=== PATIENT | male | born 1955 | race Caucasian/White ===

== ENCOUNTER → 2017-03-17 | Outpatient (CLI) | payer MEDICARE, OTHER ==
[~2017-03-17] MED LIST: AMLO5TAB4 PO; AMOX500T2 PO; ASP325T PO; ASP325TEC PO; ASP81TEC PO; ASPI-983 PO; ASPI81TA57 PO; ATEN-147 PO; ATEN-158 PO; ATEN50TA PO; CETI10TA17 PO; CETI10TA20 PO; CLOP75TA PO; CLOP75TA28 PO; DIPH25TA65 PO; DOCU-143 PO; DOXA2TAB2 PO; DOXY100T19 PO; EPIN0.3P3 IJ; FAMO20TA5 PO; FENO134C PO; HCT25T PO; HYDR12.56 PO; ISM30TCR PO; ISOS30TA3 PO; LISI2.5T85 PO; LISI5TAB PO; LISINOPRIL; LOVA40TA2 PO; LOVASTATIN; LSRT50T PO; METO-387 PO; MTP25TSR PO; OMG1KC PO; PRD10T PO; PRD20T PO; PRD50T PO; PRED20TA PO; RANI-10 PO; SENN-1 PO; TAMS0.4C2 PO; TICA90TA PO; TMSL.4C PO
== END ==
LOC: CARD 10:42
PROVIDERS: ATTEND Physician Assistant
DX: I34.0 Nonrheumatic mitral (valve) insufficiency; I10 Essential (primary) hypertension; I25.10 Atherosclerotic heart disease of native coronary artery without angina pectoris; I51.7 Cardiomegaly
CPT/HCPCS: 93306

== ENCOUNTER → 2017-06-04 | Outpatient (CLI) | payer MEDICARE, OTHER ==
[~2017-06-04] MED LIST changes: +REGADENOSON 0.4 MG/5 ML SYR (LEXISCAN) IV ONE
[2017-06-04] MEDS: CATHETER FLUSH 10 ML SYR IV PRN ×2 (08:07→09:23)
[2017-06-04 09:19] VITALS: BP 148/76
--- NOTE | 2017-06-05 06:52 | STRESS TEST ---
DATE OF SERVICE: 06/04/2017 PROCEDURE: LEXISCAN MYOVIEW STRESS TEST REFERRING PHYSICIAN: Baseline heart rate is 53, baseline blood pressure 148/76. Baseline EKG is sinus rhythm with left bundle branch block. In summary, the patient was injected with 10.97 mCi of technetium-99 Myoview and the resting images were obtained. Then, the patient received 0.4 mg of Lexiscan followed by 28.7 mCi of technetium-99 Myoview. Throughout the test, there were no EKG changes. The resting and stress images were reviewed and compared in the short axis, horizontal long axis, and vertical long axis views. Review of the images showed reversible ischemia involving the mid to apical anterior wall, anterior septum and anterolateral wall. SSS is 15. SDS 7. TID value 1.01. On the gated images, the left ventricle appeared to be dilated with end diastolic volume 139 mL and systolic volume 73 mL. Calculated ejection fraction 48%. Mild hypokinesia was noted diffusely. CONCLUSION: 1. The patient tolerated Lexiscan well. 2. Left bundle branch block was noted throughout test. 3. Reversible ischemia involving the mid to apical anterior wall, anteroseptum and anterolateral wall. 4. Dilated left ventricle with mild diffuse left ventricular hypokinesia calculated ejection fraction 48%. Job ID: [id number] DocumentID: [id number] Dictated Date: 06/04/2017 11:42:09 Tack Maker Date: 06/04/2017 12:54:33 Dictated By: DESMOND PERKINS MD
== END ==
LOC: CARD 07:42
PROVIDERS: ATTEND Physician Assistant
DX: I25.10 Atherosclerotic heart disease of native coronary artery without angina pectoris (principal); I11.9 Hypertensive heart disease without heart failure; I34.0 Nonrheumatic mitral (valve) insufficiency
CPT/HCPCS: 78452; 93017

== ENCOUNTER 2017-06-11 11:32 | Day surgery (SDC) | payer MEDICARE ==
[2017-06-11] VITALS (9 sets, daily range): BP systolic 146–175; BP diastolic 72–89
[~2017-06-11] VITALS: Ht 182.9 cm; Wt 126.3 kg
[~2017-06-11 11:32] MED LIST changes: -AMLO5TAB4 PO; -METO-387 PO; -REGADENOSON 0.4 MG/5 ML SYR (LEXISCAN) IV ONE; -SENN-1 PO; -TAMS0.4C2 PO
[2017-06-11] MEDS ORDERED: NS IV 1000 ML 1,000 ML ONE (11:34)
[2017-06-11] MEDS ORDERED: HEParin (CATH LAB) 2,000 ML IV ONE (11:34)
--- OUTSIDE RECORDS SUMMARY | 2017-06-11 11:37 | XMS REPORT ---
Author MIKA Pollard [facility] eClinicalWorks Address Unknown Phone Unavailable Care Team Providers Care Ticket Agent Name Role Phone MIKA DAVE Unavailable Allergies, Adverse Reactions, Alerts Substance Reaction Event Type Zocor Info Not Available Drug Allergy Amoxicillin anaphylaxis/swelling Drug Allergy Problems Problem Type Condition Code Onset Dates Condition Status Assessment Angioedema T78.3XXA Active Problem Angioedema T78.3XXA Active Medications Medication Code System Code Instructions Start Date End Date Status Dosage Isosorbide Mononitrate [facility] [address]-64 30 MG Orally Once a day 1 tablet Zyrtec Allergy [facility] [address]-19 10 MG Orally Once a day 1 tablet as needed Colace [facility] [address]-89 100 MG Orally Once a day 1 capsule as needed Nitroglycerin [facility] [address]-59 0.4 mg March 01, 2014 1 tablet by Sublingual route every 5 PRN chest pain; NTE 3 tabs in 15 min Fenofibrate [facility] [address]-10 134 MG Orally Once a day 1 capsule with a meal Flomax [facility] 80329070641 0.4 TAKE ONE CAPSULE BY MOUTH DAILY Aspirin [facility] [address]-36 81 MG Orally Once a day 1 tablet Tylenol Extra Strength [facility] [address]-27 500 MG Orally BID 2 tablets as needed EPINEPHrine [facility] [address]-50 0.3 MG/0.3ML Injection Jun 05, 2015 as directed Plavix [facility] [address]-29 75 MG Orally Once a day January 14, 2014 1 tablet Atenolol [facility] [address]-74 50 mg Oct 15, 2013 1 tablet by Oral route 1 time per day Procedures Procedure Coding System Code Date Office Visit, Est Pt., Level 2 CPT-4 52518 Jul 16, 2016 [facility] VISIT ESTABLISHED PATIENT CPT-4 G0467 Jul 16, 2016 Vital Signs Date/Time: Jul 16, 2016 Cardiac Monitoring Heart Rate 62 bpm Weight 286 lbs Height 72 in BMI 38.78 Index Blood Pressure Diastolic 80 mmHg Blood Pressure Systolic 120 mmHg Results No Known Results Summary Purpose eClinicalWorks Submission
--- OUTSIDE RECORDS SUMMARY | 2017-06-11 11:37 | XMS REPORT ---
Author MIKA Pollard [facility] eClinicalWorks Address Unknown Phone Unavailable Care Team Providers Care Retail Wireless Sales Representative Name Role Phone MIKA DAVE CP Unavailable Allergies No Known Allergies Problems Problem Type Condition Code Onset Dates Condition Status Problem Intermediate coronary syndrome 411.1 Active Problem Essential hypertension, benign 401.1 Active Problem Angioedema T78.3XXA Active Problem Esophageal reflux 530.81 Active Problem Unspecified venous (peripheral) insufficiency 459.81 Active Problem Hypertrophy (benign) of prostate with urinary obstruction and other lower urinary tract symptoms [LUTS] 600.01 Active Problem Lumbago 724.2 Active Medications No Known Medications Results No Known Results Summary Purpose eClinicalWorks Submission
--- OUTSIDE RECORDS SUMMARY | 2017-06-11 11:38 | XMS REPORT ---
Author Author CESAR CHRISTIAN Organization [facility] Address [address] [place] [address] Care Team Providers Care Buffing Wheel Operator Name Role Phone CESAR CHRISTIAN Unavailable PROBLEMS Type Condition ICD9-CM Code [id number] Code Onset Dates Condition Status SNOMED Code Problem Angioedema T78.3XXA Active 53862233 Assessment Acute pain of right knee M25.561 May, Active 73522821 ALLERGIES Substance Reaction Event Type Date Status Zocor Unknown Drug Allergy May, Active Amoxicillin anaphylaxis/swelling Drug Allergy May, Active SOCIAL HISTORY No smoking Hx information available PLAN OF CARE VITAL SIGNS Height 72 in 2016-05-31 Weight 287.8 lbs 2016-05-31 Heart Rate 58 bpm 2016-05-31 Respiratory Rate 22 2016-05-31 BMI 39.03 kg/m2 2016-05-31 Blood pressure systolic 110 mmHg 2016-05-31 Blood pressure diastolic 70 mmHg 2016-05-31 MEDICATIONS Medication Instructions Dosage Frequency Start Date End Date Duration Status Zyrtec Allergy 10 MG Orally Once a day 1 tablet as needed 24h Active Atenolol 50 mg 1 tablet by Oral route 1 time per day Oct, Active Plavix 75 MG Orally Once a day 1 tablet 24h January, Active Aspirin 81 MG Orally Once a day 1 tablet 24h Active Isosorbide Mononitrate 30 MG Orally Once a day 1 tablet 24h Active Flomax 0.4 TAKE ONE CAPSULE BY MOUTH DAILY 30 Active Colace 100 MG Orally Once a day 1 capsule as needed 24h Active Tylenol Extra Strength 500 MG Orally BID 2 tablets as needed 12h Active Fenofibrate 134 MG Orally Once a day 1 capsule with a meal 24h Active RESULTS Name Result Date Reference Range Xray : Knee, Right 3 views (IN HOUSE) 2016-05-31 PROCEDURES Procedure Date Ordered Related Diagnosis Body Site X-RAY EXAM OF KNEE, 3 May 31, 2016 [facility] VISIT ESTABLISHED PATIENT May 31, 2016 Office Visit, Est Pt., Level 3 May 31, 2016 IMMUNIZATIONS No Known Immunizations
--- OUTSIDE RECORDS SUMMARY | 2017-06-11 11:38 | XMS REPORT ---
Author MIKA Pollard [facility] eClinicalWorks Address Unknown Phone Unavailable Care Team Providers Care Manager Client Name Role Phone MIKA DAVE CP Unavailable [...]
--- OUTSIDE RECORDS SUMMARY | 2017-06-11 11:38 | XMS REPORT ---
Author Author MIKA DAVE [facility] eClinicalWorks Address Unknown Phone Unavailable Care Team Providers Care Truck Terminal Manager Name Role Phone MIKA DAVE CP Unavailable [...]
--- OUTSIDE RECORDS SUMMARY | 2017-06-11 11:38 | XMS REPORT ---
Author MIKA Pollard [facility] eClinicalWorks Address Unknown Phone Unavailable Care Team Providers Care Mixer And Blender Name Role Phone MIKA DAVE CP Unavailable Allergies, Adverse Reactions, Alerts Substance Reaction Event Type N.K.D.A. Info Not Available Non Drug Allergy Problems Problem Type Condition ICD-9 Code Onset Dates Condition Status Assessment Angioedema 995.1 Active Problem Intermediate coronary syndrome 411.1 Active Problem Essential hypertension, benign 401.1 Active Problem Angioedema 995.1 Active Problem Esophageal reflux 530.81 Active Problem Unspecified venous (peripheral) insufficiency 459.81 Active Problem Hypertrophy (benign) of prostate with urinary obstruction and other lower urinary tract symptoms [LUTS] 600.01 Active Problem Lumbago 724.2 Active Medications Medication Code System Code Instructions Start Date End Date Status Dosage Nitroglycerin [facility] [address]-34 0.4 mg March 01, 2014 1 tablet by Sublingual route every 5 PRN chest pain; NTE 3 tabs in 15 min Flomax [facility] [address]-62 0.4 mg Jun 23, 2014 1 capsule by Oral route 1 time per day Atenolol [facility] [address]-84 50 mg Oct 15, 2013 1 tablet by Oral route 1 time per day Plavix [facility] [address]-97 75 mg January 14, 2014 1 tablet by Oral route 1 time per day Procedures Procedure Coding System Code Date Office Visit, Est Pt., Level 2 CPT-4 09507 May 16, 2015 [facility] VISIT ESTABLISHED PATIENT CPT-4 G0467 May 16, 2015 Vital Signs Date/Time: May 16, 2015 Temperature 98.0 F Weight 248 lbs Height 72 in BMI 33.63 Index Blood Pressure Diastolic 78 mmHg Blood Pressure Systolic 130 mmHg Cardiac Monitoring Heart Rate 88 bpm Results No Known Results Summary Purpose eClinicalWorks Submission
--- OUTSIDE RECORDS SUMMARY | 2017-06-11 11:38 | XMS REPORT ---
Author Author MIKA DAVE [facility] eClinicalWorks Address Unknown Phone Unavailable Care Team Providers Care Charging Plug Placer Name Role Phone MIKA DAVE CP Unavailable Allergies No Known Allergies Problems Problem Type Condition Code Onset Dates Condition Status Problem Angioedema T78.3XXA Active Medications Medication Code System Code Instructions Start Date End Date Status Dosage Flomax [facility] [id number] 0.4 TAKE ONE CAPSULE BY MOUTH DAILY Results No Known Results Summary Purpose eClinicalWorks Submission
--- OUTSIDE RECORDS SUMMARY | 2017-06-11 11:38 | XMS REPORT ---
Author MIKA Pollard [facility] eClinicalWorks Address Unknown Phone Unavailable Care Team Providers Care English Composition Instructor Name Role Phone MIKA DAVE CP Unavailable Allergies, Adverse Reactions, Alerts Substance Reaction Event Type Zocor Info Not Available Drug Allergy Problems Problem Type Condition Code Onset Dates Condition Status Assessment Angioedema T78.3XXA Active Problem Intermediate coronary syndrome 411.1 Active Problem Essential hypertension, benign 401.1 Active Problem Angioedema T78.3XXA Active Problem Esophageal reflux 530.81 Active Problem Unspecified venous (peripheral) insufficiency 459.81 Active Problem Hypertrophy (benign) of prostate with urinary obstruction and other lower urinary tract symptoms [LUTS] 600.01 Active Problem Lumbago 724.2 Active Medications Medication Code System Code Instructions Start Date End Date Status Dosage Atenolol [facility] [address]-88 50 mg Oct 15, 2013 1 tablet by Oral route 1 time per day Fenofibrate [facility] [address]-58 134 MG Orally Once a day 1 capsule with a meal Plavix [facility] [address]-27 75 mg January 14, 2014 1 tablet by Oral route 1 time per day Flomax [facility] 01960758077 0.4 TAKE ONE CAPSULE BY MOUTH DAILY Zyrtec Allergy [facility] [address]-35 10 MG Orally Once a day 1 tablet as needed Isosorbide Mononitrate [facility] [address]-85 30 MG Orally Once a day 1 tablet Aspirin [facility] [address]-21 81 MG Orally Once a day 1 tablet EPINEPHrine [facility] [address]-32 0.3 MG/0.3ML Injection Jun 05, 2015 as directed Procedures Procedure Coding System Code Date Office Visit, Est Pt., Level 2 CPT-4 87304 Aug 10, 2015 [facility] VISIT ESTABLISHED PATIENT CPT-4 G0467 Aug 10, 2015 Vital Signs Date/Time: Aug 10, 2015 Temperature 98.1 F Weight 279.0 lbs Height 72 in BMI 37.84 Index Blood Pressure Diastolic 90 mmHg Blood Pressure Systolic 140 mmHg Cardiac Monitoring Heart Rate 84 bpm Results No Known Results Summary Purpose eClinicalWorks Submission
--- OUTSIDE RECORDS SUMMARY | 2017-06-11 11:39 | XMS REPORT ---
Author MIKA Pollard [facility] eClinicalWorks Address Unknown Phone Unavailable Care Team Providers Care Container Washer Name Role Phone MIKA DAVE CP Unavailable [...]
--- OUTSIDE RECORDS SUMMARY | 2017-06-11 11:39 | XMS REPORT ---
Author MIKA Pollard [facility] eClinicalWorks Address Unknown Phone Unavailable Care Team Providers Care Avionics Engineer Name Role Phone MIKA DAVE CP Unavailable [...]
--- OUTSIDE RECORDS SUMMARY | 2017-06-11 11:39 | XMS REPORT ---
Author Author MIKA DAVE [facility] eClinicalWorks Address Unknown Phone Unavailable Care Team Providers Care Software Design Manager Name Role Phone MIKA DAVE CP Unavailable Allergies No Known Allergies Problems Problem Type Condition ICD-9 Code Onset Dates Condition Status Problem Intermediate [...]
--- OUTSIDE RECORDS SUMMARY | 2017-06-11 11:39 | XMS REPORT ---
Author MIKA Pollard [facility] eClinicalWorks Address Unknown Phone Unavailable Care Team Providers Care Tab Cutting Machine Operator Name Role Phone MIKA DAVE CP Unavailable [...]
--- OUTSIDE RECORDS SUMMARY | 2017-06-11 11:40 | XMS REPORT ---
Author GILDARDO Ramirez [facility] eClinicalWorks Address Unknown Phone Unavailable Care Team Providers Care Postdoctoral Scholar Name Role Phone GILDARDO BAZZI CP Unavailable Allergies No Known Allergies Problems Problem Type Condition Code Onset Dates Condition Status Assessment Angioedema T78.3XXA Active Problem Angioedema T78.3XXA Active Medications No Known Medications Procedures Procedure Coding System Code Date THER/PROPH/DIAG INJ, SC/IM CPT-4 05331 Jul 24, 2016 DEPO MEDROL 80 MG/ML CPT-4 J1040 Jul 24, 2016 BENADRYL (DIPHENHY HCL) 50 MG/ML (UP TO 50 MG) CPT-4 J1200 Jul 24, 2016 Results No Known Results Summary Purpose eClinicalWorks Submission
--- OUTSIDE RECORDS SUMMARY | 2017-06-11 11:40 | XMS REPORT ---
Author Author MIKA DAVE [facility] eClinicalWorks Address Unknown Phone Unavailable Care Team Providers Care Specialty Plant Supervisor Name Role Phone MIKA DAVE CP Unavailable [...] Date End Date Status Dosage Isosorbide Mononitrate [facility] [address]-24 30 MG Orally Once a day 1 tablet Plavix [facility] [address]-58 75 MG Orally Once a day January 14, 2014 1 tablet Results No Known Results Summary Purpose eClinicalWorks Submission
--- OUTSIDE RECORDS SUMMARY | 2017-06-11 11:40 | XMS REPORT ---
Author Author CESAR CHRISTIAN Organization [facility] Address [address] [place] [address] Care Team Providers Care Student Recruiter Name Role Phone CESAR CHRISTIAN Unavailable PROBLEMS Type Condition ICD9-CM Code RHP66-WN Code Onset Dates Condition Status SNOMED Code Problem Angioedema T78.3XXA Active 13048392 Assessment Bug bite, initial encounter W57.XXXA May, Active 540668426 ALLERGIES Substance Reaction Event Type Date Status Zocor Unknown Drug Allergy May, Active Amoxicillin anaphylaxis/swelling Drug Allergy May, Active SOCIAL HISTORY No smoking Hx information available PLAN OF CARE VITAL SIGNS Height 72 in 2016-05-14 Weight 284.6 lbs 2016-05-14 Heart Rate 62 bpm 2016-05-14 Respiratory Rate 22 2016-05-14 BMI 38.59 kg/m2 2016-05-14 Blood pressure systolic 138 mmHg 2016-05-14 Blood pressure diastolic 82 mmHg 2016-05-14 MEDICATIONS Medication Instructions Dosage Frequency Start Date End Date Duration Status Colace 100 MG Orally Once a day 1 capsule as needed 24h Active Plavix 75 MG Orally Once a day 1 tablet 24h January, Active Aspirin 81 MG Orally Once a day 1 tablet 24h Active Atenolol 50 mg 1 tablet by Oral route 1 time per day Oct, Active Fenofibrate 134 MG Orally Once a day 1 capsule with a meal 24h Active Isosorbide Mononitrate 30 MG Orally Once a day 1 tablet 24h Active Bactrim DS 800-160 MG Orally Twice a day 1 tablet 12h May,May 10 day(s) Active Zyrtec Allergy 10 MG Orally Once a day 1 tablet as needed 24h Active Bactroban 2 % Externally Three times a day 1 application to affected area 8h May, May, 7 days Active Flomax 0.4 TAKE ONE CAPSULE BY MOUTH DAILY 30 Active RESULTS No Results PROCEDURES Procedure Date Ordered Related Diagnosis Body Site [facility] EST[facility] PATIENT May 14, 2016 Office Visit, Est Pt., Level 3 May 14, 2016 IMMUNIZATIONS No Known Immunizations
--- OUTSIDE RECORDS SUMMARY | 2017-06-11 11:40 | XMS REPORT ---
Author Author MIKA DAVE [facility] eClinicalWorks Address Unknown Phone Unavailable Care Team Providers Care Transportation Supervisor Name Role Phone MIKA DAVE CP [...]
[2017-06-11] MEDS ORDERED: NS IV 1000 ML 1,000 ML IV SCH ×2 (12:00→14:32)
--- NOTE | 2017-06-11 12:19 | Diagnostic Imaging Report ---
INDICATION: Cardiac catheterization/coronary artery disease. TECHNIQUE: A portable upright view of the chest was obtained at 1210 hours. COMPARISON: 02/24/2015. FINDINGS: The heart size and pulmonary vascularity are within normal limits. The prominence of the upper mediastinum is not significantly changed. There is no pneumothorax, consolidation, or significant pleural fluid. IMPRESSION: No CT evidence of acute abnormality or adverse change when compared to the previous study. Dictated by: Dictated on workstation # [id number]
[2017-06-11 12:21] LABS: BILIRUBIN,URINE NEGATIVE (NEGATIVE); KETONES,URINE NEGATIVE (NEGATIVE); LEUKOCYTE ESTERASE ,URINE NEGATIVE (NEGATIVE); MEAN PLATELET VOLUME 11.5 FL (7.4-10.4); NITRITE,URINE NEGATIVE (NEGATIVE); PH,URINE 8 (5-9); PROTEIN,URINE NEGATIVE (NEGATIVE); RED BLOOD COUNT 4.97 10^6/uL (4.35-5.85); RED CELL DISTRIBUTION WIDTH 13.8 % (10.0-14.5); UROBILINOGEN,URINE NORMAL (NORMAL); WHITE BLOOD COUNT 6.4 10^3/uL (4.3-11.0)
[2017-06-11 12:33] LABS: PROTHROMBIN TIME PATIENT 12.8 SEC (12.2-14.7)
[2017-06-11 12:43] LABS: ALANINE AMINOTRANSFERASE 21 U/L (0-55); ALBUMIN 4.1 GM/DL (3.2-4.5); ANION GAP 7 MMOL/L (5-14); ASPARTATE AMINO TRANSFERASE 19 U/L (5-34); BILIRUBIN,TOTAL 0.6 MG/DL (0.1-1.0); BLOOD UREA NITROGEN 14 MG/DL (7-18); BUN/CREATININE RATIO 17; CALCIUM 9.9 MG/DL (8.5-10.1); CARBON DIOXIDE 27 MMOL/L (21-32); CHLORIDE 105 MMOL/L (98-107); CHOLESTEROL 206 MG/DL (< 200); CREATININE SERUM 0.84 MG/DL (0.60-1.30); DIRECT LDL 134 MG/DL (1-129); GFR ESTIMATED > 60; GLUCOSE 96 MG/DL (70-105); POTASSIUM 3.8 MMOL/L (3.6-5.0); SODIUM 139 MMOL/L (135-145); TOTAL PROTEIN 7.7 GM/DL (6.4-8.2); TRIGLYCERIDES 128 MG/DL (<150); VLDL CHOLESTEROL 26 MG/DL (5-40)
[2017-06-11] MEDS ORDERED: CETI10TA20 PO (12:44)
[2017-06-11] MEDS ORDERED: TAMS0.4C2 PO (12:44)
[2017-06-11] MEDS ORDERED: AMLO5TAB4 PO (12:44)
[2017-06-11] MEDS ORDERED: METO-270 PO (12:44)
[2017-06-11] MEDS ORDERED: INFLUENZA TRIvalent 2017-2018 0.5 ML/45 MCG SYR IM ONE (12:45)
[2017-06-11] MEDS ORDERED: SENN-1 PO (12:45)
--- NOTE | 2017-06-11 13:06 | Cardiac Procedure Note-CS/ASA ---
Pre-Procedure Note Pre-Op Procedure Note H&P Reviewed The H&P was reviewed, patient examined and no changes noted. Date H&P Reviewed: Jun 11, 2017 Time H&P Reviewed: 11:55 Conscious Sedation Pre-Proced Time Reviewed: 11:55 ASA Class: 3 Airway Mallampati Classification: (ewiiaapaayp appropriate class) I. II. III, IV Lungs Heart ASA score ASA 1: a normal healthy patient ASA 2: a patient with a mild systemic disease (mid diabetes, controlled hypertension, obesity x ASA 3: a patient with a severe systemic disease that limits activity (angina , COPD, prior Myocardial infarction) ASA 4: a patient with an incapacitating disease that is a constant threat to life (CHF, renal failure) ASA 5: a moribund patient not expected to survive 24 hrs. (ruptured aneurysm) ASA 6: a declared brain patient whose organs are being harvested. For emergent operations, add the letter E after the classification Grade 3 Sedation Plan: Analgesia, Amnesia, Plan communicated to team members, Discussed options with patient/fam, Discussed risks with patient/fam Note The patient is an appropriate candidate to undergo the planned procedure, sedation, and anesthesia. The patient immediately re-assessed prior to indication. DESMOND PERKINS MD Jun 11, 2017 13:05
[2017-06-11] MEDS ORDERED: MIDAZOLAM 5 MG/5 ML (VERSED) VIAL ONE (13:26)
[2017-06-11] MEDS ORDERED: fentaNYL INJECTION 100 MCG/2 ML AMP ONE (13:26)
--- NOTE | 2017-06-11 14:34 | Discharge Inst-Post CATH ---
Discharge Inst-CATH Post Cardiac Cath D/C Inst Follow Up/Plan Appointment with Dr. Peguero's office in 2-4 weeks CARDIAC CATH DISCHARGE INSTRUCTIONS *Hold Metformin for 48 hours post heart cath. ACTIVITY * Go Home directly and rest. * Limit activity of the leg (or wrist if it was used) for 7 days including aerobics, swimming, jogging, bicycling, etc. * Restrict stair-climbing for 7 days if possible, if not, climb up with your non -cath leg, then bring together on the same step. * Avoid lifting, pushing, pulling or excessive movement of the affected extremity for 7 days. * Customary sexual activity may be resumed after 2 days-use caution not to use a position that strains or causes pain to the affected extremity. * No driving for 24 hours. * NO SMOKING. * Avoid straining for bowel movements for 7 days. * Gentle walking on level ground is allowed. * Returning to work will depend on the type of procedure and the results. Your doctor will discuss this with you. CALL YOUR DOCTOR FOR ANY OF THE FOLLOWING: *If bleeding from the puncture site occurs- Apply gentle pressure to site with clean cloth and call your doctor or EMS. * If a knot or lump forms under the skin, increases in size, or causes pain. * If bruising appears to be worsening or moving further down your leg instead of disappearing. * Temperature above 101 F. CARE OF YOUR GROIN INCISION; * Bruising or purple discoloration of the skin near the puncture site is common. * You may shower only, no bathtub bathing for 5 days. Be careful to avoid slipping as your leg may feel stiff. * If a closure device was used on your femoral artery, please see the attached guide regarding care of the device and your leg. * REMOVE the dressing from your groin the next day after your procedure in the shower. CARE OF YOUR WRIST INCISION; * Bruising or purple discoloration of the skin near the puncture site is common. * You may shower. * DO NOT submerge wrist. * Remove dressing in 24 hours. DESMOND PEGUERO MD Jun 11, 2017 14:34
--- NOTE | 2017-06-11 14:39 | Cardiac Cath Report ---
Cardiac Cath Report Physician (s)/Line Service Technician (s) Physician DESMOND PERKINS MD Pre-Procedure Diagnosis Pre-Procedure Diagnosis: coronary artery disease Post-Procedure Note Procedure Start Date: Jun 11, 2017 Procedure Start Time: 14:00 Name of Procedure: left heart catheterization Findings/Procedure Note PROCEDURE NOTE: After explaining the procedure to the patient, all pros and cons were explained, all questions were answered. The patient signed the consent and then she was placed on the cardiac catheterization laboratory. The patient was placed on the cardiac catheterization laboratory. Groin was prepped SL fashion local anesthesia was used. Sheath placed in the artery. Hanh right and left catheter were used to access the coronary system. Pigtail was used to access the left ventricular cavity. Left ventriculogram was not done, pressure was measured Aortic arch angiogram was not done At the end of the procedure the sheath was removed. Closure device was used FINDINGS: Hemodynamics LV 164/14 end-diastolic pressure 14 Aorta 149/73 mean of 85 ANATOMY: Left Main has 40-50 percent distal stenosis the artery is fairly large, nonobstructive disease Left Anterior Descending has patent stent with 40 percent instent restenosis of the proximal LAD, mild disease distally, diagonal artery has 70 percent ostial stenosis that is fairly small artery not amendable to intervention Left Circumflex is moderate in size with mild disease nonobstructive disease Right Coronory Artery is moderate in size with mild disease obstructive disease LV Gram was not done, pressure was measured CONCLUSION: 1. 40-50 percent stenosis in the distal left main, the artery is fairly large over 4 mm in diameter, nonobstructive disease 2. 40-50 percent stenosis within the stent in the proximal LAD, nonobstructive disease, mild disease distally 3. 70 percent stenosis of the ostium of the second diagonal branch that is fairly small artery not amendable to intervention 4. Mild disease in the circumflex and right coronary artery nonobstructive disease DISCUSSION AND RECOMMENDATION: Medical therapy is recommended, patient is intolerant to statin. Anesthesia Type: Conscious Sedation Estimated blood loss (mL): 10 ml Contrast Amount: 45 ml Total Radiation Dose: 690 mGy Post-Procedure Diagnosis Post-operative diagnosis: coronary artery disease Hypertension Hyperlipidemia (1) CAD (coronary artery disease) Qualifiers: (2) HTN (hypertension) Qualifiers: Qualified Codes: I15.0 - Renovascular hypertension (3) Hyperlipidemia LDL goal <100 DESMOND PERKINS MD Jun 11, 2017 14:39
[2017-06-11] MEDS ORDERED: PATIENT MAY USE OWN MEDS, ALL PO SCH (14:45)
== END 2017-06-11 18:52 ==
LOC: CATH 11:32 → 4TH 14:45 → CATH 18:52
PROVIDERS: ATTEND Internal Medicine Cardiovascular Disease
DX: R94.39 Abnormal result of other cardiovascular function study (principal); I25.10 Atherosclerotic heart disease of native coronary artery without angina pectoris; I10 Essential (primary) hypertension; E78.5 Hyperlipidemia, unspecified; I25.5 Ischemic cardiomyopathy; I44.7 Left bundle-branch block, unspecified; I65.23 Occlusion and stenosis of bilateral carotid arteries; Z79.899 Other long term (current) drug therapy; Z95.5 Presence of coronary angioplasty implant and graft; Z87.891 Personal history of nicotine dependence
CPT/HCPCS: 36415; 71010; 80053; 80061; 81000; 85027; 85610; 85730; 87081; 93005; 93458

== ENCOUNTER → 2017-10-01 | Outpatient (CLI) | payer MEDICARE ==
[~2017-10-01] MED LIST changes: +AMLO5TAB4 PO; +METO-387 PO; +SENN-1 PO; +TAMS0.4C2 PO
[2017-10-01 09:56] LABS: ALANINE AMINOTRANSFERASE 16 U/L (0-55); ALKALINE PHOSPHATASE 57 U/L (40-136); BILIRUBIN,TOTAL 0.5 MG/DL (0.1-1.0); BUN/CREATININE RATIO 14; CALCIUM 9.6 MG/DL (8.5-10.1); CARBON DIOXIDE 22 MMOL/L (21-32); CHLORIDE 109 MMOL/L (98-107); CHOLESTEROL 152 MG/DL (< 200); CREATININE SERUM 0.85 MG/DL (0.60-1.30); GFR ESTIMATED > 60; GLUCOSE 98 MG/DL (70-105); HDL CHOLESTEROL 43 MG/DL (40-60); POTASSIUM 4.1 MMOL/L (3.6-5.0); SODIUM 142 MMOL/L (135-145); TOTAL PROTEIN 7.4 GM/DL (6.4-8.2); TRIGLYCERIDES 71 MG/DL (<150); VLDL CHOLESTEROL 14 MG/DL (5-40)
== END ==
LOC: LAB 08:49
PROVIDERS: ATTEND Physician Assistant
DX: E78.2 Mixed hyperlipidemia (principal)
CPT/HCPCS: 36415; 80053; 80061

== ENCOUNTER → 2018-01-08 | Outpatient (CLI) | payer MEDICARE, OTHER ==
[~2018-01-08] MED LIST changes: -SENN-1 PO; +SENN-145 PO
[2018-01-08 09:07] LABS: ALBUMIN 4.3 GM/DL (3.2-4.5); BILIRUBIN,DIRECT 0.3 MG/DL (0.0-0.3); BILIRUBIN,INDIRECT 0.2 MG/DL; BILIRUBIN,TOTAL 0.5 MG/DL (0.1-1.0); TOTAL PROTEIN 7.7 GM/DL (6.4-8.2)
== END ==
LOC: LAB 08:29
PROVIDERS: ATTEND Physician Assistant
DX: I25.10 Atherosclerotic heart disease of native coronary artery without angina pectoris (principal); E78.5 Hyperlipidemia, unspecified; I10 Essential (primary) hypertension
CPT/HCPCS: 36415; 80061; 80076

== ENCOUNTER 2018-04-22 15:03 | Emergency (ER) | payer MEDICARE, OTHER ==
[~2018-04-22] VITALS: Ht 182.9 cm; Wt 125.0 kg
--- OUTSIDE RECORDS SUMMARY | 2018-04-22 15:09 | XMS REPORT ---
Author Author MIKA DAVE Organization [facility] Address [address] [place] [address] Care Team Providers Care Manager Of Tax Name Role Phone MIKA DAVE Unavailable PROBLEMS Type Condition ICD9-CM Code TBM15-VV Code Onset Dates Condition Status SNOMED Code Problem Benign prostatic hyperplasia with lower urinary tract symptoms, symptom details unspecified N40.1 Active 302444296 Problem Obstructive sleep apnea G47.33 Active 49603367 Problem Angioedema T78.3XXA Active 47508899 Problem Low back pain M54.5 Active 821087528 Problem Essential hypertension I10 Active [id number] ALLERGIES No Information ENCOUNTERS Encounter Location Date Diagnosis [place] [address] [address] Feb, Angioedema, subsequent encounter T78.3XXD [place] [address] 212[address]- [address]69 January, [place] [address] 01792- 9246 January, [facility] [address] [place] [id number] [place] [address] 44645- 4988 Nov, [facility] [address] 96993- 6983 Nov, [facility] [address] 16879- 4794 Oct, Essential hypertension I10 ; Angioedema T78.3XXA and Benign prostatic hyperplasia with lower urinary tract symptoms, symptom details unspecified N40.1 [place] [address] [place] [id number] [place] [address]004- 2010 Oct, [facility] [address] [place] [id number] Sep, Dental caries K02.9 [facility] [address] [place] [id number] [place] [address] 68791- 1965 Jul, [facility] [address] [place] [address] [id number] [place] [address] [id number] 14 Jul, 2017 Dental examination Z01.20 [facility] [address] 02900- 8793 03 Jul, 2017 [facility] [address] [place] [id number] [place] [address] 22856- 7527 Jun, [facility] [address] 36345- 4472 May, Bronchitis J40 [facility] [address] 33152- 6497 Apr, Obstructive sleep apnea G47.33 and Angioedema T78.3XXA [facility] [address] [place] [id number] [place] [address] 56839- 2438 January, Low back pain M54.5 [facility] [address] 37550- 1106 18 Dec, 2016 Low back pain M54.5 [facility] [address] [place] [id number] [place] [address] 64447- 8338 10 Dec, 2016 Essential hypertension I10 [facility] [address] [place] [id number] [place] [address] 30164- 2939 07 Dec, 2016 [facility] [address] [place] [address] [id number] [place] [address] 76980 -1207 16 Jul, 2016 Angioedema T78.3XXA [facility] [address] [place] [id number] [place] [address] 65807- 9163 14 Jul, 2016 [facility] [address] [place] [id number] [place] [address] 49862- 7217 08 Jul, 2016 Angioedema T78.3XXA [facility] [address] [place] [address] [id number] [place] [address] 39266- 8369 Jul, [facility] [address] 45661 -8145 May, Acute pain of right knee M25.561 [facility] [address] [place] [id number] [place] [address] 74935 -9969 May, Bug bite, initial encounter W57.XXXA [facility] [address] 73933- 6343 January, Sleep apnea, unspecified type G47.30 [place] [address] 10161- 7652 January, Sleep apnea, unspecified type G47.30 [place] [address] [place] [id number] [place] [address] 27080- 7366 January, [place] [address] 16975- 5326 January, [facility] [address] [place] [id number] [place] [address] 07594- 0512 Dec, [place] [address] [place] [id number] [place] [address] 03446- 3357 Nov, Angioedema T78.3XXA [place] [address] [place] [id number] [place] [address] 54244- 8894 Oct, [facility] [address] [place] [id number] [place] [address] 47347- 9714 Oct, [facility] [address] [place] [id number] [place] [address] 40122- 0431 Sep, [place] [address] [place] [id number] [place] [address] 52058- 0692 Sep, Angioedema T78.3XXA [facility] [address] [place] [id number] [place] [address] 25625- 9091 Sep, [place] [address] [address] 2546 Aug, Angioedema T78.3XXA [facility] [address] [place] [id number] [place] [address] 2546 Aug, [facility] [id number] [place] [address] 2546 May, 2014 [facility] [address] [place] [id number] [place] [address], [place] [address] 2546 28 May, 2014 [facility] [id number] [place] [address], [place] [address] 2546 22 May, 2014 Angioedema 995.1 [facility] [id number] [place] [address] 2546 18 May, 2014 [facility] [address] [place] [id number] [place] [address] 28403 2546 May, 2014 [facility] [address] [address] 2548 08 May, 2014 Angioedema 995.1 [facility] [id number] [place] [address] 2546 Mar, 2014 [facility] [address] [address] 2546 Mar, 2014 [facility] [address] [address] 2546 Mar, 2014 [facility] [address] [address] 2546 Mar, 2014 [facility] [address] [address] 2546 Feb, [facility] [id number] [place] [address] 2546 Feb, [facility] [address] [address] 2546 30 Dec, 2014 [facility] [place] [facility] [address] [id number] [place] [address]- 5116 14 Dec, 2014 [facility] [place] [facility] [address] [id number] [place] [address]- 7337 13 Dec, 2014 [facility] [place] [facility] [address] [id number] [place] [address]- 8733 Oct, [facility] [place] [facility] [address] [id number] [place] [address]- 7324 Oct, [facility] [place] [facility] [address] [id number] [place] [address]- 1269 Sep, [facility] [place] [facility] [address] [id number] [place] [address]- 6340 Sep, [facility] [place] [facility] [address] [id number] [place] [address]- 1471 Aug, [facility] [place] [facility] [address] [id number] [place] [address]- 1233 Aug, [facility] [place] [facility] [address] [id number] [place] [address]- 9785 Aug, [facility] [place] [facility] [address] [id number] [place] [address]- 9492 Aug, [facility] [place] [facility] [address] [id number] [place] [address]- 4782 Aug, [facility] [place] [facility] [address] [id number] [place] [address]- 6237 Jul, [facility] [place] [facility] [address] [id number] [place] [address]- 6903 Jul, [facility] [place] [facility] [address] [id number] [place] [address]- 8191 Jul, [facility] [place] [facility] [address] [id number] [place] [address]- 2951 Jul, [facility] [place] [facility] [address] [id number] [place] [address]- 8886 Jun, [facility] [place] [facility] [address] [id number] [place] [address]- 7244 Jun, [facility] [place] [facility] [address] [id number] [place] [address]- 3360 Jun, [facility] [place] [facility] [address] [id number] [place] [address]- 8968 Jun, [facility] [place] [facility] [address] [id number] [place] [address]- 3563 May, [facility] [place] [facility] [address] [id number] [place] [address]- 6843 12 May, 2014 [facility] [place] [facility] [address] [id number] [place] [address]- 7014 08 May, 2014 [facility] [place] [facility] [address] [id number] [place] [address]- 5753 May, [facility] [place] [facility] [address] [id number] [place] [address]- 0114 05 May, 2014 [facility] [place] [facility] [address] [id number] [place] [address]- 8106 05 May, 2014 [facility] [place] [facility] [address] [id number] [place] [address]- 8204 Mar, [facility] [place] [facility] [address] [id number] [place] [address]- 6628 Mar, [facility] [place] [facility] [address] [id number] [place] [address]- 1057 Feb, [facility] [place] [facility] [address] [id number] [place] [address]- 4125 Feb, [facility] [place] [facility] [address] [id number] [place] [address]- 8911 Feb, [facility] [place] [facility] [address] [id number] [place] [address]- 9321 Feb, [facility] [place] [facility] [address] [id number] [place] [address]- 1219 January, [facility] [address] [id number] [place] 0192 January, [facility] [address] [id number] [place] [address]- 3623 January, [facility] [address] [id number] [place] [address]- 2830 January, [facility] [address] [id number] [place] [address]- 6726 January, [facility] [address] [id number] [place] 7996 January, [facility] [address] [id number] [place] [address]- 4360 January, [facility] [address] [id number] [place] [address]- 4798 January, [facility] [address] [id number] [place] [address]- 0942 Dec, [facility] [address] [id number] [place] [address]- 3420 Dec, [facility] [address] [id number] [place] [address]- 8369 Dec, [facility] [place] [facility] [address] [id number] [place] [address]- 5942 Dec, [facility] [address] [id number] [place] [address]- 1821 Dec, [facility] [place] [facility] [address] [id number] [place] [address]- 1802 Dec, [facility] [place] [facility] [address] [id number] [place] [address]- 1801 Dec, [facility] [place] [facility] [address] [id number] [place] [address]- 7222 Dec, [facility] [place] [facility] [address] [id number] [place] [address]- 4502 Dec, [facility] [place] [facility] [address] [id number] [place] [address]- 5919 Dec, [facility] [place] [facility] [address] [id number] [place] [address]- 3710 Dec, [facility] [place] [facility] [address] [id number] [place] [address]- 1793 Dec, [facility] [place] [facility] [address] [id number] [place] [address]- 3644 Dec, [facility] [place] [facility] [address] [id number] [place] [address]- 0935 Dec, [facility] [place] [facility] [address] [id number] [place] [address]- 3350 Dec, [facility] [place] [facility] [address] [id number] [place] [address]- 0845 Dec, [facility] [place] [facility] [address] [id number] [place] [address]- 3536 Nov, [facility] [place] [facility] [address] [id number] [place] [address]- 5196 Nov, [facility] [place] [facility] [address] [id number] [place] [address]- 5408 Nov, [facility] [place] [facility] [address] [id number] [place] [address]- 2499 Nov, [facility] [place] [facility] [address] [id number] [place] [address]- 2974 Nov, [facility] [place] [facility] [address] [id number] [place] [address]- 0554 Nov, [facility] [place] [facility] [address] [id number] [place] [address]- 8066 05 Nov, 2013 [facility] [place] [facility] [address] [id number] [place] [address]- 7096 Nov, [facility] [place] [facility] [address] [id number] [place] [address]- 8366 Oct, [facility] [place] [facility] [address] [id number] [place] [address]- 4886 Oct, [facility] [place] [facility] [address] [facility] [id number] [place] [address]- 0386 Oct, [facility] [place] [facility] [address] [id number] [place] [address]- 9130 Oct, [facility] [place] [facility] [address] [id number] [place] [address]- 9021 Oct, [facility] [place] [facility] [address] [facility] [id number] [place] [address]- 9897 Oct, [facility] [place] [facility] [address] [place] [id number] [place] [address]- 1664 Oct, [facility] [place] [facility] [address] [facility] [id number] [place] [address]- 1096 Oct, [facility] [place] [facility] [address] [facility] [id number] [place] [address]- 6022 Oct, [facility] [place] [facility] [address] [facility] [id number] [place] [address]- 0039 Oct, [facility] [place] [facility] [address] [facility] [id number] [place] [address]- 8485 Oct, [facility] [place] [facility] [address] [facility] [id number] [place] [address]- 2547 Oct, [facility] [place] [facility] [address] [facility] [id number] [place] [address]- 2716 Sep, [facility] [place] [facility] [address] [facility] [id number] [place] [address]- 0000 Sep, [facility] [place] [facility] [address] [facility] [id number] [place] [address]- 4911 Sep, [facility] [place] [facility] [address] [id number] [place] [address]- 2526 Sep, [facility] [place] [facility] [address] [id number] [place] [address]- 0400 Sep, [facility] [place] [facility] [address] [id number] [place] [address]- 1367 Sep, [facility] [place] [facility] [address] [id number] [place] [address]- 1173 Sep, [facility] [place] [facility] [address] [id number] [place] [address]- 4402 Sep, [facility] [place] [facility] [address] [id number] [place] [address]- 8689 Sep, [facility] [place] [facility] [address] [id number] [place] [address]- 3334 Sep, [facility] [place] [facility] [address] [id number] [place] [address]- 4564 Aug, [facility] [place] [facility] [address] [id number] [place] [address]- 2326 30 Aug, 2013 [facility] [place] [facility] [address] [id number] [place] [address]- 7950 Aug, [facility] [place] [facility] [address] [id number] [place] [address]- 2131 Aug, [facility] [place] [facility] [address] [id number] [address]- 8184 Aug, [facility] [place] [facility] [address] [id number] [place] [address]- 8396 Aug, [facility] [place] [facility] [address] [id number] [place] [address]- 0283 14 Aug, 2013 [facility] [place] [facility] [address] [id number] [place] [address]- 5397 14 Aug, 2013 [facility] [place] [facility] [address] [id number] [place] [address]- 8697 Jul, [facility] [place] [facility] [address] [id number] [place] [address]- 3187 Jul, [facility] [place] [facility] [address] [id number] [place] [address]- 2545 Jul, [facility] [place] [facility] [address] [id number] [place] [address]- 7679 Jul, [facility] [place] [facility] [address] [id number] [place] [address]- 7276 Jul, [facility] [place] [facility] [address] [id number] [place] [address]- 2673 Jul, [facility] [place] [facility] [address] [id number] [place] [address]- 2192 Jul, [facility] [place] [facility] [address] [id number] [place] [address]- 6415 Jul, [facility] [place] [facility] [address] [id number] [place] [address]- 8709 Jun, [facility] [place] [facility] [address] [id number] [place] [address]- 0324 Jun, [facility] [place] [facility] [address] [id number] [place] [address]- 7634 Jun, [facility] [place] [facility] [address] [id number] [place] [address]- 7595 Jun, [facility] [place] [facility] [address] [id number], [place] [address]- 0959 Jun, [facility] [place] [facility] [address] [id number] [place] [address]- 6854 24 Jun, 2013 [facility] [place] [facility] [address] [id number] [place] [address]- 8161 Jun, [facility] [place] [facility] [address] [id number], [place] [address]- 9036 19 Jun, 2013 [facility] [place] [facility] [address] [id number] [place] [address]- 8122 Jun, [facility] [place] [facility] [address] [id number] [place] [address]- 7600 Jun, [facility] [place] [facility] [address] [id number] [place] [address]- 1568 15 Jun, 2013 [facility] [place] [facility] [address] [id number] [place] [address]- 3073 Jun, [facility] [place] [facility] [address] [id number] [place] [address]- 6282 Jun, [facility] [place] [facility] [address] [id number] [place] [address]- 8480 Jun, [facility] [place] [facility] [address] [id number] [place] [address]- 1601 Jun, [facility] [place] [facility] [address] [id number] [place] [address]- 6581 Jun, [facility] [place] [facility] [address] [id number] [place] [address]- 0807 Jun, [facility] [place] [facility] [address] [id number] [place] [address]- 7378 Jun, [facility] [place] [facility] [address] [id number] [place] [address]- 5278 06 May, 2013 [facility] [place] [facility] [address] [id number] [place] [address]- 3150 04 May, 2013 [facility] [place] [facility] [address] [id number] [place] [address]- 1242 May, [facility] [place] [facility] [address] [id number] [place] [address]- 5452 Apr, [facility] [place] [facility] [address] [id number] [place] [address]- 9702 Apr, [facility] [place] [facility] [address] [id number] [place] [address]- 6756 Apr, [facility] [place] [facility] [address] [id number] [place] [address]- 7409 Apr, [facility] [place] [facility] [address] [id number] [place] [address]- 1466 Apr, [facility] [place] [facility] [address] [id number] [place] [address]- 1953 Apr, [facility] [place] [facility] [address] [id number] [place] [address]- 7727 Mar, [facility] [place] [facility] [address] [id number] [place] [address]- 9220 Mar, [facility] [place] [facility] [address] [id number] [place] [address]- 7703 Mar, [facility] [place] [facility] [address] [id number] [place] [address]- 3391 Feb, [facility] [place] [facility] [address] [id number] [place] [address]- 7752 Feb, [facility] [place] [facility] [address] [id number] [place] [address] Feb, [facility] [place] [facility] [address] [id number] [place] [address] Feb, [facility] [place] [facility] [address] [id number] [place] [address] January, [facility] [place] [facility] [address] [id number] [place] [address] January, [facility] [place] [facility] [address] [id number] [place] [address] Dec, [facility] [place] [facility] [address] [id number] [place] [address] Dec, [facility] [place] [facility] [address] [id number] [place] [address] Dec, [facility] [place] [facility] [address] [id number] [place] [address] 08 Dec, 2012 [facility] [address] [id number] [place] [address] Dec, [facility] [address] [id number] [place] [address] Nov, [facility] [address] [id number] [place] [address] 25[address] Nov, [facility] [address] [id number] [place] [address] Nov, [facility] [address] [id number] [place] [address] Nov, [facility] [address] [id number] [place] [address] Nov, [facility] [address] [id number] [place] [address] 2546 Nov, [facility] [address] [id number] [place] [address] Nov, [facility] [address] [id number] [place] [address] Oct, [facility] [address] [id number] [place] [address] Oct, [facility] [address] [id number] [place] [address] Oct, [facility] [address] [id number] [place] [address] Oct, [facility] [address] [id number] [place] [address] Sep, [facility] [address] [id number] [place] [address] Sep, [facility] [address] [id number] [place] [address] Sep, [facility] [place] [facility] [address] [id number] [place] [address] Aug, [facility] [place] [facility] [address] [id number] [place] [address] Aug, [facility] [place] [facility] [address] [id number] [place] [address] Aug, [facility] [place] [facility] [address] [id number] [place] [address] Aug, [facility] [place] [facility] [address] [id number] [place] [address]279 Aug, [facility] [place] [facility] [address] [id number] [place] [address] Aug, [facility] [place] [facility] [address] [id number] [place] [address] 9[address] Jul, [facility] [place] [facility] [address] [id number] [place] [address] Jul, [facility] [place] [facility] [address] [id number] [place] [address] Jul, [facility] [place] [facility] [address] [id number] [place] [address] Jul, [facility] [place] [facility] [address] [id number], [place] [address] Jun, [facility] [place] [facility] [address] [id number], [place] [address] Jun, [facility] [place] [facility] [address] [id number] [place] [address] Apr, [facility] [place] [facility] [address] [id number], [place] [address] Apr, [facility] [place] [facility] [address] [id number] [place] [address] Apr, [facility] [place] [facility] [address] [id number] [place] [address] Apr, [facility] [place] [facility] [address] [id number] [place] [address] Mar, [facility] [place] [facility] [address] [id number] [place] [address]- [address] Mar, [facility] [place] [facility] [address] [id number] [place] [address] Mar, [facility] [place] [facility] [address] [id number] [place] [address] Mar, [facility] [place] [facility] [address] [id number] [place] [address] Mar, [facility] [place] [facility] [address] [id number] [place] [address] Mar, [facility] [place] [facility] [address] [id number] [place] [address] Mar, [facility] [place] [facility] [address] [id number] [place] [address] Mar, [facility] [place] [facility] [address] [id number] [place] [address] Feb, [facility] [place] [facility] [address] [id number] [place] [address] 40[address] Dec, [facility] [place] [facility] [address] [id number] [place] [address]46 Nov, [facility] [place] [facility] [address] [id number] [place] [address]- [address]46 Oct, [facility] [place] [facility] [address] [id number] [place] [address]- [address] Sep, [facility] [place] [facility] [address] [id number] [place] [address]46 Aug, [facility] [place] [facility] [address] [id number] [place] [address] Aug, [facility] [address] [facility] [id number], [place] [address] Aug, [facility] [address] [id number], [place] [address] Jul, [facility] [address] [id number], [place] [address] Jul, [facility] [address] [id number], [place] [address] Feb, [facility] [address] [facility] [id number], [place] [address] Sep, IMMUNIZATIONS No Known Immunizations SOCIAL HISTORY Never Assessed REASON FOR VISIT Phone Call PLAN OF CARE VITAL SIGNS MEDICATIONS Unknown Medications RESULTS No Results PROCEDURES No Known procedures INSTRUCTIONS MEDICATIONS ADMINISTERED No Known Medications MEDICAL (GENERAL) HISTORY Type Description Date Medical History hypertension Medical History angioedema Surgical History cartoid Surgical History Heart cath 01/2016 Surgical History Heart Cath 06/24 Hospitalization History Allergic reaction to Amoxil. 10/2015
--- OUTSIDE RECORDS SUMMARY | 2018-04-22 15:10 | XMS REPORT ---
Author Author MIKA DAVE Organization [facility] Address [address] [place] [address] Care Team Providers Care Systems Security Analyst Name Role Phone MIKA DAVE Unavailable PROBLEMS Type Condition ICD9-CM Code SPS97-SH Code Onset Dates Condition Status SNOMED Code Problem Benign prostatic hyperplasia with lower urinary tract symptoms, symptom details unspecified N40.1 Active 581060430 Problem Obstructive sleep apnea G47.33 Active 68217264 Problem Angioedema T78.3XXA Active 70250756 Problem Low back pain M54.5 Active 590318583 Problem Essential hypertension I10 Active 85648720 ALLERGIES No Information ENCOUNTERS Encounter Location Date Diagnosis [place] [address] [address]- [address] Feb, Angioedema, subsequent encounter T78.3XXD [place] [address] 19386- 5530 January, [place] [address] 14180- 7119 January, [facility] [address] [place] [id number] [place] [address] 26666- 7620 Nov, [facility] [address] 47603- 8007 Nov, [facility] [address] 82776- 8849 Oct, Essential hypertension I10 ; Angioedema T78.3XXA and Benign prostatic hyperplasia with lower urinary tract symptoms, symptom details unspecified N40.1 [place] [address] [place] [id number] [place] [address] 81797- 7418 Oct, [facility] [address] [place] [id number] Sep, Dental caries K02.9 [facility] [address] [id number] [place] [address] 65222- 1469 Jul, [facility] [id number] [place] [address] [id number] 14 Jul, 2017 Dental examination Z01.20 [facility] [address] 35577- 9663 03 Jul, 2017 [facility] [address] [address] [id number] [place] [address] 71082- 3485 Jun, [facility] [address] 82821- 6697 May, Bronchitis J40 [facility] [address] 65226- 7417 Apr, Obstructive sleep apnea G47.33 and Angioedema T78.3XXA [facility] [address] [place] [address] [id number] [place] [address] 27826- 4949 January, Low back pain M54.5 [facility] [address] 15542- 5393 18 Dec, 2016 Low back pain M54.5 [facility] [address] [place] [id number] [place] [address] 84249- 3790 10 Dec, 2016 Essential hypertension I10 [facility] [address] [place] [id number] [place] [address] 17910- 5243 07 Dec, 2016 [facility] [address] [place] [id number] [place] [address] 09439 -5888 16 Jul, 2016 Angioedema T78.3XXA [facility] [address] [place] [id number] [place] [address] 01340- 5503 14 Jul, 2016 [facility] [address] [place] [id number] [place] [address] 27844- 3142 08 Jul, 2016 Angioedema T78.3XXA [facility] [address] [place] [address] [id number] [place] [address] 82367- 2522 Jul, [facility] [address] 85402 -9929 May, Acute pain of right knee M25.561 [facility] [address] [place] [id number] [place] [address] 41083 -0644 May, Bug bite, initial encounter W57.XXXA [facility] [address] 25462- 4341 January, Sleep apnea, unspecified type G47.30 [place] [address] 96669- 3116 January, Sleep apnea, unspecified type G47.30 [place] [address] [place] [id number] [place] [address] 70308- 7765 January, [place] [address] 75013- 6276 January, [facility] [address] [place] [id number] [place] [address] 36191- 7079 Dec, [place] [address] [place] [id number] [place] [address] 88946- 0858 Nov, Angioedema T78.3XXA [place] [address] [place] [id number] [place] [address] 35070- 7459 Oct, [facility] [address] [place] [id number] [place] [address] 86559- 7471 Oct, [facility] [address] [place] [id number] [place] [address] 64954- 7195 Sep, [place] [address] [place] [id number] [place] [address] 26839- 9230 Sep, Angioedema T78.3XXA [facility] [address] [place] [id number] [place] [address] 14680- 7035 Sep, [place] [address] [address] 2546 Aug, Angioedema T78.3XXA [facility] [address] [id number] [place] [address] 2546 Aug, [facility] [address] [place] [address] 2546 May, 2014 [facility] [address] [place] [id number] [place] [address], [place] [address] 2546 28 May, 2014 [facility] [id number] [place] [address], [place] [address] 2546 22 May, 2014 Angioedema 995.1 [facility] [address] [place] [address] 2546 18 May, 2014 [facility] [address] [place] [id number] [place] [address] 89274 2546 May, 2014 [facility] [address] [address] 2541 08 May, 2014 Angioedema 995.1 [facility] [address] [place] [address] 2546 Mar, 2014 [facility] [address] [address] 2546 Mar, 2014 [facility] [address] [address] 2546 Mar, 2014 [facility] [address] [address] 2546 Mar, 2014 [facility] [address] [address] 2546 Feb, [facility] [address] [place] [address] 2546 Feb, [facility] [address] [address] 2546 30 Dec, 2014 [facility] [place] [facility] [address] [id number] [place] [address]- 0212 14 Dec, 2014 [facility] [place] [facility] [address] [id number] [place] [address]- 1342 13 Dec, 2014 [facility] [place] [facility] [address] [id number] [place] [address]- 0071 Oct, [facility] [place] [facility] [address] [id number] [place] [address]- 0297 Oct, [facility] [place] [facility] [address] [id number] [place] [address]- 8090 Sep, [facility] [place] [facility] [address] [id number] [place] [address]- 1295 Sep, [facility] [place] [facility] [address] [id number] [place] [address]- 4947 Aug, [facility] [place] [facility] [address] [id number] [place] [address]- 3269 Aug, [facility] [place] [facility] [address] [id number] [place] [address]- 5910 Aug, [facility] [place] [facility] [address] [id number] [place] [address]- 8883 Aug, [facility] [place] [facility] [address] [id number] [place] [address]- 1404 Aug, [facility] [place] [facility] [address] [id number] [place] [address]- 9300 Jul, [facility] [place] [facility] [address] [id number] [place] [address]- 9683 Jul, [facility] [place] [facility] [address] [id number] [place] [address]- 9591 Jul, [facility] [place] [facility] [address] [id number] [place] [address]- 1028 Jul, [facility] [place] [facility] [address] [id number] [place] [address]- 6726 Jun, [facility] [place] [facility] [address] [id number] [place] [address]- 4726 Jun, [facility] [place] [facility] [address] [id number] [place] [address]- 2175 Jun, [facility] [place] [facility] [address] [id number] [place] [address]- 0955 Jun, [facility] [place] [facility] [address] [id number] [place] [address]- 2908 May, [facility] [place] [facility] [address] [id number] [place] [address]- 5892 12 May, 2014 [facility] [place] [facility] [address] [id number] [place] [address]- 0128 08 May, 2014 [facility] [place] [facility] [address] [id number] [place] [address]- 7612 May, [facility] [place] [facility] [address] [id number] [place] [address]- 6761 05 May, 2014 [facility] [place] [facility] [address] [id number] [place] [address]- 2121 05 May, 2014 [facility] [place] [facility] [address] [id number] [place] [address]- 8889 Mar, [facility] [place] [facility] [address] [id number] [place] [address]- 3350 Mar, [facility] [place] [facility] [address] [id number] [place] [address]- 8136 Feb, [facility] [place] [facility] [address] [id number] [place] [address]- 2692 Feb, [facility] [place] [facility] [address] [id number] [place] [address]- 8620 Feb, [facility] [place] [facility] [address] [id number] [place] [address]- 3709 Feb, [facility] [place] [facility] [address] [id number] [place] [address]- 2527 January, [facility] [address] [id number] [place] 8341 January, [facility] [address] [id number] [place] [address]- 1190 January, [facility] [address] [id number] [place] [address]- 3322 January, [facility] [address] [id number] [place] [address]- 3809 January, [facility] [address] [id number] [place] 6063 January, [facility] [address] [id number] [place] [address]- 7245 January, [facility] [address] [id number] [place] [address]- 2344 January, [facility] [address] [id number] [place] [address]- 5187 Dec, [facility] [address] [id number] [place] [address]- 5129 Dec, [facility] [address] [id number] [place] [address]- 4084 Dec, [facility] [place] [facility] [address] [id number] [place] [address]- 9554 Dec, [facility] [address] [id number] [place] [address]- 9034 Dec, [facility] [place] [facility] [address] [id number] [place] [address]- 0831 Dec, [facility] [place] [facility] [address] [id number] [place] [address]- 4665 Dec, [facility] [place] [facility] [address] [id number] [place] [address]- 5069 Dec, [facility] [place] [facility] [address] [id number] [place] [address]- 1472 Dec, [facility] [place] [facility] [address] [id number] [place] [address]- 2191 Dec, [facility] [place] [facility] [address] [id number] [place] [address]- 1120 Dec, [facility] [place] [facility] [address] [id number] [place] [address]- 3880 Dec, [facility] [place] [facility] [address] [id number] [place] [address]- 8193 Dec, [facility] [place] [facility] [address] [id number] [place] [address]- 3201 Dec, [facility] [place] [facility] [address] [id number] [place] [address]- 2271 Dec, [facility] [place] [facility] [address] [id number] [place] [address]- 6373 Dec, [facility] [place] [facility] [address] [id number] [place] [address]- 9671 Nov, [facility] [place] [facility] [address] [id number] [place] [address]- 0995 Nov, [facility] [place] [facility] [address] [id number] [place] [address]- 0183 Nov, [facility] [place] [facility] [address] [id number] [place] [address]- 7227 Nov, [facility] [place] [facility] [address] [id number] [place] [address]- 7596 Nov, [facility] [place] [facility] [address] [id number] [place] [address]- 7199 Nov, [facility] [place] [facility] [address] [id number] [place] [address]- 0318 05 Nov, 2013 [facility] [place] [facility] [address] [id number] [place] [address]- 3869 Nov, [facility] [place] [facility] [address] [id number] [place] [address]- 1966 Oct, [facility] [place] [facility] [address] [id number] [place] [address]- 7436 Oct, [facility] [place] [facility] [address] [facility] [id number] [place] [address]- 2976 Oct, [facility] [place] [facility] [address] [id number] [place] [address]- 0451 Oct, [facility] [place] [facility] [address] [id number] [place] [address]- 2986 Oct, [facility] [place] [facility] [address] [facility] [id number] [place] [address]- 3410 Oct, [facility] [place] [facility] [address] [place] [id number] [place] [address]- 7757 Oct, [facility] [place] [facility] [address] [facility] [id number] [place] [address]- 9960 Oct, [facility] [place] [facility] [address] [facility] [id number] [place] [address]- 2786 Oct, [facility] [place] [facility] [address] [facility] [id number] [place] [address]- 8956 Oct, [facility] [place] [facility] [address] [facility] [id number] [place] [address]- 6230 Oct, [facility] [place] [facility] [address] [facility] [id number] [place] [address]- 2541 Oct, [facility] [place] [facility] [address] [facility] [id number] [place] [address]- 8336 Sep, [facility] [place] [facility] [address] [facility] [id number] [place] [address]- 4553 Sep, [facility] [place] [facility] [address] [facility] [id number] [place] [address]- 1027 Sep, [facility] [place] [facility] [address] [id number] [place] [address]- 1313 Sep, [facility] [place] [facility] [address] [id number] [place] [address]- 4477 Sep, [facility] [place] [facility] [address] [id number] [place] [address]- 8967 Sep, [facility] [place] [facility] [address] [id number] [place] [address]- 8793 Sep, [facility] [place] [facility] [address] [id number] [place] [address]- 7478 Sep, [facility] [place] [facility] [address] [id number] [place] [address]- 7516 Sep, [facility] [place] [facility] [address] [id number] [place] [address]- 0656 Sep, [facility] [place] [facility] [address] [id number] [place] [address]- 9219 Aug, [facility] [place] [facility] [address] [id number] [place] [address]- 3141 30 Aug, 2013 [facility] [place] [facility] [address] [id number] [place] [address]- 4736 Aug, [facility] [place] [facility] [address] [id number] [place] [address]- 7563 Aug, [facility] [place] [facility] [address] [id number], [place] [address]- 2090 Aug, [facility] [place] [facility] [address] [id number] [place] [address]- 6347 Aug, [facility] [place] [facility] [address] [id number] [place] [address]- 5502 14 Aug, 2013 [facility] [place] [facility] [address] [id number] [place] [address]- 3080 14 Aug, 2013 [facility] [place] [facility] [address] [id number] [place] [address]- 0488 Jul, [facility] [place] [facility] [address] [id number] [place] [address]- 6692 Jul, [facility] [place] [facility] [address] [id number] [place] [address]- 1776 Jul, [facility] [place] [facility] [address] [id number] [place] [address]- 6237 Jul, [facility] [place] [facility] [address] [id number] [place] [address]- 1908 Jul, [facility] [place] [facility] [address] [id number] [place] [address]- 1761 Jul, [facility] [place] [facility] [address] [id number] [place] [address]- 2200 Jul, [facility] [place] [facility] [address] [id number] [place] [address]- 8014 Jul, [facility] [place] [facility] [address] [id number] [place] [address]- 2672 Jun, [facility] [place] [facility] [address] [id number] [place] [address]- 0661 Jun, [facility] [place] [facility] [address] [id number] [place] [address]- 7394 Jun, [facility] [place] [facility] [address] [id number] [place] [address]- 0476 Jun, [facility] [place] [facility] [address] [id number], [place] [address]- 0432 Jun, [facility] [place] [facility] [address] [id number] [place] [address]- 3100 24 Jun, 2013 [facility] [place] [facility] [address] [id number] [place] [address]- 8524 Jun, [facility] [place] [facility] [address] [id number], [place] [address]- 0869 19 Jun, 2013 [facility] [place] [facility] [address] [id number] [place] [address]- 4845 Jun, [facility] [place] [facility] [address] [id number] [place] [address]- 7253 Jun, [facility] [place] [facility] [address] [id number] [place] [address]- 2629 15 Jun, 2013 [facility] [place] [facility] [address] [id number] [place] [address]- 1503 Jun, [facility] [place] [facility] [address] [id number] [place] [address]- 0212 Jun, [facility] [place] [facility] [address] [id number] [place] [address]- 4365 Jun, [facility] [place] [facility] [address] [id number] [place] [address]- 8692 Jun, [facility] [place] [facility] [address] [id number] [place] [address]- 4421 Jun, [facility] [place] [facility] [address] [id number] [place] [address]- 0463 Jun, [facility] [place] [facility] [address] [id number] [place] [address]- 5789 Jun, [facility] [place] [facility] [address] [id number] [place] [address]- 6609 06 May, 2013 [facility] [place] [facility] [address] [id number] [place] [address]- 4056 04 May, 2013 [facility] [place] [facility] [address] [id number] [place] [address]- 1321 May, [facility] [place] [facility] [address] [id number] [place] [address]- 8638 Apr, [facility] [place] [facility] [address] [id number] [place] [address]- 7327 Apr, [facility] [place] [facility] [address] [id number] [place] [address]- 1666 Apr, [facility] [place] [facility] [address] [id number] [place] [address]- 1383 Apr, [facility] [place] [facility] [address] [id number] [place] [address]- 2376 Apr, [facility] [place] [facility] [address] [id number] [place] [address]- 0911 Apr, [facility] [place] [facility] [address] [id number] [place] [address]- 5986 Mar, [facility] [place] [facility] [address] [id number] [place] [address]- 5995 Mar, [facility] [place] [facility] [address] [id number] [place] [address]- 9169 Mar, [facility] [place] [facility] [address] [id number] [place] [address]- 0106 Feb, [facility] [place] [facility] [address] [id number] [place] [address]- 9409 Feb, [facility] [place] [facility] [address] [id number] [place] [address]- 5940 Feb, [facility] [place] [facility] [address] [id number] [place] [address]- 0346 Feb, [facility] [place] [facility] [address] [id number] [place] [address]- 5370 January, [facility] [place] [facility] [address] [id number] [place] [address]- 0490 January, [facility] [place] [facility] [address] [id number] [place] [address]- 8908 Dec, [facility] [place] [facility] [address] [id number] [place] [address]- 6442 Dec, [facility] [place] [facility] [address] [id number] [place] [address]- 9410 Dec, [facility] [place] [facility] [address] [id number] [place] [address]- 2546 08 Dec, 2012 [facility] [address] [id number] [place] [address]- 1986 Dec, [facility] [address] [id number] [place] [address] Nov, [facility] [address] [id number] [place] [address] Nov, [facility] [address] [id number] [place] [address] Nov, [facility] [address] [id number] [place] [address] Nov, [facility] [address] [id number] [place] [address] Nov, [facility] [address] [id number] [place] [address] Nov, [facility] [address] [id number] [place] [address] Nov, [facility] [address] [id number] [place] [address] Oct, [facility] [address] [id number] [place] [address] Oct, [facility] [address] [id number] [place] [address] Oct, [facility] [address] [id number] [place] [address] Oct, [facility] [address] [id number] [place] [address] Sep, [facility] [address] [id number] [place] [address] Sep, [facility] [address] [id number] [place] [address] Sep, [facility] [place] [facility] [address] [id number] [place] [address] Aug, [facility] [place] [facility] [address] [id number] [place] [address] Aug, [facility] [place] [facility] [address] [id number] [place] [address] Aug, [facility] [place] [facility] [address] [id number] [place] [address] Aug, [facility] [place] [facility] [address] [id number] [place] [address] Aug, [facility] [place] [facility] [address] [id number] [place] [address] Aug, [facility] [place] [facility] [address] [id number] [place] [address] Jul, [facility] [place] [facility] [address] [id number] [place] [address] Jul, [facility] [place] [facility] [address] [id number] [place] [address] Jul, [facility] [place] [facility] [address] [id number] [place] [address] Jul, [facility] [place] [facility] [address] [id number], [place] [address] Jun, [facility] [place] [facility] [address] [id number], [place] [address] Jun, [facility] [place] [facility] [address] [id number] [place] [address] Apr, [facility] [place] [facility] [address] [id number], [place] [address] Apr, [facility] [place] [facility] [address] [id number] [place] [address] Apr, [facility] [place] [facility] [address] [id number] [place] [address] Apr, [facility] [place] [facility] [address] [id number] [place] [address] Mar, [facility] [place] [facility] [address] [id number] [place] [address] Mar, [facility] [place] [facility] [address] [id number] [place] [address] Mar, [facility] [place] [facility] [address] [id number] [place] [address] Mar, [facility] [place] [facility] [address] [id number] [place] [address] Mar, [facility] [place] [facility] [address] [id number] [place] [address] Mar, [facility] [place] [facility] [address] [id number] [place] [address] Mar, [facility] [place] [facility] [address] [id number] [place] [address] Mar, [facility] [place] [facility] [address] [id number] [place] [address] Feb, [facility] [place] [facility] [address] [id number] [place] [address] Dec, [facility] [place] [facility] [address] [id number] [place] [address] Nov, [facility] [place] [facility] [address] [id number] [place] [address] Oct, [facility] [place] [facility] [address] [id number] [place] [address] Sep, [facility] [place] [facility] [address] [id number] [place] [address] Aug, [facility] [place] [facility] [address] [id number] [place] [address] Aug, [facility] [address] [facility] [id number], [place] [address] Aug, [facility] [address] [facility] [id number], [place] [address] Jul, [facility] [address] [facility] [id number], [place] [address] Jul, [facility] [address] [id number], [place] [address] Feb, [facility] [address] [facility] [id number], [place] [address] Sep, IMMUNIZATIONS No Known Immunizations SOCIAL HISTORY Never Assessed REASON FOR VISIT controlled medication refill PLAN OF CARE VITAL SIGNS MEDICATIONS Medication Instructions Dosage Frequency Start Date End Date Duration Status Hydrocodone-Acetaminophen 5-325 MG Orally 2 times a day 1 tablet as needed 12h January, Active RESULTS No Results PROCEDURES No Known procedures INSTRUCTIONS MEDICATIONS ADMINISTERED No Known Medications MEDICAL (GENERAL) HISTORY Type Description Date Medical History hypertension Medical History angioedema Surgical History cartoid Surgical History Heart cath 01/2016 Surgical History Heart Cath 06/24 Hospitalization History Allergic reaction to Amoxil. 10/2015
--- OUTSIDE RECORDS SUMMARY | 2018-04-22 15:10 | XMS REPORT ---
Author Author MIKA DAVE Organization [facility] Address [address] [place] [address] Care Team Providers Care Best Second Jobs Name Role Phone MIKA DAVE Unavailable PROBLEMS Type Condition ICD9-CM Code POY21-CX Code Onset Dates Condition Status SNOMED Code Problem Benign prostatic hyperplasia with lower urinary tract symptoms, symptom details unspecified N40.1 Active 738261476 Problem Obstructive sleep apnea G47.33 Active 03594535 Problem Angioedema T78.3XXA Active 33410540 Problem Low back pain M54.5 Active 189421213 Problem Essential hypertension I10 Active [id number] ALLERGIES No Information ENCOUNTERS Encounter Location Date Diagnosis [place] [address] [address] Feb, Angioedema, subsequent encounter T78.3XXD [place] [address] [address]- [address] January, [place] [address] [address]- 6844 January, [facility] [address] [place] [id number] [place] [address] 82189- 1900 Nov, [facility] [address] [address]28- 6347 Nov, [facility] [address] [place] [id number] [place] [address] 34353- 6730 Oct, Essential hypertension I10 ; Angioedema T78.3XXA and Benign prostatic hyperplasia with lower urinary tract symptoms, symptom details unspecified N40.1 [place] [address] [place] [id number] [place] [address] 27459- 5483 Oct, [facility] [address] [place] [id number] Sep, Dental caries K02.9 [facility] [address] [place] [id number] [place] [address] 76494- 9620 Jul, [facility] [address] [place] [id number] [place] [address] [id number] 14 Jul, 2017 Dental examination Z01.20 [facility] [address] [address]- 2635 03 Jul, 2017 [facility] [address] [place] [id number] [place] [address] 38351- 0791 Jun, [facility] [address] 72696- 6263 May, Bronchitis J40 [facility] [address] 92549- 4694 Apr, Obstructive sleep apnea G47.33 and Angioedema T78.3XXA [facility] [address] [place] [id number] [place] [address] 42542- 8807 January, Low back pain M54.5 [facility] [address] 24849- 5166 18 Dec, 2016 Low back pain M54.5 [facility] [address] [place] [id number] [place] [address] 14457- 6921 10 Dec, 2016 Essential hypertension I10 [facility] [address] [place] [id number] [place] [address] 70741- 6489 07 Dec, 2016 [facility] [address] [place] [id number] [place] [address] 97507 -1695 16 Jul, 2016 Angioedema T78.3XXA [facility] [address] [place] [id number] [place] [address] 69453- 1897 14 Jul, 2016 [facility] [address] [place] [id number] [place] [address] 00882- 5750 08 Jul, 2016 Angioedema T78.3XXA [facility] [address] [place] [id number] [place] [address] 01481- 1937 Jul, [facility] [address] 6[address] -2909 May, Acute pain of right knee M25.561 [facility] [address] [place] [id number] [place] [address] 55692 -0878 May, Bug bite, initial encounter W57.XXXA [facility] [address] 48335- 3329 January, Sleep apnea, unspecified type G47.30 [place] [address] 79913- 2292 January, Sleep apnea, unspecified type G47.30 [place] [address] [place] [id number] [place] [address] 20112- 5824 January, [place] [address] 15030- 5571 January, [facility] [address] [place] [id number] [place] [address] 14781- 2847 Dec, [place] [address] [place] [id number] [place] [address] 49507- 4630 Nov, Angioedema T78.3XXA [place] [address] [place] [id number] [place] [address] 77703- 5312 Oct, [facility] [address] [place] [id number] [place] [address] 06183- 1076 Oct, [facility] [address] [place] [id number] [place] [address] 73830- 5699 Sep, [place] [address] [place] [id number] [place] [address] 42522- 1057 Sep, Angioedema T78.3XXA [facility] [address] [place] [id number] [place] [address] 31962- 5493 Sep, [place] [address] [address] 2546 Aug, Angioedema T78.3XXA [facility] [address] [place] [id number] [place] [address] 2546 Aug, [facility] [id number] [place] [address] 2546 May, 2014 [facility] [address] [place] [id number] [place] [address], [place] [address] 2546 28 May, 2014 [facility] [id number] [place] [address], [place] [address] 2546 22 May, 2014 Angioedema 995.1 [facility] [id number] [place] [address] 2546 18 May, 2014 [facility] [address] [place] [id number] [place] [address] 25475 2546 May, 2014 [facility] [id number] [address] 2547 08 May, 2014 Angioedema 995.1 [facility] [id number] [place] [address] 2546 Mar, 2014 [facility] [id number] [address] 2546 Mar, 2014 [facility] [id number] [address] 2546 Mar, 2014 [facility] [address] [address] 2546 Mar, 2014 [facility] [address] [address] 2546 Feb, [facility] [address] [place] [address] 2546 Feb, [facility] [address] [address] 2546 30 Dec, 2014 [facility] [place] [facility] [address] [id number] [place] [address]- 2158 14 Dec, 2014 [facility] [place] [facility] [address] [id number] [place] [address]- 0919 13 Dec, 2014 [facility] [place] [facility] [address] [id number] [place] [address]- 9254 Oct, [facility] [place] [facility] [address] [id number] [place] [address]- 5220 Oct, [facility] [place] [facility] [address] [id number] [place] [address]- 0780 Sep, [facility] [place] [facility] [address] [id number] [place] [address]- 9640 Sep, [facility] [place] [facility] [address] [id number] [place] [address]- 9967 Aug, [facility] [place] [facility] [address] [id number] [place] [address]- 5805 Aug, [facility] [place] [facility] [address] [id number] [place] [address]- 3953 Aug, [facility] [place] [facility] [address] [id number] [place] [address]- 4726 Aug, [facility] [place] [facility] [address] [id number] [place] [address]- 8518 Aug, [facility] [place] [facility] [address] [id number] [place] [address]- 2144 Jul, [facility] [place] [facility] [address] [id number] [place] [address]- 3932 Jul, [facility] [place] [facility] [address] [id number] [place] [address]- 5475 Jul, [facility] [place] [facility] [address] [id number] [place] [address]- 6390 Jul, [facility] [place] [facility] [address] [id number] [place] [address]- 8106 Jun, [facility] [place] [facility] [address] [id number] [place] [address]- 1827 Jun, [facility] [place] [facility] [address] [id number] [place] [address]- 1625 Jun, [facility] [place] [facility] [address] [id number] [place] [address]- 6802 Jun, [facility] [place] [facility] [address] [id number] [place] [address]- 8256 May, [facility] [place] [facility] [address] [id number] [place] [address]- 5708 12 May, 2014 [facility] [place] [facility] [address] [id number] [place] [address]- 8883 08 May, 2014 [facility] [place] [facility] [address] [id number] [place] [address]- 6757 May, [facility] [place] [facility] [address] [id number] [place] [address]- 0702 05 May, 2014 [facility] [place] [facility] [address] [id number] [place] [address]- 4209 05 May, 2014 [facility] [place] [facility] [address] [id number] [place] [address]- 7729 Mar, [facility] [place] [facility] [address] [id number] [place] [address]- 6813 Mar, [facility] [place] [facility] [address] [id number] [place] [address]- 5967 Feb, [facility] [place] [facility] [address] [id number] [place] [address]- 2069 Feb, [facility] [place] [facility] [address] [id number] [place] [address]- 6377 Feb, [facility] [place] [facility] [address] [id number] [place] [address]- 2667 Feb, [facility] [place] [facility] [address] [id number] [place] [address]- 9653 January, [facility] [address] [id number] [place]- 1818 January, [facility] [address] [id number] [place] [address]- 3385 January, [facility] [address] [id number] [place] [address]- 0672 January, [facility] [address] [id number] [place] [address]- 0457 January, [facility] [address] [id number] [place] 4694 January, [facility] [address] [id number] [place] [address]- 8465 January, [facility] [address] [id number] [place] [address]- 7226 January, [facility] [address] [id number] [place] [address]- 1022 Dec, [facility] [address] [id number] [place] [address]- 6600 Dec, [facility] [address] [id number] [place] [address]- 0724 Dec, [facility] [place] [facility] [address] [id number] [place] [address]- 8299 Dec, [facility] [address] [id number] [place] [address]- 8278 Dec, [facility] [place] [facility] [address] [id number] [place] [address]- 3468 Dec, [facility] [place] [facility] [address] [id number] [place] [address]- 7280 Dec, [facility] [place] [facility] [address] [id number] [place] [address]- 6202 Dec, [facility] [place] [facility] [address] [id number] [place] [address]- 0437 Dec, [facility] [place] [facility] [address] [id number] [place] [address]- 5702 Dec, [facility] [place] [facility] [address] [id number] [place] [address]- 1760 Dec, [facility] [place] [facility] [address] [id number] [place] [address]- 3322 Dec, [facility] [place] [facility] [address] [id number] [place] [address]- 6627 Dec, [facility] [place] [facility] [address] [id number] [place] [address]- 5547 Dec, [facility] [place] [facility] [address] [id number] [place] [address]- 5007 Dec, [facility] [place] [facility] [address] [id number] [place] [address]- 0169 Dec, [facility] [place] [facility] [address] [id number] [place] [address]- 0930 Nov, [facility] [place] [facility] [address] [id number] [place] [address]- 3198 Nov, [facility] [place] [facility] [address] [id number] [place] [address]- 6729 Nov, [facility] [place] [facility] [address] [id number] [place] [address]- 6928 Nov, [facility] [place] [facility] [address] [id number] [place] [address]- 1840 Nov, [facility] [place] [facility] [address] [id number] [place] [address]- 1637 Nov, [facility] [place] [facility] [address] [id number] [place] [address]- 7990 05 Nov, 2013 [facility] [place] [facility] [address] [id number] [place] [address]- 0294 Nov, [facility] [place] [facility] [address] [id number] [place] [address]- 2416 Oct, [facility] [place] [facility] [address] [id number] [place] [address]- 6986 Oct, [facility] [place] [facility] [address] [facility] [id number] [place] [address]- 5566 Oct, [facility] [place] [facility] [address] [id number] [place] [address]- 2301 Oct, [facility] [place] [facility] [address] [id number] [place] [address]- 3742 Oct, [facility] [place] [facility] [address] [facility] [id number] [place] [address]- 1302 Oct, [facility] [place] [facility] [address] [place] [id number] [place] [address]- 8816 Oct, [facility] [place] [facility] [address] [facility] [id number] [place] [address]- 0696 Oct, [facility] [place] [facility] [address] [facility] [id number] [place] [address]- 2959 Oct, [facility] [place] [facility] [address] [facility] [id number] [place] [address]- 8603 Oct, [facility] [place] [facility] [address] [facility] [id number] [place] [address]- 3894 Oct, [facility] [place] [facility] [address] [facility] [id number] [place] [address]- 2541 Oct, [facility] [place] [facility] [address] [facility] [id number] [place] [address]- 4166 Sep, [facility] [place] [facility] [address] [facility] [id number] [place] [address]- 5463 Sep, [facility] [place] [facility] [address] [facility] [id number] [place] [address]- 2075 Sep, [facility] [place] [facility] [address] [id number] [place] [address]- 4439 Sep, [facility] [place] [facility] [address] [id number] [place] [address]- 2436 Sep, [facility] [place] [facility] [address] [id number] [place] [address]- 6984 Sep, [facility] [place] [facility] [address] [id number] [place] [address]- 9473 Sep, [facility] [place] [facility] [address] [id number] [place] [address]- 3486 Sep, [facility] [place] [facility] [address] [id number] [place] [address]- 7898 Sep, [facility] [place] [facility] [address] [id number] [place] [address]- 5516 Sep, [facility] [place] [facility] [address] [id number] [place] [address]- 3990 Aug, [facility] [place] [facility] [address] [id number] [place] [address]- 4308 30 Aug, 2013 [facility] [place] [facility] [address] [id number] [place] [address]- 5884 Aug, [facility] [place] [facility] [address] [id number] [place] [address]- 3942 Aug, [facility] [place] [facility] [address] [id number] [address]- 0913 Aug, [facility] [place] [facility] [address] [id number] [place] [address]- 2914 Aug, [facility] [place] [facility] [address] [id number] [place] [address]- 1408 14 Aug, 2013 [facility] [place] [facility] [address] [id number] [place] [address]- 2265 14 Aug, 2013 [facility] [place] [facility] [address] [id number] [place] [address]- 7536 Jul, [facility] [place] [facility] [address] [id number] [place] [address]- 6195 Jul, [facility] [place] [facility] [address] [id number] [place] [address]- 9897 Jul, [facility] [place] [facility] [address] [id number] [place] [address]- 3442 Jul, [facility] [place] [facility] [address] [id number] [place] [address]- 4766 Jul, [facility] [place] [facility] [address] [id number] [place] [address]- 3008 Jul, [facility] [place] [facility] [address] [id number] [place] [address]- 4331 Jul, [facility] [place] [facility] [address] [id number] [place] [address]- 4394 Jul, [facility] [place] [facility] [address] [id number] [place] [address]- 1117 Jun, [facility] [place] [facility] [address] [id number] [place] [address]- 0517 Jun, [facility] [place] [facility] [address] [id number] [place] [address]- 7811 Jun, [facility] [place] [facility] [address] [id number] [place] [address]- 5785 Jun, [facility] [place] [facility] [address] [id number] [address]- 9967 Jun, [facility] [place] [facility] [address] [id number] [place] [address]- 0847 24 Jun, 2013 [facility] [place] [facility] [address] [id number] [place] [address]- 3909 Jun, [facility] [place] [facility] [address] [id number] [address]- 0127 19 Jun, 2013 [facility] [place] [facility] [address] [id number] [place] [address]- 3130 Jun, [facility] [place] [facility] [address] [id number] [place] [address]- 3466 Jun, [facility] [place] [facility] [address] [id number] [place] [address]- 1562 15 Jun, 2013 [facility] [place] [facility] [address] [id number] [place] [address]- 1360 Jun, [facility] [place] [facility] [address] [id number] [place] [address]- 2544 Jun, [facility] [place] [facility] [address] [id number] [place] [address]- 7469 Jun, [facility] [place] [facility] [address] [id number] [place] [address]- 6716 Jun, [facility] [place] [facility] [address] [id number] [place] [address]- 7267 Jun, [facility] [place] [facility] [address] [id number] [place] [address]- 9293 Jun, [facility] [place] [facility] [address] [id number] [place] [address]- 8541 Jun, [facility] [place] [facility] [address] [id number] [place] [address]- 3108 06 May, 2013 [facility] [place] [facility] [address] [id number] [place] [address]- 2713 04 May, 2013 [facility] [place] [facility] [address] [id number] [place] [address]- 2737 May, [facility] [place] [facility] [address] [id number] [place] [address]- 0690 Apr, [facility] [place] [facility] [address] [id number] [place] [address]- 8650 Apr, [facility] [place] [facility] [address] [id number] [place] [address]- 1376 Apr, [facility] [place] [facility] [address] [id number] [place] [address]- 3935 Apr, [facility] [place] [facility] [address] [id number] [place] [address]- 5420 Apr, [facility] [place] [facility] [address] [id number] [place] [address]- 9202 Apr, [facility] [place] [facility] [address] [id number] [place] [address]- 9825 Mar, [facility] [place] [facility] [address] [id number] [place] [address]- 1393 Mar, [facility] [place] [facility] [address] [id number] [place] [address] Mar, [facility] [place] [facility] [address] [id number] [place] [address] Feb, [facility] [place] [facility] [address] [id number] [place] [address] Feb, [facility] [place] [facility] [address] [id number] [place] [address] Feb, [facility] [place] [facility] [address] [id number] [place] [address] Feb, [facility] [place] [facility] [address] [id number] [place] [address] January, [facility] [place] [facility] [address] [id number] [place] [address] January, [facility] [place] [facility] [address] [id number] [place] [address] Dec, [facility] [place] [facility] [address] [id number] [place] [address] Dec, [facility] [place] [facility] [address] [id number] [place] [address] Dec, [facility] [place] [facility] [address] [id number] [place] [address] 08 Dec, 2012 [facility] [address] [id number] [place] [address] Dec, [facility] [address] [id number] [place] [address] Nov, [facility] [address] [id number] [place] [address] 25[address] Nov, [facility] [address] [id number] [place] [address] Nov, [facility] [address] [id number] [place] [address] Nov, [facility] [address] [id number] [place] [address]46 Nov, [facility] [address] [id number] [place] [address] 2546 Nov, [facility] [address] [id number] [place] [address] Nov, [facility] [address] [id number] [place] [address] Oct, [facility] [address] [id number] [place] [address] Oct, [facility] [address] [id number] [place] [address] 2546 Oct, [facility] [address] [id number] [place] [address]46 Oct, [facility] [address] [id number] [place] [address] Sep, [facility] [address] [id number] [place] [address] Sep, [facility] [address] [id number] [place] [address] Sep, [facility] [place] [facility] [address] [id number] [place] [address]47 Aug, [facility] [place] [facility] [address] [id number] [place] [address] Aug, [facility] [place] [facility] [address] [id number] [place] [address]29 Aug, [facility] [place] [facility] [address] [id number] [place] [address] Aug, [facility] [place] [facility] [address] [id number] [place] [address] Aug, [facility] [place] [facility] [address] [id number] [place] [address] Aug, [facility] [place] [facility] [address] [id number] [place] [address] 9066 Jul, [facility] [place] [facility] [address] [id number] [place] [address] Jul, [facility] [place] [facility] [address] [id number] [place] [address] 1229 Jul, [facility] [place] [facility] [address] [id number] [place] [address] Jul, [facility] [place] [facility] [address] [id number] [address] Jun, [facility] [place] [facility] [address] [id number] [address] Jun, [facility] [place] [facility] [address] [id number] [place] [address] Apr, [facility] [place] [facility] [address] [id number] [address] Apr, [facility] [place] [facility] [address] [id number] [place] [address]- [address] Apr, [facility] [place] [facility] [address] [id number] [place] [address] Apr, [facility] [place] [facility] [address] [id number] [place] [address] 1396 Mar, [facility] [place] [facility] [address] [id number] [place] [address] Mar, [facility] [place] [facility] [address] [id number] [place] [address]- [address] Mar, [facility] [place] [facility] [address] [id number] [place] [address]- [address] Mar, [facility] [place] [facility] [address] [id number] [place] [address] Mar, [facility] [place] [facility] [address] [id number] [place] [address] 1716 Mar, [facility] [place] [facility] [address] [id number] [place] [address] Mar, [facility] [place] [facility] [address] [id number] [place] [address] Mar, [facility] [place] [facility] [address] [id number] [place] [address]- [address] Feb, [facility] [place] [facility] [address] [id number] [place] [address]- 3076 Dec, [facility] [place] [facility] [address] [id number] [place] [address]- [address]46 Nov, [facility] [place] [facility] [address] [id number] [place] [address]- 2546 Oct, [facility] [place] [facility] [address] [id number] [place] [address] Sep, [facility] [place] [facility] [address] [id number] [place] [address] 2546 Aug, [facility] [place] [facility] [address] [id number] [place] [address]- [address]16 Aug, [facility] [address] [facility] [id number] [address] Aug, [facility] [address] [id number] [address] Jul, [facility] [address] [id number] [id number] Jul, [facility] [address] [id number] [address] Feb, [facility] [address] [facility] [id number] [address] Sep, IMMUNIZATIONS No Known Immunizations SOCIAL HISTORY Never Assessed REASON FOR VISIT Facial swelling PLAN OF CARE VITAL SIGNS MEDICATIONS Unknown Medications RESULTS No Results PROCEDURES No Known procedures INSTRUCTIONS MEDICATIONS ADMINISTERED No Known Medications MEDICAL (GENERAL) HISTORY Type Description Date Medical History hypertension Medical History angioedema Surgical History cartoid Surgical History Heart cath 01/2016 Surgical History Heart Cath 06/24 Hospitalization History Allergic reaction to Amoxil. 10/2015
--- OUTSIDE RECORDS SUMMARY | 2018-04-22 15:11 | XMS REPORT ---
Author Author MIKA DAVE Organization [facility] Address [address] [place] [address] Care Team Providers Care Ultrasound Technol Name Role Phone MIKA DAVE Unavailable PROBLEMS Type Condition ICD9-CM Code TIL20-TY Code Onset Dates Condition Status SNOMED Code Problem Benign prostatic hyperplasia with lower urinary tract symptoms, symptom details unspecified N40.1 Active 511292146 Problem Obstructive sleep apnea G47.33 Active 71730757 Problem Angioedema T78.3XXA Active 59176773 Problem Low back pain M54.5 Active 798461408 Problem Essential hypertension I10 Active 62159432 ALLERGIES No Information ENCOUNTERS Encounter Location Date Diagnosis [place] [address] [address] Feb, Angioedema, subsequent encounter T78.3XXD [place] [address] [address]- 8533 January, [place] [address] [address]- 40[address] January, [facility] [address] [place] [id number] [place] [address] 85198- 8570 Nov, [facility] [address] [address]- 9212 Nov, [facility] [address] 96[address]- 0805 Oct, Essential hypertension I10 ; Angioedema T78.3XXA and Benign prostatic hyperplasia with lower urinary tract symptoms, symptom details unspecified N40.1 [place] [address] [place] [id number] [place] [address] 89438- 8265 Oct, [facility] [address] [place] [id number] Sep, Dental caries K02.9 [facility] [address] [place] [id number] [place] [address] 75662- 4531 Jul, [facility] [address] [id number] [place] [address] [id number] 14 Jul, 2017 Dental examination Z01.20 [facility] [address] 0[address]- 3519 03 Jul, 2017 [facility] [address] [place] [address] [id number] [place] [address] 41802- 3863 Jun, [facility] [address] 09077- 0780 May, Bronchitis J40 [facility] [address] 19698- 2999 Apr, Obstructive sleep apnea G47.33 and Angioedema T78.3XXA [facility] [address] [place] [id number] [place] [address] 64814- 6422 January, Low back pain M54.5 [facility] [address] 59830- 0915 18 Dec, 2016 Low back pain M54.5 [facility] [address] [place] [id number] [place] [address] 82128- 3393 10 Dec, 2016 Essential hypertension I10 [facility] [address] [place] [address] [id number] [place] [address] 69617- 6348 07 Dec, [address] [facility] [address] [address] [id number] [place] [address] 68490 -2855 16 Jul, 2016 Angioedema T78.3XXA [facility] [address] [place] [id number] [place] [address] 74590- 6381 14 Jul, 2016 [facility] [address] [place] [address] [id number] [place] [address] 74559- 1351 08 Jul, 2016 Angioedema T78.3XXA [facility] [address] [place] [address] [id number] [place] [address] 49099- 6937 Jul, [facility] [address] 43333 -2758 May, Acute pain of right knee M25.561 [facility] [address] [place] [id number] [place] [address] 31428 -1903 May, Bug bite, initial encounter W57.XXXA [facility] [address] 97888- 4169 January, Sleep apnea, unspecified type G47.30 [place] [address] 16389- 2319 January, Sleep apnea, unspecified type G47.30 [place] [address] [place] [id number] [place] [address] 60332- 2274 January, [place] [address] 93648- 7649 January, [facility] [address] [place] [id number] [place] [address] 99803- 1998 Dec, [place] [address] [place] [id number] [place] [address] 00439- 1603 Nov, Angioedema T78.3XXA [place] [address] [place] [id number] [place] [address] 76406- 3103 Oct, [facility] [address] [place] [id number] [place] [address] 07331- 6688 Oct, [facility] [address] [place] [id number] [place] [address] 20791- 2654 Sep, [place] [address] [place] [id number] [place] [address] 66666- 7183 Sep, Angioedema T78.3XXA [facility] [address] [place] [id number] [place] [address] 67765- 6430 Sep, [place] [address] [address] 2546 Aug, Angioedema T78.3XXA [facility] [address] [place] [address] [id number] [place] [address] 2546 Aug, [facility] [address] [place] [address] 2546 May, 2014 [facility] [address] [place] [id number] [place] [address], [place] [address] 2546 28 May, 2014 [facility] [address] [place] [address], [place] [address] 2546 22 May, 2014 Angioedema 995.1 [facility] [address] [place] [address] 2546 18 May, 2014 [facility] [address] [place] [address] [id number] [place] [address] 50431 2546 May, 2014 [facility] [address] [address] 254 08 May, 2014 Angioedema 995.1 [facility] [address] [place] [address] 2546 Mar, 2014 [facility] [address] [address] 2546 Mar, 2014 [facility] [address] [address] 2546 Mar, 2014 [facility] [address] [address] 2546 Mar, 2014 [facility] [address] [address] 2546 Feb, [facility] [address] [place] [address] 2546 Feb, [facility] [address] [address] 2546 30 Dec, 2014 [facility] [place] [facility] [address] [id number] [place] [address]- 2827 14 Dec, 2014 [facility] [place] [facility] [address] [id number] [place] [address]- 7424 13 Dec, 2014 [facility] [place] [facility] [address] [id number] [place] [address]- 3252 Oct, [facility] [place] [facility] [address] [id number] [place] [address]- 7814 Oct, [facility] [place] [facility] [address] [id number] [place] [address]- 6134 Sep, [facility] [place] [facility] [address] [id number] [place] [address]- 3857 Sep, [facility] [place] [facility] [address] [id number] [place] [address]- 4869 Aug, [facility] [place] [facility] [address] [id number] [place] [address]- 4352 Aug, [facility] [place] [facility] [address] [id number] [place] [address]- 7248 Aug, [facility] [place] [facility] [address] [id number] [place] [address]- 7749 Aug, [facility] [place] [facility] [address] [id number] [place] [address]- 0501 Aug, [facility] [place] [facility] [address] [id number] [place] [address]- 5315 Jul, [facility] [place] [facility] [address] [id number] [place] [address]- 0171 Jul, [facility] [place] [facility] [address] [id number] [place] [address]- 3845 Jul, [facility] [place] [facility] [address] [id number] [place] [address]- 7154 Jul, [facility] [place] [facility] [address] [id number] [place] [address]- 7716 Jun, [facility] [place] [facility] [address] [id number] [place] [address]- 6305 Jun, [facility] [place] [facility] [address] [id number] [place] [address]- 6974 Jun, [facility] [place] [facility] [address] [id number] [place] [address]- 0243 Jun, [facility] [place] [facility] [address] [id number] [place] [address]- 5606 May, [facility] [place] [facility] [address] [id number] [place] [address]- 6292 12 May, 2014 [facility] [place] [facility] [address] [id number] [place] [address]- 3540 08 May, 2014 [facility] [place] [facility] [address] [id number] [place] [address]- 0435 May, [facility] [place] [facility] [address] [id number] [place] [address]- 9926 05 May, 2014 [facility] [place] [facility] [address] [id number] [place] [address]- 6827 05 May, 2014 [facility] [place] [facility] [address] [id number] [place] [address]- 2427 Mar, [facility] [place] [facility] [address] [id number] [place] [address]- 3485 Mar, [facility] [place] [facility] [address] [id number] [place] [address]- 3007 Feb, [facility] [place] [facility] [address] [id number] [place] [address]- 8082 Feb, [facility] [place] [facility] [address] [id number] [place] [address]- 3642 Feb, [facility] [place] [facility] [address] [id number] [place] [address]- 8594 Feb, [facility] [place] [facility] [address] [id number] [place] [address]- 9369 January, [facility] [address] [id number] [place] [address]276 January, [facility] [address] [id number] [place] [address]- 4884 January, [facility] [address] [id number] [place] [address]- 2821 January, [facility] [address] [id number] [place] [address]- 8807 January, [facility] [address] [id number] [place] 3517 January, [facility] [address] [id number] [place] [address]- 1112 January, [facility] [address] [id number] [place] [address]- 9415 January, [facility] [address] [id number] [place] [address]- 4905 Dec, [facility] [address] [id number] [place] [address]- 5569 Dec, [facility] [address] [id number] [place] [address]- 8421 Dec, [facility] [place] [facility] [address] [id number] [place] [address]- 8177 Dec, [facility] [address] [id number] [place] [address]- 1762 Dec, [facility] [place] [facility] [address] [id number] [place] [address]- 3683 Dec, [facility] [place] [facility] [address] [id number] [place] [address]- 2029 Dec, [facility] [place] [facility] [address] [id number] [place] [address]- 7041 Dec, [facility] [place] [facility] [address] [id number] [place] [address]- 8401 Dec, [facility] [place] [facility] [address] [id number] [place] [address]- 7162 Dec, [facility] [place] [facility] [address] [id number] [place] [address]- 6218 Dec, [facility] [place] [facility] [address] [id number] [place] [address]- 5178 Dec, [facility] [place] [facility] [address] [id number] [place] [address]- 4619 Dec, [facility] [place] [facility] [address] [id number] [place] [address]- 0888 Dec, [facility] [place] [facility] [address] [id number] [place] [address]- 3974 Dec, [facility] [place] [facility] [address] [id number] [place] [address]- 4741 Dec, [facility] [place] [facility] [address] [id number] [place] [address]- 5313 Nov, [facility] [place] [facility] [address] [id number] [place] [address]- 7659 Nov, [facility] [place] [facility] [address] [id number] [place] [address]- 8410 Nov, [facility] [place] [facility] [address] [id number] [place] [address]- 4903 Nov, [facility] [place] [facility] [address] [id number] [place] [address]- 1003 Nov, [facility] [place] [facility] [address] [id number] [place] [address]- 4695 Nov, [facility] [place] [facility] [address] [id number] [place] [address]- 9696 05 Nov, 2013 [facility] [place] [facility] [address] [id number] [place] [address]- 2805 Nov, [facility] [place] [facility] [address] [id number] [place] [address]- 6726 Oct, [facility] [place] [facility] [address] [id number] [place] [address]- 7916 Oct, [facility] [place] [facility] [address] [facility] [id number] [place] [address]- 0366 Oct, [facility] [place] [facility] [address] [id number] [place] [address]- 2119 Oct, [facility] [place] [facility] [address] [id number] [place] [address]- 3341 Oct, [facility] [place] [facility] [address] [facility] [id number] [place] [address]- 5422 Oct, [facility] [place] [facility] [address] [id number] [place] [address]- 0791 Oct, [facility] [place] [facility] [address] [facility] [id number] [place] [address]- 0457 Oct, [facility] [place] [facility] [address] [facility] [id number] [place] [address]- 3081 Oct, [facility] [place] [facility] [address] [facility] [id number] [place] [address]- 5113 Oct, [facility] [place] [facility] [address] [facility] [id number] [place] [address]- 2326 Oct, [facility] [place] [facility] [address] [facility] [id number] [place] [address]- 2542 Oct, [facility] [place] [facility] [address] [facility] [id number] [place] [address]- 8136 Sep, [facility] [place] [facility] [address] [facility] [id number] [place] [address]- 3526 Sep, [facility] [place] [facility] [address] [facility] [id number] [place] [address]- 0554 Sep, [facility] [place] [facility] [address] [id number] [place] [address]- 2011 Sep, [facility] [place] [facility] [address] [id number] [place] [address]- 1276 Sep, [facility] [place] [facility] [address] [id number] [place] [address]- 8702 Sep, [facility] [place] [facility] [address] [id number] [place] [address]- 3189 Sep, [facility] [place] [facility] [address] [id number] [place] [address]- 4548 Sep, [facility] [place] [facility] [address] [id number] [place] [address]- 8925 Sep, [facility] [place] [facility] [address] [id number] [place] [address]- 2519 Sep, [facility] [place] [facility] [address] [id number] [place] [address]- 6532 Aug, [facility] [place] [facility] [address] [id number] [place] [address]- 6481 30 Aug, 2013 [facility] [place] [facility] [address] [id number] [place] [address]- 8269 Aug, [facility] [place] [facility] [address] [id number] [place] [address]- 7627 Aug, [facility] [place] [facility] [address] [id number] [place] [address]- 1336 Aug, [facility] [place] [facility] [address] [id number] [place] [address]- 3591 Aug, [facility] [place] [facility] [address] [id number] [place] [address]- 0394 14 Aug, 2013 [facility] [place] [facility] [address] [id number] [place] [address]- 6728 14 Aug, 2013 [facility] [place] [facility] [address] [id number] [place] [address]- 8989 Jul, [facility] [place] [facility] [address] [id number] [place] [address]- 6756 Jul, [facility] [place] [facility] [address] [id number] [place] [address]- 4021 Jul, [facility] [place] [facility] [address] [id number] [place] [address]- 8004 Jul, [facility] [place] [facility] [address] [id number] [place] [address]- 3511 Jul, [facility] [place] [facility] [address] [id number] [place] [address]- 5521 Jul, [facility] [place] [facility] [address] [id number] [place] [address]- 8968 Jul, [facility] [place] [facility] [address] [id number] [place] [address]- 9222 Jul, [facility] [place] [facility] [address] [id number] [place] [address]- 7182 Jun, [facility] [place] [facility] [address] [id number] [place] [address]- 7293 Jun, [facility] [place] [facility] [address] [id number] [place] [address]- 2047 Jun, [facility] [place] [facility] [address] [id number] [place] [address]- 8298 Jun, [facility] [place] [facility] [address] [id number] [address]- 7235 Jun, [facility] [place] [facility] [address] [id number] [place] [address]- 0298 24 Jun, 2013 [facility] [place] [facility] [address] [id number] [place] [address]- 8621 Jun, [facility] [place] [facility] [address] [id number] [place] [address]- 9476 19 Jun, 2013 [facility] [place] [facility] [address] [id number] [place] [address]- 7248 Jun, [facility] [place] [facility] [address] [id number] [place] [address]- 1832 Jun, [facility] [place] [facility] [address] [id number] [place] [address]- 3485 15 Jun, 2013 [facility] [place] [facility] [address] [id number] [place] [address]- 6111 Jun, [facility] [place] [facility] [address] [id number] [place] [address]- 7659 Jun, [facility] [place] [facility] [address] [id number] [place] [address]- 7930 Jun, [facility] [place] [facility] [address] [id number] [place] [address]- 0525 Jun, [facility] [place] [facility] [address] [id number] [place] [address]- 2853 Jun, [facility] [place] [facility] [address] [id number] [place] [address]- 3796 Jun, [facility] [place] [facility] [address] [id number] [place] [address]- 7640 Jun, [facility] [place] [facility] [address] [id number] [place] [address]- 5737 06 May, 2013 [facility] [place] [facility] [address] [id number] [place] [address] 04 May, 2013 [facility] [place] [facility] [address] [id number] [place] [address] May, [facility] [place] [facility] [address] [id number] [place] [address] Apr, [facility] [place] [facility] [address] [id number] [place] [address] Apr, [facility] [place] [facility] [address] [id number] [place] [address] Apr, [facility] [place] [facility] [address] [id number] [place] [address] Apr, [facility] [place] [facility] [address] [id number] [place] [address] Apr, [facility] [place] [facility] [address] [id number] [place] [address] Apr, [facility] [place] [facility] [address] [id number] [place] [address] Mar, [facility] [place] [facility] [address] [id number] [place] [address] Mar, [facility] [place] [facility] [address] [id number] [place] [address] Mar, [facility] [place] [facility] [address] [id number] [place] [address] Feb, [facility] [place] [facility] [address] [id number] [place] [address] Feb, [facility] [place] [facility] [address] [id number] [place] [address] Feb, [facility] [place] [facility] [address] [id number] [place] [address] Feb, [facility] [place] [facility] [address] [id number] [place] [address] January, [facility] [place] [facility] [address] [id number] [place] [address] January, [facility] [place] [facility] [address] [id number] [place] [address] Dec, [facility] [place] [facility] [address] [id number] [place] [address] Dec, [facility] [place] [facility] [address] [id number] [place] [address] Dec, [facility] [place] [facility] [address] [id number] [place] [address] 08 Dec, 2012 [facility] [address] [id number] [place] [address] Dec, [facility] [address] [id number] [place] [address] Nov, [facility] [address] [id number] [place] [address] Nov, [facility] [address] [id number] [place] [address] Nov, [facility] [address] [id number] [place] [address] Nov, [facility] [address] [id number] [place] [address] Nov, [facility] [address] [id number] [place] [address] Nov, [facility] [address] [id number] [place] [address] Nov, [facility] [address] [id number] [place] [address] Oct, [facility] [address] [id number] [place] [address] Oct, [facility] [address] [id number] [place] [address] Oct, [facility] [address] [id number] [place] [address] Oct, [facility] [address] [id number] [place] [address] Sep, [facility] [address] [id number] [place] [address]- [address] Sep, [facility] [address] [id number] [place] [address] Sep, [facility] [place] [facility] [address] [id number] [place] [address]- [address] Aug, [facility] [place] [facility] [address] [id number] [place] [address] Aug, [facility] [place] [facility] [address] [id number] [place] [address] Aug, [facility] [place] [facility] [address] [id number] [place] [address] Aug, [facility] [place] [facility] [address] [id number] [place] [address]- [address] Aug, [facility] [place] [facility] [address] [id number] [place] [address] Aug, [facility] [place] [facility] [address] [id number] [place] [address]- [address] Jul, [facility] [place] [facility] [address] [id number] [place] [address]- [address] Jul, [facility] [place] [facility] [address] [id number] [place] [address]- [address] Jul, [facility] [place] [facility] [address] [id number] [place] [address]- [address] Jul, [facility] [place] [facility] [address] [id number] [place] [address] Jun, [facility] [place] [facility] [address] [id number] [place] [address] Jun, [facility] [place] [facility] [address] [id number] [place] [address]- [address] Apr, [facility] [place] [facility] [address] [id number] [place] [address] Apr, [facility] [place] [facility] [address] [id number] [place] [address]- [address] Apr, [facility] [place] [facility] [address] [id number] [place] [address]- [address] Apr, [facility] [place] [facility] [address] [id number] [place] [address] Mar, [facility] [place] [facility] [address] [id number] [place] [address] Mar, [facility] [place] [facility] [address] [id number] [place] [address]- [address] Mar, [facility] [place] [facility] [address] [id number] [place] [address]- [address] Mar, [facility] [place] [facility] [address] [id number] [place] [address]- [address] Mar, [facility] [place] [facility] [address] [id number] [place] [address]- [address] Mar, [facility] [place] [facility] [address] [id number] [place] [address]- [address] Mar, [facility] [place] [facility] [address] [id number] [place] [address]- [address] Mar, [facility] [place] [facility] [address] [id number] [place] [address] Feb, [facility] [place] [facility] [address] [id number] [place] [address]- [address] Dec, [facility] [place] [facility] [address] [id number] [place] [address]- [address] Nov, [facility] [place] [facility] [address] [id number] [place] [address] Oct, [facility] [place] [facility] [address] [id number] [place] [address] Sep, [facility] [place] [facility] [address] [id number] [place] [address] Aug, [facility] [place] [facility] [address] [id number] [place] [address] Aug, [facility] [address] [facility] [id number] [address] Aug, [facility] [address] [id number] [address] Jul, [facility] [address] [id number] [address] Jul, [facility] [address] [id number] [address] Feb, [facility] [address] [facility] [id number] [address] Sep, IMMUNIZATIONS No Known Immunizations SOCIAL HISTORY Never Assessed REASON FOR VISIT Requests return call PLAN OF CARE VITAL SIGNS MEDICATIONS Unknown Medications RESULTS No Results PROCEDURES No Known procedures INSTRUCTIONS MEDICATIONS ADMINISTERED No Known Medications MEDICAL (GENERAL) HISTORY Type Description Date Medical History hypertension Medical History angioedema Surgical History cartoid Surgical History Heart cath 01/2016 Surgical History Heart Cath 06/24 Hospitalization History Allergic reaction to Amoxil. 10/2015
--- OUTSIDE RECORDS SUMMARY | 2018-04-22 15:11 | XMS REPORT ---
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 Name Role Phone MIKA DAVE Unavailable PROBLEMS Type Condition ICD9-CM Code YOR11-SR Code Onset Dates Condition Status SNOMED Code Problem Benign prostatic hyperplasia with lower urinary tract symptoms, symptom details unspecified N40.1 Active 640025301 Problem Obstructive sleep apnea G47.33 Active 11201344 Problem Angioedema T78.3XXA Active 42655060 Problem Low back pain M54.5 Active 463069756 Problem Essential hypertension I10 Active 70720549 ALLERGIES No Information ENCOUNTERS Encounter Location Date Diagnosis [place] [address] [address] Feb, Angioedema, subsequent encounter T78.3XXD [place] [address] 12984- 4265 January, [place] [address] 83010- [address]36 January, [facility] [address] [place] [id number] [place] [address] 46877- 0782 Nov, [facility] [address] [address]- 4733 Nov, [facility] [address] [address]- 7867 Oct, Essential hypertension I10 ; Angioedema T78.3XXA and Benign prostatic hyperplasia with lower urinary tract symptoms, symptom details unspecified N40.1 [place] [address] [place] [id number] [place] [address] 37823- 8697 Oct, [facility] [address] [place] [id number] Sep, Dental caries K02.9 [facility] [address] [place] [id number] [place] [address] 85886- 3700 Jul, [facility] [place] [facility] [address] [place] [id number] [place] [address] [id number] 14 Jul, 2017 Dental examination Z01.20 [facility] [address] 12668- 9911 03 Jul, 2017 [facility] [address] [place] [id number] [place] [address] 93804- 5190 Jun, [facility] [address] 37192- 1166 May, Bronchitis J40 [facility] [address] 84765- 8807 Apr, Obstructive sleep apnea G47.33 and Angioedema T78.3XXA [facility] [address] [place] [id number] [place] [address] 97948- 0348 January, Low back pain M54.5 [facility] [address] 86610- 3267 18 Dec, 2016 Low back pain M54.5 [facility] [address] [place] [id number] [place] [address] 43026- 4980 10 Dec, 2016 Essential hypertension I10 [facility] [address] [place] [id number] [place] [address] 42272- 9508 07 Dec, 2016 [facility] [address] [place] [id number] [place] [address] 38435 -9630 16 Jul, 2016 Angioedema T78.3XXA [facility] [address] [place] [id number] [place] [address] 83203- 4050 14 Jul, 2016 [facility] [address] [place] [id number] [place] [address] 10225- 5147 08 Jul, 2016 Angioedema T78.3XXA [facility] [address] [place] [id number] [place] [address] 72085- 8231 Jul, [facility] [address] 0[address] -0660 May, Acute pain of right knee M25.561 [facility] [address] [place] [id number] [place] [address] 68477 -3255 May, Bug bite, initial encounter W57.XXXA [facility] [address] 03749- 2862 January, Sleep apnea, unspecified type G47.30 [place] [address] 56975- 2819 January, Sleep apnea, unspecified type G47.30 [place] [address] [place] [id number] [place] [address] 50263- 5388 January, [place] [address] 78659- 8030 January, [facility] [address] [place] [id number] [place] [address] 28985- 0567 Dec, [place] [address] [place] [id number] [place] [address] 39696- 3502 Nov, Angioedema T78.3XXA [place] [address] [place] [id number] [place] [address] 09709- 0179 Oct, [facility] [address] [place] [id number] [place] [address] 17147- 4703 Oct, [facility] [address] [place] [id number] [place] [address] 07871- 4039 Sep, [place] [address] [place] [id number] [place] [address] 36116- 1828 Sep, Angioedema T78.3XXA [facility] [address] [place] [id number] [place] [address] 43213- 1231 Sep, [place] [address] [address] 2546 Aug, Angioedema T78.3[address]A [facility] [address] [place] [id number] [place] [address] 2546 Aug, [facility] [address] [place] [address] 2546 May, 2014 [facility] [address] [place] [id number] [place] [address], [place] [address] 2546 28 May, 2014 [facility] [id number] [place] [address], [place] [address] 2546 22 May, 2014 Angioedema 995.1 [facility] [address] [place] [address] 2546 18 May, 2014 [facility] [address] [place] [id number] [place] [address] 90934 2546 May, 2014 [facility] [address] [address] 2545 08 May, 2014 Angioedema 995.1 [facility] [address] [place] [address] 2546 Mar, 2014 [facility] [address], [place] [address] 2546 Mar, 2014 [facility] [address], [place] [address] 2546 Mar, 2014 [facility] [address], [place] [address] 2546 Mar, 2014 [facility] [address], [place] [address] 2546 Feb, [facility] [address] [place] [address] 2546 Feb, [facility] [address], [place] [address] 2546 30 Dec, 2014 [facility] [place] [facility] [address] [id number] [place] [address]- 1500 14 Dec, 2014 [facility] [place] [facility] [address] [id number] [place] [address]- 5497 13 Dec, 2014 [facility] [place] [facility] [address] [id number] [place] [address]- 3476 Oct, [facility] [place] [facility] [address] [id number] [place] [address]- 4161 Oct, [facility] [place] [facility] [address] [id number] [place] [address]- 1937 Sep, [facility] [place] [facility] [address] [id number] [place] [address]- 2032 Sep, [facility] [place] [facility] [address] [id number] [place] [address]- 5311 Aug, [facility] [place] [facility] [address] [id number] [place] [address]- 8934 Aug, [facility] [place] [facility] [address] [id number] [place] [address]- 4262 Aug, [facility] [place] [facility] [address] [id number] [place] [address]- 8464 Aug, [facility] [place] [facility] [address] [id number] [place] [address]- 3469 Aug, [facility] [place] [facility] [address] [id number] [place] [address]- 8426 Jul, [facility] [place] [facility] [address] [id number] [place] [address]- 7516 Jul, [facility] [place] [facility] [address] [id number] [place] [address]- 2156 Jul, [facility] [place] [facility] [address] [id number] [place] [address]- 8446 Jul, [facility] [place] [facility] [address] [id number] [place] [address]- 0586 Jun, [facility] [place] [facility] [address] [id number] [place] [address]- 1449 Jun, [facility] [place] [facility] [address] [id number] [place] [address]- 1370 Jun, [facility] [place] [facility] [address] [id number] [place] [address]- 2015 Jun, [facility] [place] [facility] [address] [id number] [place] [address]- 7185 May, [facility] [place] [facility] [address] [id number] [place] [address]- 4659 12 May, 2014 [facility] [place] [facility] [address] [id number] [place] [address]- 7960 08 May, 2014 [facility] [place] [facility] [address] [id number] [place] [address]- 3413 May, [facility] [place] [facility] [address] [id number] [place] [address]- 9621 05 May, 2014 [facility] [place] [facility] [address] [id number] [place] [address]- 2593 05 May, 2014 [facility] [place] [facility] [address] [id number] [place] [address]- 2262 Mar, [facility] [place] [facility] [address] [id number] [place] [address]- 1208 Mar, [facility] [place] [facility] [address] [id number] [place] [address]- 6904 Feb, [facility] [place] [facility] [address] [id number] [place] [address]- 9944 Feb, [facility] [place] [facility] [address] [id number] [place] [address]- 1085 Feb, [facility] [place] [facility] [address] [id number] [place] [address]- 1711 Feb, [facility] [place] [facility] [address] [id number] [place] [address]- 8259 January, [facility] [address] [id number] [place] 1558 January, [facility] [address] [id number] [place] [address]- 9347 January, [facility] [address] [id number] [place] [address]- 6866 January, [facility] [address] [id number] [place] [address]- 9239 January, [facility] [address] [id number] [place] 8717 January, [facility] [address] [id number] [place] [address]- 3207 January, [facility] [address] [id number] [place] [address]- 7863 January, [facility] [address] [id number] [place] [address]- 1677 Dec, [facility] [address] [id number] [place] [address]- 9196 Dec, [facility] [address] [id number] [place] [address]- 1551 Dec, [facility] [place] [facility] [address] [id number] [place] [address]- 3672 Dec, [facility] [address] [id number] [place] [address]- 2527 Dec, [facility] [place] [facility] [address] [id number] [place] [address]- 9308 Dec, [facility] [place] [facility] [address] [id number] [place] [address]- 1642 Dec, [facility] [place] [facility] [address] [id number] [place] [address]- 5101 Dec, [facility] [place] [facility] [address] [id number] [place] [address]- 2829 Dec, [facility] [place] [facility] [address] [id number] [place] [address]- 2633 Dec, [facility] [place] [facility] [address] [id number] [place] [address]- 9607 Dec, [facility] [place] [facility] [address] [id number] [place] [address]- 9376 Dec, [facility] [place] [facility] [address] [id number] [place] [address]- 7571 Dec, [facility] [place] [facility] [address] [id number] [place] [address]- 0835 Dec, [facility] [place] [facility] [address] [id number] [place] [address]- 8214 Dec, [facility] [place] [facility] [address] [id number] [place] [address]- 6975 Dec, [facility] [place] [facility] [address] [id number] [place] [address]- 6916 Nov, [facility] [place] [facility] [address] [id number] [place] [address]- 2784 Nov, [facility] [place] [facility] [address] [id number] [place] [address]- 1249 Nov, [facility] [place] [facility] [address] [id number] [place] [address]- 1008 Nov, [facility] [place] [facility] [address] [id number] [place] [address]- 7496 Nov, [facility] [place] [facility] [address] [id number] [place] [address]- 8283 Nov, [facility] [place] [facility] [address] [id number] [place] [address]- 4226 05 Nov, 2013 [facility] [place] [facility] [address] [id number] [place] [address]- 0664 Nov, [facility] [place] [facility] [address] [id number] [place] [address]- 4006 Oct, [facility] [place] [facility] [address] [id number] [place] [address]- 6556 Oct, [facility] [place] [facility] [address] [facility] [id number] [place] [address]- 8846 Oct, [facility] [place] [facility] [address] [id number] [place] [address]- 0477 Oct, [facility] [place] [facility] [address] [id number] [place] [address]- 1723 Oct, [facility] [place] [facility] [address] [facility] [id number] [place] [address]- 4241 Oct, [facility] [place] [facility] [address] [place] [id number] [place] [address]- 3755 Oct, [facility] [place] [facility] [address] [facility] [id number] [place] [address]- 0861 Oct, [facility] [place] [facility] [address] [facility] [id number] [place] [address]- 3780 Oct, [facility] [place] [facility] [address] [facility] [id number] [place] [address]- 0624 Oct, [facility] [place] [facility] [address] [facility] [id number] [place] [address]- 8115 Oct, [facility] [place] [facility] [address] [facility] [id number] [place] [address]- 2540 Oct, [facility] [place] [facility] [address] [facility] [id number] [place] [address]- 6786 Sep, [facility] [place] [facility] [address] [facility] [id number] [place] [address]- 9522 Sep, [facility] [place] [facility] [address] [facility] [id number] [place] [address]- 6015 Sep, [facility] [place] [facility] [address] [id number] [place] [address]- 0383 Sep, [facility] [place] [facility] [address] [id number] [place] [address]- 4606 Sep, [facility] [place] [facility] [address] [id number] [place] [address]- 1280 Sep, [facility] [place] [facility] [address] [id number] [place] [address]- 3757 Sep, [facility] [place] [facility] [address] [id number] [place] [address]- 1961 Sep, [facility] [place] [facility] [address] [id number] [place] [address]- 3888 Sep, [facility] [place] [facility] [address] [id number] [place] [address]- 5839 Sep, [facility] [place] [facility] [address] [id number] [place] [address]- 5249 Aug, [facility] [place] [facility] [address] [id number] [place] [address]- 4011 30 Aug, 2013 [facility] [place] [facility] [address] [id number] [place] [address]- 1008 Aug, [facility] [place] [facility] [address] [id number] [place] [address]- 3427 Aug, [facility] [place] [facility] [address] [id number] [address]- 7177 Aug, [facility] [place] [facility] [address] [id number] [place] [address]- 8928 Aug, [facility] [place] [facility] [address] [id number] [place] [address]- 9902 14 Aug, 2013 [facility] [place] [facility] [address] [id number] [place] [address]- 1511 14 Aug, 2013 [facility] [place] [facility] [address] [id number] [place] [address]- 8283 Jul, [facility] [place] [facility] [address] [id number] [place] [address]- 1872 Jul, [facility] [place] [facility] [address] [id number] [place] [address]- 5794 Jul, [facility] [place] [facility] [address] [id number] [place] [address]- 3913 Jul, [facility] [place] [facility] [address] [id number] [place] [address]- 9350 Jul, [facility] [place] [facility] [address] [id number] [place] [address]- 1918 Jul, [facility] [place] [facility] [address] [id number] [place] [address]- 1275 Jul, [facility] [place] [facility] [address] [id number] [place] [address]- 9486 Jul, [facility] [place] [facility] [address] [id number] [place] [address]- 5637 Jun, [facility] [place] [facility] [address] [id number] [place] [address]- 7099 Jun, [facility] [place] [facility] [address] [id number] [place] [address]- 9031 Jun, [facility] [place] [facility] [address] [id number] [place] [address]- 6332 Jun, [facility] [place] [facility] [address] [id number], [place] [address]- 7139 Jun, [facility] [place] [facility] [address] [id number] [place] [address]- 5282 24 Jun, 2013 [facility] [place] [facility] [address] [id number] [place] [address]- 1581 Jun, [facility] [place] [facility] [address] [id number], [place] [address]- 0226 19 Jun, 2013 [facility] [place] [facility] [address] [id number] [place] [address]- 6322 Jun, [facility] [place] [facility] [address] [id number] [place] [address]- 5545 Jun, [facility] [place] [facility] [address] [id number] [place] [address]- 8073 15 Jun, 2013 [facility] [place] [facility] [address] [id number] [place] [address]- 2490 Jun, [facility] [place] [facility] [address] [id number] [place] [address]- 3010 Jun, [facility] [place] [facility] [address] [id number] [place] [address]- 2725 Jun, [facility] [place] [facility] [address] [id number] [place] [address]- 0911 Jun, [facility] [place] [facility] [address] [id number] [place] [address]- 3434 Jun, [facility] [place] [facility] [address] [id number] [place] [address]- 4732 Jun, [facility] [place] [facility] [address] [id number] [place] [address]- 2282 Jun, [facility] [place] [facility] [address] [id number] [place] [address]- 1899 06 May, 2013 [facility] [place] [facility] [address] [id number] [place] [address]- 2699 04 May, 2013 [facility] [place] [facility] [address] [id number] [place] [address]- 0127 May, [facility] [place] [facility] [address] [id number] [place] [address]- 6759 Apr, [facility] [place] [facility] [address] [id number] [place] [address]- 5205 Apr, [facility] [place] [facility] [address] [id number] [place] [address]- 8826 Apr, [facility] [place] [facility] [address] [id number] [place] [address]- 8363 Apr, [facility] [place] [facility] [address] [id number] [place] [address]- 9780 Apr, [facility] [place] [facility] [address] [id number] [place] [address]- 0562 Apr, [facility] [place] [facility] [address] [id number] [place] [address]- 2410 Mar, [facility] [place] [facility] [address] [id number] [place] [address]- 7307 Mar, [facility] [place] [facility] [address] [id number] [place] [address]- 1020 Mar, [facility] [place] [facility] [address] [id number] [place] [address]- 3452 Feb, [facility] [place] [facility] [address] [id number] [place] [address]- 8184 Feb, [facility] [place] [facility] [address] [id number] [place] [address]- 2900 Feb, [facility] [place] [facility] [address] [id number] [place] [address]- 9418 Feb, [facility] [place] [facility] [address] [id number] [place] [address]- 8751 January, [facility] [place] [facility] [address] [id number] [place] [address] January, [facility] [place] [facility] [address] [id number] [place] [address] Dec, [facility] [place] [facility] [address] [id number] [place] [address] Dec, [facility] [place] [facility] [address] [id number] [place] [address] Dec, [facility] [place] [facility] [address] [id number] [place] [address] 08 Dec, 2012 [facility] [address] [id number] [place] [address] Dec, [facility] [address] [id number] [place] [address] Nov, [facility] [address] [id number] [place] [address] Nov, [facility] [address] [id number] [place] [address] Nov, [facility] [address] [id number] [place] [address] Nov, [facility] [address] [id number] [place] [address] Nov, [facility] [address] [id number] [place] [address] Nov, [facility] [address] [id number] [place] [address] Nov, [facility] [address] [id number] [place] [address] Oct, [facility] [address] [id number] [place] [address] Oct, [facility] [address] [id number] [place] [address] Oct, [facility] [address] [id number] [place] [address] Oct, [facility] [address] [id number] [place] [address] Sep, [facility] [address] [id number] [place] [address] Sep, [facility] [address] [id number] [place] [address] Sep, [facility] [place] [facility] [address] [id number] [place] [address] Aug, [facility] [place] [facility] [address] [id number] [place] [address] Aug, [facility] [place] [facility] [address] [id number] [place] [address] Aug, [facility] [place] [facility] [address] [id number] [place] [address] Aug, [facility] [place] [facility] [address] [id number] [place] [address] Aug, [facility] [place] [facility] [address] [id number] [place] [address] Aug, [facility] [place] [facility] [address] [id number] [place] [address] Jul, [facility] [place] [facility] [address] [id number] [place] [address] Jul, [facility] [place] [facility] [address] [id number] [place] [address] Jul, [facility] [place] [facility] [address] [id number] [place] [address] Jul, [facility] [place] [facility] [address] [id number], [place] [address] Jun, [facility] [place] [facility] [address] [id number], [place] [address] Jun, [facility] [place] [facility] [address] [id number] [place] [address] Apr, [facility] [place] [facility] [address] [id number], [place] [address] Apr, [facility] [place] [facility] [address] [id number] [place] [address] Apr, [facility] [place] [facility] [address] [id number] [place] [address] Apr, [facility] [place] [facility] [address] [id number] [place] [address] Mar, [facility] [place] [facility] [address] [id number] [place] [address] Mar, [facility] [place] [facility] [address] [id number] [place] [address] Mar, [facility] [place] [facility] [address] [id number] [place] [address] Mar, [facility] [place] [facility] [address] [id number] [place] [address] Mar, [facility] [place] [facility] [address] [id number] [place] [address] Mar, [facility] [place] [facility] [address] [id number] [place] [address] Mar, [facility] [place] [facility] [address] [id number] [place] [address] Mar, [facility] [place] [facility] [address] [id number] [place] [address] Feb, [facility] [place] [facility] [address] [id number] [place] [address] Dec, [facility] [place] [facility] [address] [id number] [place] [address]- [address] Nov, [facility] [place] [facility] [address] [id number] [place] [address]- [address] Oct, [facility] [place] [facility] [address] [id number] [place] [address] Sep, [facility] [place] [facility] [address] [id number] [place] [address]- [address] Aug, [facility] [place] [facility] [address] [id number] [place] [address] Aug, [facility] [address] [facility] [id number], [place] [address] Aug, [facility] [address] [id number], [place] [address] Jul, [facility] [address] [id number], [place] [address] Jul, [facility] [address] [id number], [place] [address] Feb, [facility] [address] [facility] [id number], [place] [address] Sep, IMMUNIZATIONS No Known Immunizations SOCIAL HISTORY Never Assessed REASON FOR VISIT Angioedema PLAN OF CARE VITAL SIGNS MEDICATIONS Unknown Medications RESULTS No Results PROCEDURES No Known procedures INSTRUCTIONS MEDICATIONS ADMINISTERED No Known Medications MEDICAL (GENERAL) HISTORY Type Description Date Medical History hypertension Medical History angioedema Surgical History cartoid Surgical History Heart cath 01/2016 Surgical History Heart Cath 06/24 Hospitalization History Allergic reaction to Amoxil. 10/2015
--- OUTSIDE RECORDS SUMMARY | 2018-04-22 15:12 | XMS REPORT ---
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 Name Role Phone MIKA DAVE Unavailable PROBLEMS Type Condition ICD9-CM Code ZVN00-XO Code Onset Dates Condition Status SNOMED Code Problem Benign prostatic hyperplasia with lower urinary tract symptoms, symptom details unspecified N40.1 Active 666675076 Problem Obstructive sleep apnea G47.33 Active 71953717 Problem Angioedema T78.3XXA Active 78379422 Problem Low back pain M54.5 Active 866423602 Problem Essential hypertension I10 Active 45301579 ALLERGIES No Information ENCOUNTERS Encounter Location Date Diagnosis [facility] [address] [address] January, [facility] [address] [address]- 9747 January, [facility] [address] [address]- 4823 Nov, [facility] [id number] [place] [address]77- 2153 Nov, [facility] [address] [address]- [address] Oct, Essential hypertension I10 ; Angioedema T78.3XXA and Benign prostatic hyperplasia with lower urinary tract symptoms, symptom details unspecified N40.1 [facility] [address] [address]- [address] Oct, [facility] [address] [id number] Sep, Dental caries K02.9 [facility] [address] [address]- 7864 Jul, [facility] [id number] [place] [id number] Jul, Dental examination Z01.20 [facility] [address] [address]- 4836 03 Jul, 2017 [facility] [address] 39[address]- 3254 Jun, [facility] [address] [address]34- 4752 May, Bronchitis J40 [facility] [address] [address]77- 2672 Apr, Obstructive sleep apnea G47.33 and Angioedema T78.3XXA [facility] [address] [address]- 9229 January, Low back pain M54.5 [facility] [address] 13840- 3464 18 Dec, 2016 Low back pain M54.5 [facility] [address] [address]- 2306 10 Dec, 2016 Essential hypertension I10 [facility] [id number] [place] [address] 60214- 3983 07 Dec, 2016 [facility] [id number] [place] [address] 59[address] -5175 16 Jul, 2016 Angioedema T78.3XXA [facility] [id number] [place] [address] 86676- 4375 14 Jul, 2016 [facility] [address] 6[address]77- 8864 08 Jul, 2016 Angioedema T78.3XXA [facility] [id number] [place] [address] 21841- 3256 04 Jul, 2016 [facility] [address] [address] -[address]67 May, Acute pain of right knee M25.561 [facility] [id number] [place] [address] 34712 -1781 May, Bug bite, initial encounter W57.XXXA [facility] [id number] [place] [address] 62551- 8826 January, Sleep apnea, unspecified type G47.30 [facility] [address] 28919- 6780 January, Sleep apnea, unspecified type G47.30 [place] [address] 27[address]- 3058 January, [facility] [id number] [place] [address] 84521- 0548 January, [facility] [address] 85908- 7926 Dec, [facility] [id number] [place] [address] 63005- 8809 Nov, Angioedema T78.3XXA [facility] [id number] [place] [address] 91014- 9589 Oct, [facility] [id number] [place] [address] 22653- 4055 Oct, [facility] [id number] [place] [address] 40930- 3485 Sep, [facility] [id number] [place] [address] 50562- 3640 Sep, Angioedema T78.3XXA [facility] [id number] [place] [address] 60560- 0543 Sep, [facility] [id number] [place] [address] 44806- 0012 Aug, Angioedema T78.3XXA [facility] [address] [facility] [id number] [place] [address]- 6474 Aug, [facility] [address] [id number] [place] [address]- 3662 28 May, 2014 [facility] [address] [id number] [place] [address] 2546 28 May, 2014 [facility] [address] [facility] [id number] [place] [address]- 254 22 May, 2014 Angioedema 995.1 [facility] [address] [id number] [place] [address]- 2588 18 May, 2014 [facility] [address] [id number] [place] [address]- 1237 May, 2014 [facility] [address] [facility] [id number] [place] [address]- 9802 08 May, 2015 Angioedema 995.1 [facility] [address] [id number], [place] [address]- 1869 Mar, 2014 [facility] [address] [facility] [id number] [place] [address]- 3013 Mar, 2014 [facility] [address] [facility] [id number], [place] [address]- 4653 Mar, [facility] [address] [facility] [id number], [place] [address]- 8658 Mar, [facility] [place] [facility] [address] [facility] [id number], [place] [address]- 9082 Feb, [facility] [place] [facility] [address] [facility] [id number] [place] [address]- 5241 Feb, [facility] [place] [facility] [address] [facility] [id number], [place] [address]- 5971 30 Dec, 2014 [facility] [place] [facility] [address] [facility] [id number] [place] [address]- 2340 14 Dec, 2014 [facility] [place] [facility] [address] [id number] [place] [address]- 8073 Dec, [facility] [place] [facility] [address] [id number] [place] [address]- 1321 Oct, [facility] [place] [facility] [address] [id number] [place] [address]- 5979 Oct, [facility] [place] [facility] [address] [id number] [place] [address]- 2319 Sep, [facility] [place] [facility] [address] [id number] [place] [address]- 4664 Sep, [facility] [place] [facility] [address] [id number] [place] [address] Aug, [facility] [place] [facility] [address] [id number] [place] [address]- 3450 Aug, [facility] [place] [facility] [address] [facility] [id number] [place] [address]- 0650 Aug, [facility] [place] [facility] [address] [facility] [id number] [place] [address]- 9648 Aug, [facility] [place] [facility] [address] [facility] [id number] [place] [address]- 5105 Aug, [facility] [place] [facility] [address] [facility] [id number] [place] [address]- 4482 Jul, [facility] [place] [facility] [address] [id number] [place] [address]- 6411 Jul, [facility] [place] [facility] [address] [id number] [place] [address]- 9539 Jul, [facility] [place] [facility] [address] [id number] [place] [address]- 2531 Jul, [facility] [place] [facility] [address] [facility] [id number] [place] [address]1 Jun, [facility] [place] [facility] [address] [id number] [place] [address]- 3234 Jun, [facility] [place] [facility] [address] [id number] [place] [address]- 9611 Jun, [facility] [place] [facility] [address] [id number] [place] [address]- 9243 Jun, [facility] [place] [facility] [address] [id number] [place] [address]- 0219 May, [facility] [place] [facility] [address] [id number] [place] [address]- 9314 May, [facility] [place] [facility] [address] [id number] [place] [address]- 5599 May, [facility] [place] [facility] [address] [id number] [place] [address]- 7370 May, [facility] [place] [facility] [address] [id number] [place] [address]- 1551 May, [facility] [place] [facility] [address] [id number] [place] [address]- 5777 May, [facility] [place] [facility] [address] [id number] [place] [address]- 5350 Mar, [facility] [place] [facility] [address] [id number] [place] [address]- 5728 Mar, [facility] [place] [facility] [address] [id number] [place] [address]- 4798 Feb, [facility] [place] [facility] [address] [id number] [place] [address]- 3945 Feb, [facility] [place] [facility] [address] [id number] [place] [address]- 0090 Feb, [facility] [place] [facility] [address] [id number] [place] [address]- 4766 Feb, [facility] [place] [facility] [address] [id number] [place] [address]- 8860 January, [facility] [place] [facility] [address] [id number] [place] [address]- 1125 January, [facility] [place] [facility] [address] [id number] [place] [address]- 0686 January, [facility] [place] [facility] [address] [id number] [place] 1850 January, [facility] [place] [facility] [address] [id number] [place] [address]- 0936 January, [facility] [place] [facility] [address] [id number] [place] [address]- 0347 January, [facility] [place] [facility] [address] [id number] [place] [address]- 2426 January, [facility] [place] [facility] [address] [id number] [place] [address]- 1312 January, [facility] [place] [facility] [address] [id number] [place] [address]- 3726 Dec, [facility] [place] [facility] [address] [id number] [place] [address]- 7110 Dec, [facility] [place] [facility] [address] [id number] [place] [address]- 2599 Dec, [facility] [place] [facility] [address] [id number] [place] [address]- 3115 Dec, [facility] [place] [facility] [address] [id number] [place] [address]- 3276 Dec, [facility] [place] [facility] [address] [id number] [place] [address]- 1689 Dec, [facility] [place] [facility] [address] [id number] [place] [address]- 7327 Dec, [facility] [place] [facility] [address] [id number] [place] [address]- 8372 Dec, [facility] [place] [facility] [address] [id number] [place] [address]- 1808 Dec, [facility] [place] [facility] [address] [id number] [place] [address]- 1994 Dec, [facility] [place] [facility] [address] [id number] [place] [address]- 3538 Dec, [facility] [place] [facility] [address] [id number] [place] [address]- 7486 Dec, [facility] [place] [facility] [address] [id number] [place] [address]- 1087 Dec, [facility] [place] [facility] [address] [id number] [place] [address]- 0678 Dec, [facility] [place] [facility] [address] [id number] [place] [address]- 3296 Dec, [facility] [place] [facility] [address] [id number] [place] [address]- 7506 Dec, [facility] [place] [facility] [address] [id number] [place] [address]- 3491 Nov, [facility] [place] [facility] [address] [id number] [place] [address]- 0497 Nov, [facility] [place] [facility] [address] [id number] [place] [address]- 2560 Nov, [facility] [place] [facility] [address] [id number] [place] [address]- 8863 Nov, [facility] [place] [facility] [address] [id number] [place] [address]- 5334 Nov, [facility] [place] [facility] [address] [id number] [place] [address]- 0547 Nov, [facility] [place] [facility] [address] [id number] [place] [address]- 6366 05 Nov, 2013 [facility] [place] [facility] [address] [id number] [place] [address]- 5396 Nov, [facility] [place] [facility] [address] [id number] [place] 3237 Oct, [facility] [place] [facility] [address] [id number] [place] [address]- 8842 Oct, [facility] [place] [facility] [address] [id number] [place] [address]- 7147 Oct, [facility] [place] [facility] [address] [facility] [id number] [place] [address]- 2741 Oct, [facility] [place] [facility] [address] [id number] [place] [address]- 3296 Oct, [facility] [place] [facility] [address] [id number] [place] [address]- 3485 Oct, [facility] [place] [facility] [address] [id number] [place] [address]- 8083 Oct, [facility] [place] [facility] [address] [facility] [id number] [place] [address]- 3264 Oct, [facility] [place] [facility] [address] [id number] [place] [address]- 8384 Oct, [facility] [place] [facility] [address] [id number] [place] [address]- 5519 Oct, [facility] [place] [facility] [address] [facility] [id number] [place] [address]- 3623 Oct, [facility] [place] [facility] [address] [facility] [id number] [place] [address]- 4774 Oct, [facility] [place] [facility] [address] [facility] [id number] [place] [address]- 1754 Sep, [facility] [place] [facility] [address] [id number] [place] [address]- 8790 Sep, [facility] [place] [facility] [address] [facility] [id number] [place] [address]- 1594 Sep, [facility] [place] [facility] [address] [facility] [id number] [place] [address]- 9372 Sep, [facility] [place] [facility] [address] [id number] [place] [address]- 5988 Sep, [facility] [place] [facility] [address] [id number] [place] [address]- 6925 Sep, [facility] [place] [facility] [address] [id number] [place] [address]- 0226 Sep, [facility] [place] [facility] [address] [id number] [place] [address]- 1829 Sep, [facility] [place] [facility] [address] [id number] [place] [address]- 6013 Sep, [facility] [place] [facility] [address] [id number] [place] [address]- 9952 Sep, [facility] [place] [facility] [address] [id number] [place] [address]- 3390 Aug, [facility] [place] [facility] [address] [id number] [place] [address]- 9556 30 Aug, 2013 [facility] [place] [facility] [address] [id number] [place] [address]- 3349 Aug, [facility] [place] [facility] [address] [id number] [place] [address]- 4747 Aug, [facility] [place] [facility] [address] [id number] [place] [address]- 5953 Aug, [facility] [place] [facility] [address] [id number] [place] [address]- 9647 Aug, [facility] [place] [facility] [address] [id number] [place] [address]- 1490 Aug, [facility] [place] [facility] [address] [id number] [place] [address]- 8890 Aug, [facility] [place] [facility] [address] [id number] [place] [address]- 7108 Jul, [facility] [place] [facility] [address] [id number] [place] [address]- 2061 Jul, [facility] [place] [facility] [address] [id number] [place] [address]- 1379 Jul, [facility] [place] [facility] [address] [id number] [place] [address]- 5512 Jul, [facility] [place] [facility] [address] [id number] [place] [address]- 0675 Jul, [facility] [place] [facility] [address] [id number] [place] [address]- 2133 Jul, [facility] [place] [facility] [address] [id number] [place] [address]- 5608 Jul, [facility] [place] [facility] [address] [id number] [place] [address]- 5443 Jul, [facility] [place] [facility] [address] [id number] [place] [address]- 4189 Jun, [facility] [place] [facility] [address] [id number], [place] [address]- 4892 Jun, [facility] [place] [facility] [address] [id number], [place] [address]- 1972 Jun, [facility] [place] [facility] [address] [id number], [place] [address]- 3309 Jun, [facility] [place] [facility] [address] [id number], [place] [address]- 6115 Jun, [facility] [place] [facility] [address] [id number], [place] [address]- 9192 Jun, [facility] [place] [facility] [address] [id number], [place] [address]- 4293 Jun, [facility] [place] [facility] [address] [id number], [place] [address]- 6136 Jun, [facility] [place] [facility] [address] [id number], [place] [address]- 1450 Jun, [facility] [place] [facility] [address] [id number] [place] [address]- 1418 15 Jun, 2013 [facility] [place] [facility] [address] [id number] [place] [address]- 1556 15 Jun, 2013 [facility] [place] [facility] [address] [id number] [place] [address]- 7557 Jun, [facility] [place] [facility] [address] [id number] [place] [address]- 7215 10 Jun, 2013 [facility] [place] [facility] [address] [id number] [place] [address]- 5988 Jun, [facility] [place] [facility] [address] [id number] [place] [address]- 0746 08 Jun, 2013 [facility] [place] [facility] [address] [id number] [place] [address]- 9936 05 Jun, 2013 [facility] [place] [facility] [address] [id number] [place] [address]- 4104 Jun, [facility] [place] [facility] [address] [id number] [place] [address]- 7385 Jun, [facility] [place] [facility] [address] [id number] [place] [address]- 3333 06 May, 2013 [facility] [place] [facility] [address] [id number] [place] [address]- 1761 04 May, 2013 [facility] [place] [facility] [address] [id number] [place] [address]- 2382 May, [facility] [place] [facility] [address] [id number] [place] [address]- 6617 Apr, [facility] [place] [facility] [address] [id number] [place] [address]- 5151 Apr, [facility] [place] [facility] [address] [id number] [place] [address]- 8515 Apr, [facility] [place] [facility] [address] [id number] [place] [address] Apr, [facility] [place] [facility] [address] [id number] [place] [address] Apr, [facility] [address] [id number] [place] [address] Apr, [facility] [address] [id number] [place] [address] Mar, [facility] [address] [id number] [place] [address] Mar, [facility] [address] [id number] [place] [address] Mar, [facility] [address] [id number] [place] [address] Feb, [facility] [address] [id number] [place] [address] Feb, [facility] [address] [id number] [place] [address]100 Feb, [facility] [address] [id number] [place] [address] 18[address] Feb, [facility] [address] [id number] [place] [address] January, [facility] [address] [id number] [place] [address] January, [facility] [address] [id number] [place] [address] Dec, [facility] [place] [facility] [address] [id number] [place] [address]- [address]887 Dec, [facility] [place] [facility] [address] [id number] [place] [address]- [address]12 Dec, [facility] [place] [facility] [address] [id number] [place] [address] Dec, [facility] [address] [id number] [place] [address]- [address]266 Dec, [facility] [address] [id number] [place] [address]- 49[address] Nov, [facility] [address] [id number] [place] [address]- [address] Nov, [facility] [address] [id number] [place] [address]- [address]65 Nov, [facility] [address] [id number] [place] [address]- 4945 Nov, [facility] [address] [id number] [place] [address]- 4088 Nov, [facility] [address] [id number] [place] [address]- [address]21 Nov, [facility] [address] [id number] [place] [address] 3471 Nov, [facility] [address] [id number] [place] [address]- [address] Oct, [facility] [address] [id number] [place] [address]- 8636 Oct, [facility] [address] [id number] [place] [address]- 245[address] Oct, [facility] [address] [id number], [place] [address]83 Oct, [facility] [place] [facility] [address] [id number], [place] [address] Sep, [facility] [place] [facility] [address] [id number] [place] [address]- 8301 Sep, [facility] [place] [facility] [address] [id number] [place] [address]- [address]703 Sep, [facility] [place] [facility] [address] [id number] [place] [address]185 Aug, [facility] [place] [facility] [address] [id number] [place] [address]- [address]7 Aug, [facility] [place] [facility] [address] [id number] [place] [address]- 9726 Aug, [facility] [place] [facility] [address] [id number] [place] [address]- 8976 Aug, [facility] [place] [facility] [address] [id number] [place] [address]- [address] Aug, [facility] [place] [facility] [address] [id number] [place] [address]- [address]473 Aug, [facility] [place] [facility] [address] [id number] [place] [address]- [address]73 Jul, [facility] [place] [facility] [address] [id number] [place] [address]- 1384 Jul, [facility] [place] [facility] [address] [id number] [place] [address]- 1221 Jul, [facility] [place] [facility] [address] [id number] [place] [address]- 9533 Jul, [facility] [place] [facility] [address] [id number] [place] [address]- 7435 Jun, [facility] [place] [facility] [address] [id number] [place] [address] Jun, [facility] [place] [facility] [address] [id number] [place] [address]- 8522 Apr, [facility] [place] [facility] [address] [id number] [place] [address]- 9555 Apr, [facility] [place] [facility] [address] [id number] [place] [address]- 7294 Apr, [facility] [place] [facility] [address] [id number] [place] [address]- [address]376 Apr, [facility] [place] [facility] [address] [id number] [place] [address]- 6369 Mar, [facility] [address] [id number] [place] [address]- 9668 Mar, [facility] [place] [facility] [address] [id number] [place] [address]- 9611 Mar, [facility] [place] [facility] [address] [id number] [place] [address]- 2570 Mar, [facility] [place] [facility] [address] [id number] [place] [address]- 1239 Mar, [facility] [address] [id number] [place] [address]- 9157 Mar, [facility] [address] [id number] [place] [address]- 4471 Mar, [facility] [address] [id number] [place] [address]- 4435 Mar, [facility] [place] [facility] [address] [id number] [place] [address]- 8922 Feb, [facility] [place] [facility] [address] [id number] [place] [address]- 8482 Dec, [facility] [place] [facility] [address] [id number] [place] [address]- [address] Nov, [facility] [place] [facility] [address] [id number] [place] [address] Oct, [facility] [place] [facility] [address] [id number], [place] [address] Sep, [facility] [place] [facility] [address] [id number] [place] [address] Aug, [facility] [place] [facility] [address] [id number] [place] [address] Aug, [facility] [place] [facility] [address] [id number] [place] [address] Aug, [facility] [place] [facility] [address] [facility] [id number] [place] [address] Jul, [facility] [address] [facility] [id number], [place] [address] Jul, [facility] [address] [facility] [id number], [place] [address] Feb, [facility] [address] [facility] [id number], [place] [address] Sep, IMMUNIZATIONS No Known Immunizations SOCIAL HISTORY Never Assessed REASON FOR VISIT med refill PLAN OF CARE VITAL SIGNS MEDICATIONS Medication Instructions Dosage Frequency Start Date End Date Duration Status Flomax 0.4 mg TAKE ONE CAPSULE BY MOUTH DAILY 30 Active RESULTS No Results PROCEDURES No Known procedures INSTRUCTIONS MEDICATIONS ADMINISTERED No Known Medications MEDICAL (GENERAL) HISTORY Type Description Date Medical History hypertension Medical History angioedema Surgical History cartoid Surgical History Heart cath 01/2016 Surgical History Heart Cath 06/24 Hospitalization History Allergic reaction to Amoxil. 10/2015
--- OUTSIDE RECORDS SUMMARY | 2018-04-22 15:12 | XMS REPORT ---
Author Author ANGELINEMARSHAL GONZALO [facility] Address Unknown Care Team Providers Care Inspector General Name Role Phone GONZALO SINGH Unavailable PROBLEMS Type Condition ICD9-CM Code GDS92-HD Code Onset Dates Condition Status SNOMED Code Problem Benign prostatic hyperplasia with lower urinary tract symptoms, symptom details unspecified N40.1 Active 065047463 Problem Obstructive sleep apnea G47.33 Active 47133345 Problem Angioedema T78.3XXA Active 12098553 Problem Low back pain M54.5 Active 032149962 Problem Essential hypertension I10 Active [id number] ALLERGIES No Information ENCOUNTERS Encounter Location Date Diagnosis [facility], [place] [address] [address] January, [facility], [place] [address] [address]- 1148 January, [facility], [place] [address] 16289- 7493 Nov, [facility], [place] [id number] [place] [address] 38766- 1153 Nov, [facility], [place] [id number] [place] [address] 59773- 9049 Oct, Essential hypertension I10 ; Angioedema T78.3XXA and Benign prostatic hyperplasia with lower urinary tract symptoms, symptom details unspecified N40.1 [facility], [place] [address] [address]- 2697 Oct, [facility] [address] [id number] Sep, Dental caries K02.9 [facility], [place] [address] 43039- 0871 Jul, [facility] [address] [place] [address] [id number] 14 Jul, 2017 Dental examination Z01.20 [facility], [place] [address] 75909- 7256 03 Jul, 2017 [facility] [place] [id number] [place] [address] 35873- 7794 Jun, [facility], [place] [address] 71342- 3271 25 May, 2017 Bronchitis J40 [facility] [place] [address] 16558- 6673 Apr, Obstructive sleep apnea G47.33 and Angioedema T78.3XXA [facility], [place] [id number] [place] [address] 72131- 5822 January, Low back pain M54.5 [place] [address] [address]- 2297 18 Dec, 2016 Low back pain M54.5 [facility], [place] [address] 65153- 8315 10 Dec, 2016 Essential hypertension I10 [facility], [place] [id number] [place] [address] 03163- 4737 07 Dec, 2016 [facility] [id number] [place] [address] 73175 -4462 16 Jul, 2016 Angioedema T78.3XXA [facility], [place] [id number] [place] [address] 74495- 5827 14 Jul, 2016 [facility], [place] [address] 56227- 8291 08 Jul, 2016 Angioedema T78.3XXA [facility], [place] [id number] [place] [address] 62758- 3697 04 Jul, 2016 [facility] [id number] [place] [address] 19672 -9588 23 Sep, 2016 Acute pain of right knee M25.561 [facility] [address] [address] May, Bug bite, initial encounter W57.XXXA [facility], [place] [id number] [place] [address] 69409- 3236 January, Sleep apnea, unspecified type G47.30 [facility], [place] [id number] [place] [address] 69843- 6412 January, Sleep apnea, unspecified type G47.30 [facility], [place] [id number] [place] [address] 32977- 4445 January, [facility], [place] [id number] [place] [address] 53015- 2562 January, [facility], [place] [id number] [place] [address] 26127- 0818 Dec, [facility], [place] [id number] [place] [address] 39718- 2396 Nov, Angioedema T78.3XXA [facility], [place] [id number] [place] [address] 34189- 6360 Oct, [facility], [place] [id number] [place] [address] 37277- 0416 Oct, [facility], [place] [id number] [place] [address] 31716- 4459 Sep, [facility], [place] [id number] [place] [address] 21954- 4998 Sep, Angioedema T78.3XXA [facility], [place] [id number] [place] [address] 10185- 3446 Sep, [facility], [place] [id number] [place] [address] 33248- 2546 Aug, Angioedema T78.3XXA [facility], [place] [id number] [place] [address] 73225- 5786 Aug, [facility] [address] [id number] [place] [address] 2546 May, 2014 [facility] [address] [id number] [place] [address] 2546 28 May, 2014 [facility] [address] [facility] [id number] [place] [address] 2546 May, 2014 Angioedema 995.1 [facility] [place] [facility] [address] [id number] [place] [address] 2546 18 May, 2014 [facility] [address] [id number] [place] [address] 2546 May, 2014 [facility] [address] [facility] [id number] [place] [address] 2546 08 May, 2015 Angioedema 995.1 [facility] [address] [id number] [place] [address] 2546 Mar, 2014 [facility] [address] [id number] [place] [address] 254 Mar, [facility] [address] [facility] [id number] [place] [address]- 5256 Mar, [facility] [address] [facility] [id number] [place] [address]- 1803 Mar, [facility] [place] [facility] [address] [facility] [id number] [place] [address] 2546 Feb, [facility] [place] [facility] [address] [id number] [place] [address] 2546 Feb, [facility] [place] [facility] [address] [facility] [id number] [place] [address] 2546 30 Dec, 2014 [facility] [place] [facility] [address] [id number] [place] [address] 2546 14 Dec, 2014 [facility] [place] [facility] [address] [facility] [id number] [place] [address] 6900 Dec, [facility] [place] [facility] [address] [id number] [place] [address]- 2854 Oct, [facility] [place] [facility] [address] [id number] [place] [address]- 7874 Oct, [facility] [place] [facility] [address] [id number] [place] [address]- 8460 Sep, [facility] [place] [facility] [address] [id number] [place] [address]- 3971 Sep, [facility] [place] [facility] [address] [id number] [place] [address]- 6372 Aug, [facility] [place] [facility] [address] [id number] [place] [address]- 8199 Aug, [facility] [place] [facility] [address] [facility] [id number] [place] [address]- 5259 Aug, [facility] [place] [facility] [address] [id number] [place] [address]- 8535 Aug, [facility] [place] [facility] [address] [id number] [place] [address]- 7846 Aug, [facility] [place] [facility] [address] [facility] [id number] [place] [address]- 6105 Jul, [facility] [place] [facility] [address] [id number] [address]- 9250 Jul, [facility] [place] [facility] [address] [id number] [address]- 5021 Jul, [facility] [place] [facility] [address] [id number] [place] [address]- 5889 Jul, [facility] [place] [facility] [address] [id number] [place] [address]- 3227 Jun, [facility] [place] [facility] [address] [id number] [place] [address]- 1935 Jun, [facility] [place] [facility] [address] [id number] [place] [address]- 1507 16 Jun, 2014 [facility] [place] [facility] [address] [id number] [place] [address]- 9868 16 Jun, 2014 [facility] [place] [facility] [address] [id number] [place] [address]- 6961 12 May, 2014 [facility] [place] [facility] [address] [id number] [place] [address]- 1145 12 May, 2014 [facility] [place] [facility] [address] [id number] [place] [address]- 2604 08 May, 2014 [facility] [place] [facility] [address] [id number] [place] [address]- 2073 08 May, 2014 [facility] [place] [facility] [address] [id number] [place] [address]- 6960 May, [facility] [place] [facility] [address] [id number] [place] [address]- 3984 May, [facility] [place] [facility] [address] [id number] [place] [address]- 2859 Mar, [facility] [place] [facility] [address] [id number] [place] [address]- 8514 Mar, [facility] [place] [facility] [address] [id number] [place] [address]- 6312 Feb, [facility] [place] [facility] [address] [id number] [place] [address]- 9149 Feb, [facility] [place] [facility] [address] [id number] [place] [address]- 8141 Feb, [facility] [place] [facility] [address] [id number] [place] [address]- 4538 Feb, [facility] [place] [facility] [address] [id number] [place] [address]- 8855 January, [facility] [place] [facility] [address] [id number] [place] [address]- 8210 January, [facility] [place] [facility] [address] [id number] [place] [address]- 7648 January, [facility] [place] [facility] [address] [id number] [place] [address]- 2265 January, [facility] [place] [facility] [address] [id number] [place] [address]- 9782 January, [facility] [place] [facility] [address] [id number] [place] [address]- 8893 January, [facility] [place] [facility] [address] [id number] [place] [address]- 7886 January, [facility] [place] [facility] [address] [id number] [place] [address]- 6290 January, [facility] [place] [facility] [address] [id number] [place] [address]- 8038 Dec, [facility] [place] [facility] [address] [id number] [place] [address]- 9156 Dec, [facility] [place] [facility] [address] [id number] [place] [address]- 2592 Dec, [facility] [place] [facility] [address] [id number] [place] [address]- 1781 Dec, [facility] [place] [facility] [address] [id number] [place] [address]- 1362 Dec, [facility] [place] [facility] [address] [id number] [place] [address]- 0424 Dec, [facility] [place] [facility] [address] [id number] [place] [address]- 1476 Dec, [facility] [place] [facility] [address] [id number] [place] [address]- 3768 Dec, [facility] [place] [facility] [address] [id number] [place] [address]- 8435 Dec, [facility] [place] [facility] [address] [id number] [place] [address]- 9386 Dec, [facility] [place] [facility] [address] [id number] [place] [address]- 5908 Dec, [facility] [place] [facility] [address] [id number] [place] [address]- 1277 Dec, [facility] [place] [facility] [address] [id number] [place] [address]- 9364 Dec, [facility] [place] [facility] [address] [id number] [place] [address]- 1425 Dec, [facility] [place] [facility] [address] [id number] [place] [address]- 8134 Dec, [facility] [place] [facility] [address] [id number] [place] [address]- 4521 Dec, [facility] [place] [facility] [address] [id number] [place] [address]- 1521 Nov, [facility] [place] [facility] [address] [id number] [place] [address]- 1010 Nov, [facility] [place] [facility] [address] [id number] [place] [address]- 0257 Nov, [facility] [place] [facility] [address] [id number] [place] [address]- 3251 Nov, [facility] [place] [facility] [address] [id number] [place] [address]- 7047 Nov, [facility] [place] [facility] [address] [id number] [place] [address]- 4009 Nov, [facility] [place] [facility] [address] [id number] [place] [address]- 0826 Nov, [facility] [place] [facility] [address] [id number] [place] [address]- 4117 Nov, [facility] [place] [facility] [address] [id number] [place] [address]- 6194 Oct, [facility] [place] [facility] [address] [id number] [place] [address]- 1408 Oct, [facility] [place] [facility] [address] [id number] [place] [address]- 9509 Oct, [facility] [place] [facility] [address] [id number] [place] [address]- 3846 Oct, [facility] [place] [facility] [address] [id number] [place] [address]- 3944 Oct, [facility] [place] [facility] [address] [id number] [place] [address]- 5687 Oct, [facility] [place] [facility] [address] [id number] [place] [address]- 4133 Oct, [facility] [place] [facility] [address] [facility] [id number] [place] [address]- 9263 Oct, [facility] [place] [facility] [address] [facility] [id number] [place] [address]- 2048 Oct, [facility] [place] [facility] [address] [facility] [id number] [place] [address]- 2046 Oct, [facility] [place] [facility] [address] [facility] [id number] [place] [address]- 5026 Oct, [facility] [place] [facility] [address] [facility] [id number] [place] [address]- 2944 Oct, [facility] [place] [facility] [address] [id number] [address]- 7611 Sep, [facility] [place] [facility] [address] [id number] [place] [address]- 3794 Sep, [facility] [place] [facility] [address] [id number], [place] [address]- 0091 Sep, [facility] [place] [facility] [address] [facility] [id number], [place] [address]- 2421 Sep, [facility] [place] [facility] [address] [id number], [place] [address]- 8446 Sep, [facility] [address] [id number] [place] [address]- 6209 Sep, [facility] [place] [facility] [address] [id number] [place] [address]- 4246 Sep, [facility] [place] [facility] [address] [facility] [id number] [place] [address]- 3454 Sep, [facility] [place] [facility] [address] [id number] [place] [address]- 5704 Sep, [facility] [place] [facility] [address] [id number] [place] [address]- 9509 Sep, [facility] [place] [facility] [address] [id number] [place] [address]- 1895 Aug, [facility] [place] [facility] [address] [facility] [id number] [place] [address]- 6108 Aug, [facility] [place] [facility] [address] [id number] [place] [address]- 5755 Aug, [facility] [place] [facility] [address] [id number] [place] [address]- 4829 Aug, [facility] [place] [facility] [address] [facility] [id number] [place] [address]- 2503 Aug, [facility] [place] [facility] [address] [id number] [place] [address]- 6158 Aug, [facility] [place] [facility] [address] [id number] [place] [address]- 1473 Aug, [facility] [place] [facility] [address] [id number] [place] [address]- 9267 Aug, [facility] [place] [facility] [address] [id number] [place] [address]- 4797 Jul, [facility] [place] [facility] [address] [facility] [id number] [place] [address]- 3548 Jul, [facility] [place] [facility] [address] [id number] [place] [address]- 2630 Jul, [facility] [place] [facility] [address] [id number] [place] [address]- 4695 Jul, [facility] [place] [facility] [address] [id number] [place] 5204 Jul, [facility] [place] [facility] [address] [id number] [place] [address]- 8783 Jul, [facility] [place] [facility] [address] [id number] [place] [address]- 3155 Jul, [facility] [place] [facility] [address] [id number] [place] [address]- 3433 Jul, [facility] [place] [facility] [address] [id number] [place] [address]- 8214 Jun, [facility] [place] [facility] [address] [id number] [place] [address]- 8748 Jun, [facility] [place] [facility] [address] [id number] [place] [address]- 2738 Jun, [facility] [place] [facility] [address] [id number] [place] [address]- 1344 Jun, [facility] [place] [facility] [address] [id number] [place] [address]- 5817 Jun, [facility] [place] [facility] [address] [id number] [place] [address]- 0593 24 Jun, 2013 [facility] [place] [facility] [address] [id number] [place] [address]- 4024 Jun, [facility] [place] [facility] [address] [id number] [place] [address]- 3264 Jun, [facility] [place] [facility] [address] [id number] [place] [address]- 8161 Jun, [facility] [place] [facility] [address] [id number] [place] [address]- 2538 15 Jun, 2013 [facility] [place] [facility] [address] [id number] [place] [address]- 2538 15 Jun, 2013 [facility] [place] [facility] [address] [id number] [place] [address]- 1854 Jun, [facility] [place] [facility] [address] [id number] [place] [address]- 8245 10 Jun, 2013 [facility] [place] [facility] [address] [id number] [place] [address]- 6146 Jun, [facility] [place] [facility] [address] [id number] [place] [address]- 2623 Jun, [facility] [place] [facility] [address] [id number] [place] [address]- 0070 05 Jun, 2013 [facility] [place] [facility] [address] [id number] [place] [address]- 5931 Jun, [facility] [place] [facility] [address] [id number] [place] [address]- 4523 Jun, [facility] [place] [facility] [address] [id number] [place] [address]- 0454 May, [facility] [place] [facility] [address] [id number] [place] [address]- 6148 May, [facility] [place] [facility] [address] [id number], [place] [address]- 0822 May, [facility] [place] [facility] [address] [id number], [place] [address]- 2792 Apr, [facility] [place] [facility] [address] [id number] [place] [address]- 8341 Apr, [facility] [place] [facility] [address] [id number] [place] [address]- 9447 Apr, [facility] [place] [facility] [address] [id number] [place] [address]- 2191 Apr, [facility] [place] [facility] [address] [id number] [place] [address]- 3002 Apr, [facility] [address] [id number] [place] [address]- 7971 Apr, [facility] [address] [id number] [place] [address]- 3725 Mar, [facility] [address] [id number] [place] [address]- 7088 Mar, [facility] [address] [id number] [place] [address]- 7030 Mar, [facility] [address] [id number] [place] [address]- 4404 Feb, [facility] [address] [id number] [place] [address]- 7909 Feb, [facility] [address] [id number] [place] [address]- 8050 Feb, [facility] [address] [id number] [place] [address] Feb, [facility] [address] [id number] [place] [address] January, [facility] [address] [id number] [place] [address] January, [facility] [address] [id number] [place] [address] Dec, [facility] [place] [facility] [address] [id number] [place] [address] Dec, [facility] [place] [facility] [address] [id number] [place] [address]68 Dec, [facility] [place] [facility] [address] [id number] [place] [address] Dec, [facility] [place] [facility] [address] [id number] [place] [address] Dec, [facility] [place] [facility] [address] [id number] [place] [address] Nov, [facility] [address] [id number] [place] [address] Nov, [facility] [place] [facility] [address] [id number] [place] [address] Nov, [facility] [place] [facility] [address] [id number] [place] [address] Nov, [facility] [address] [id number] [place] [address] Nov, [facility] [place] [facility] [address] [id number] [place] [address] Nov, [facility] [address] [id number] [place] [address] Nov, [facility] [address] [id number] [place] [address] Oct, [facility] [address] [id number] [place] [address] Oct, [facility] [address] [id number] [place] [address] Oct, [facility] [address] [id number] [place] [address] 8518 Oct, [facility] [address] [id number] [place] [address] Sep, [facility] [place] [facility] [address] [id number] [place] [address] Sep, [facility] [place] [facility] [address] [id number] [place] [address] Sep, [facility] [place] [facility] [address] [id number] [place] [address] Aug, [facility] [place] [facility] [address] [id number], [place] [address] Aug, [facility] [place] [facility] [address] [id number] [place] [address] Aug, [facility] [place] [facility] [address] [id number] [place] [address] Aug, [facility] [place] [facility] [address] [facility] [id number] [place] [address] Aug, [facility] [place] [facility] [address] [id number] [place] [address] Aug, [facility] [place] [facility] [address] [id number] [place] [address] Jul, [facility] [place] [facility] [address] [id number] [place] [address] Jul, [facility] [place] [facility] [address] [id number] [place] [address] Jul, [facility] [place] [facility] [address] [facility] [id number] [place] [address] Jul, [facility] [place] [facility] [address] [id number] [place] [address] Jun, [facility] [place] [facility] [address] [facility] [id number] [place] [address] 1768 Jun, [facility] [place] [facility] [address] [facility] [id number] [place] [address] Apr, [facility] [place] [facility] [address] [id number], [place] [address] Apr, [facility] [place] [facility] [address] [id number] [place] [address]60 Apr, [facility] [place] [facility] [address] [facility] [id number] [place] [address] Apr, [facility] [place] [facility] [address] [facility] [id number] [place] [address] Mar, [facility] [place] [facility] [address] [id number] [place] [address] Mar, [facility] [place] [facility] [address] [id number] [place] [address] Mar, [facility] [place] [facility] [address] [id number] [place] [address]- [address] Mar, [facility] [place] [facility] [address] [id number] [place] [address] Mar, [facility] [place] [facility] [address] [id number] [place] [address] Mar, [facility] [place] [facility] [address] [id number] [place] [address]116 Mar, [facility] [place] [facility] [address] [id number] [place] [address] Mar, [facility] [place] [facility] [address] [id number] [place] [address] Feb, [facility] [place] [facility] [address] [id number] [place] [address] Dec, [facility] [place] [facility] [address] [id number] [place] [address] Nov, [facility] [place] [facility] [address] [id number] [place] [address]46 Oct, [facility] [place] [facility] [address] [id number] [place] [address]46 Sep, [facility] [place] [facility] [address] [id number] [place] [address] Aug, [facility] [place] [facility] [address] [id number] [place] [address]- 2546 Aug, [facility] [place] [facility] [address] [id number] [place] [address] 2546 Aug, [facility] [place] [facility] [address] [id number] [place] [address] Jul, [facility] [place] [address] [facility] [id number] [place] [address] Jul, [facility] [place] [address] [facility] [id number], [place] [address] Feb, [facility], [place] [address] [facility] [id number] [place] [address] Sep, IMMUNIZATIONS No Known Immunizations SOCIAL HISTORY Never Assessed REASON FOR VISIT Dental appt PLAN OF CARE VITAL SIGNS MEDICATIONS Unknown Medications RESULTS No Results PROCEDURES No Known procedures INSTRUCTIONS MEDICATIONS ADMINISTERED No Known Medications MEDICAL (GENERAL) HISTORY Type Description Date Medical History hypertension Medical History angioedema Surgical History cartoid Surgical History Heart cath 01/2016 Surgical History Heart Cath 06/24 Hospitalization History Allergic reaction to Amoxil. 10/2015
--- OUTSIDE RECORDS SUMMARY | 2018-04-22 15:13 | XMS REPORT ---
Author Author SABINA NOVAK [facility] Address [address] [place] [address] Care Team Providers Care Pasting Machine Offbearer Name Role Phone SABINA NOVAK Unavailable PROBLEMS Type Condition ICD9-CM Code XHF23-IZ Code Onset Dates Condition Status SNOMED Code Problem Benign prostatic hyperplasia with lower urinary tract symptoms, symptom details unspecified N40.1 Active 628789524 Problem Obstructive sleep apnea G47.33 Active 17821971 Problem Angioedema T78.3XXA Active 56626068 Problem Low back pain M54.5 Active 837967137 Problem Essential hypertension I10 Active 68763119 ALLERGIES Substance Reaction Event Type Date Status Zocor Unknown Drug Allergy Jul, Active Amoxicillin anaphylaxis/swelling Drug Allergy Jul, Active ENCOUNTERS Encounter Location Date Diagnosis [facility] [id number] [place] [address] 32619- 4464 January, [facility] [id number] [place] [address] 63462- 5148 January, [facility] [id number] [place] [address] 23555- 5037 Nov, [facility] [id number] [place] [address] 29216- 3940 Nov, [facility] [id number] [place] [address] 00809- 3468 Oct, Essential hypertension I10 ; Angioedema T78.3XXA and Benign prostatic hyperplasia with lower urinary tract symptoms, symptom details unspecified N40.1 [facility] [id number] [place] [address] 73781- 0001 Oct, [facility] [id number] [place] [address] [id number] Sep, Dental caries K02.9 [facility] [id number] [place] [address] 54366- 1518 Jul, [facility] [id number] [place] [address] [id number] Jul, Dental examination Z01.20 [facility] [id number] [place] [address] 49962- 9923 Jul, [facility] [address] 69215- 8895 Jun, [facility] [id number] [place] [address] 48292- 5427 May, Bronchitis J40 [facility] [address] 85260- 4765 Apr, Obstructive sleep apnea G47.33 and Angioedema T78.3XXA [facility] [address] 54234- 0151 January, Low back pain M54.5 [facility] [id number] [place] [address] 77470- 7363 18 Dec, 2016 Low back pain M54.5 [facility] [id number] [place] [address] 53384- 3299 10 Dec, 2016 Essential hypertension I10 [facility] [id number] [place] [address] 59330- 6315 07 Dec, 2016 [facility] [id number] [place] [address] 37627 -1155 16 Jul, 2016 Angioedema T78.3XXA [facility] [id number] [place] [address] 52127- 0800 14 Jul, 2016 [facility] [id number] [place] [address] 78878- 3327 08 Jul, 2016 Angioedema T78.3XXA [facility] [id number] [place] [address] 42117- 5992 Jul, [facility] [id number] [place] [address] 98866 -4454 May, Acute pain of right knee M25.561 [facility] [id number] [place] [address] 45095 -5191 May, Bug bite, initial encounter W57.XXXA [facility] [address] 19785- 1316 January, Sleep apnea, unspecified type G47.30 [facility] [address] 41600- 9703 January, Sleep apnea, unspecified type G47.30 [facility] [id number] [place] [address] 79730- 3658 January, [facility] [id number] [place] [address] 62218- 6280 January, [facility] [id number] [place] [address] 67190- 5993 Dec, [facility] [address] 18612- 6327 Nov, Angioedema T78.3XXA [facility] [id number] [place] [address] 25093- 0310 Oct, [facility] [id number] [place] [address] 35796- 4524 Oct, [facility] [id number] [place] [address] 48090- 2290 Sep, [facility] [address] 975051- 8551 Sep, Angioedema T78.3XXA [facility] [id number] [place] [address] 16194- 6596 Sep, [facility] [address] 23746- 4849 Aug, Angioedema T78.3XXA [facility] [address] [address] 2546 Aug, [facility] [address] [id number] [address] 2546 May, 2014 [facility] [id number] [place] [address] 16713 2546 May, 2014 [facility] [id number] [place] [address] 84616 2546 May, 2014 Angioedema 995.1 [facility] [id number] [place] [address], [place] [address] 2546 May, 2014 [facility] [id number] [place] [address] 59586 2542 May, 2014 [facility] [id number] [place] [address] 36921 254 May, Angioedema 995.1 [facility] [address] [address]- 4552 Mar, [facility] [address] [place] [address]- 2637 Mar, [facility] [address] [place] [address]- 5396 Mar, [facility] [address] [id number] [address] 2546 Mar, [facility] [address] [id number] [address] 2548 Feb, [facility] [address] [place] [address] 2546 Feb, [facility] [address] [id number] [address]- 9316 Dec, [facility] [address] [place] [address]- 8260 14 Dec, 2014 [facility] [place] [facility] [address] [id number] [place] [address]- 8092 Dec, [facility] [place] [facility] [address] [id number] [place] [address]- 5149 Oct, [facility] [place] [facility] [address] [facility] [id number] [place] [address]- 0295 Oct, [facility] [place] [facility] [address] [id number] [place] [address]- 2095 Sep, [facility] [place] [facility] [address] [id number] [place] [address]- 3716 Sep, [facility] [place] [facility] [address] [id number] [place] [address]- 8365 Aug, [facility] [place] [facility] [address] [id number] [place] [address]- 2160 Aug, [facility] [place] [facility] [address] [id number] [place] [address]- 4895 Aug, [facility] [place] [facility] [address] [facility] [id number] [place] [address]- 3700 Aug, [facility] [place] [facility] [address] [facility] [id number] [place] [address]- 0172 Aug, [facility] [place] [facility] [address] [id number] [address]- 9839 Jul, [facility] [place] [facility] [address] [id number], [place] [address]- 2104 Jul, [facility] [place] [facility] [address] [id number] [place] [address]- 5644 Jul, [facility] [place] [facility] [address] [id number] [place] [address]- 1983 Jul, [facility] [place] [facility] [address] [facility] [id number] [place] [address]- 7771 Jun, [facility] [place] [facility] [address] [id number] [place] [address]- 7726 Jun, [facility] [place] [facility] [address] [id number] [place] [address]- 2792 Jun, [facility] [place] [facility] [address] [id number] [place] [address]- 4386 Jun, [facility] [place] [facility] [address] [id number] [place] [address]- 7120 May, [facility] [place] [facility] [address] [id number] [place] [address]- 5715 12 May, 2013 [facility] [place] [facility] [address] [id number] [place] [address]- 2182 May, [facility] [place] [facility] [address] [id number] [place] [address]- 5495 May, [facility] [place] [facility] [address] [id number] [place] [address]- 3751 May, [facility] [place] [facility] [address] [id number] [place] [address]- 4730 May, [facility] [place] [facility] [address] [id number] [place] [address]- 2461 Mar, [facility] [place] [facility] [address] [id number] [place] [address]- 6822 Mar, [facility] [place] [facility] [address] [id number] [place] [address]- 2489 Feb, [facility] [place] [facility] [address] [id number] [place] [address]- 6107 Feb, [facility] [place] [facility] [address] [id number] [place] [address]- 3055 Feb, [facility] [place] [facility] [address] [id number] [place] [address]- 2732 Feb, [facility] [place] [facility] [address] [id number] [place] [address]- 3916 January, [facility] [address] [id number] [place] [address]- 2101 January, [facility] [place] [facility] [address] [id number] [place] [address]- 0019 January, [facility] [place] [facility] [address] [id number] [place] [address]- 8925 January, [facility] [place] [facility] [address] [id number] [place] [address]- 8202 January, [facility] [place] [facility] [address] [id number] [place] [address]- 3013 January, [facility] [place] [facility] [address] [id number] [place] [address]- 0762 January, [facility] [place] [facility] [address] [id number] [place] [address]- 5105 January, [facility] [place] [facility] [address] [id number] [place] [address]- 9485 Dec, [facility] [place] [facility] [address] [id number] [place] [address]- 4224 Dec, [facility] [place] [facility] [address] [id number] [place] [address]- 9592 Dec, [facility] [place] [facility] [address] [id number] [place] [address]- 1054 Dec, [facility] [place] [facility] [address] [id number] [place] [address]- 7402 Dec, [facility] [place] [facility] [address] [id number] [place] [address]- 9832 Dec, [facility] [place] [facility] [address] [id number] [place] [address]- 0632 Dec, [facility] [place] [facility] [address] [id number] [place] [address]- 0530 Dec, [facility] [place] [facility] [address] [id number] [place] [address]- 4695 07 Dec, 2013 [facility] [place] [facility] [address] [id number] [place] [address]- 7174 Dec, [facility] [place] [facility] [address] [id number] [place] 3663 Dec, [facility] [place] [facility] [address] [id number] [place] [address]- 6550 Dec, [facility] [place] [facility] [address] [id number] [place] [address]- 8770 Dec, [facility] [place] [facility] [address] [id number] [place] [address]- 2196 Dec, [facility] [place] [facility] [address] [id number] [place] [address]- 0455 Dec, [facility] [place] [facility] [address] [id number] [place] [address]- 6733 Dec, [facility] [place] [facility] [address] [id number] [place] [address]- 9759 Nov, [facility] [place] [facility] [address] [id number] [place] [address]- 2142 Nov, [facility] [place] [facility] [address] [id number] [place] [address]- 5255 Nov, [facility] [place] [facility] [address] [id number] [place] [address]- 0591 Nov, [facility] [place] [facility] [address] [id number] [place] [address]- 0593 Nov, [facility] [place] [facility] [address] [id number] [place] [address]- 4967 Nov, [facility] [place] [facility] [address] [id number] [place] [address]- 5393 05 Nov, 2013 [facility] [place] [facility] [address] [id number] [place] [address]- 3259 05 Nov, 2013 [facility] [place] [facility] [address] [id number] [place] [address]- 1872 Oct, [facility] [place] [facility] [address] [id number] [place] [address]- 0106 Oct, [facility] [place] [facility] [address] [id number] [place] [address]- 2088 Oct, [facility] [place] [facility] [address] [id number] [place] [address]- 7847 Oct, [facility] [place] [facility] [address] [id number] [place] [address]- 0451 Oct, [facility] [place] [facility] [address] [id number] [place] [address]- 3303 Oct, [facility] [place] [facility] [address] [id number] [place] [address]- 9166 Oct, [facility] [place] [facility] [address] [id number] [place] [address]- 0583 Oct, [facility] [place] [facility] [address] [id number] [place] [address]- 5960 Oct, [facility] [place] [facility] [address] [id number] [place] [address]- 8620 Oct, [facility] [place] [facility] [address] [id number] [place] [address]- 4992 Oct, [facility] [place] [facility] [address] [id number] [place] [address]- 2542 Oct, [facility] [place] [facility] [address] [id number] [place] [address]- 4386 Sep, [facility] [place] [facility] [address] [id number] [place] [address]- 6117 Sep, [facility] [place] [facility] [address] [id number] [place] [address]- 4777 Sep, [facility] [place] [facility] [address] [id number] [place] [address]- 3046 Sep, [facility] [address] [id number] [place] [address]- 5129 Sep, [facility] [address] [id number] [place] [address]- 5767 Sep, [facility] [address] [id number] [place] [address]- 3900 Sep, [facility] [address] [id number] [place] [address]- 3526 Sep, [facility] [address] [id number] [place] [address]- 6557 Sep, [facility] [address] [id number] [place] [address]- 7797 Sep, [facility] [address] [id number] [place] [address]- 3466 Aug, [facility] [address] [id number] [place] [address]- 8183 30 Aug, 2013 [facility] [address] [id number] [place] [address]- 7526 Aug, [facility] [address] [id number] [place] [address]- 3936 Aug, [facility] [address] [id number] [place] [address]- 0212 Aug, [facility] [address] [id number] [place] [address]- 9311 27 Aug, 2013 [facility] [place] [facility] [address] [id number] [place] [address]- 0526 14 Aug, 2013 [facility] [place] [facility] [address] [id number] [place] [address]- 2978 14 Aug, 2013 [facility] [address] [id number] [place] [address]- 2749 Jul, [facility] [place] [facility] [address] [id number] [place] [address]- 1541 Jul, [facility] [place] [facility] [address] [id number] [place] [address]- 3865 Jul, [facility] [place] [facility] [address] [id number] [place] [address]- 6577 Jul, [facility] [place] [facility] [address] [id number] [place] [address]- 7487 Jul, [facility] [place] [facility] [address] [id number] [place] [address]- 6997 Jul, [facility] [place] [facility] [address] [id number] [place] [address]- 2018 Jul, [facility] [place] [facility] [address] [id number] [place] [address]- 2786 Jul, [facility] [place] [facility] [address] [id number], [place] [address]- 2754 Jun, [facility] [place] [facility] [address] [id number] [place] [address]- 1878 Jun, [facility] [place] [facility] [address] [id number], [place] [address]- 9129 Jun, [facility] [place] [facility] [address] [id number], [place] [address]- 9158 Jun, [facility] [place] [facility] [address] [id number], [place] [address]- 5353 Jun, [facility] [place] [facility] [address] [id number], [place] [address]- 6608 Jun, [facility] [place] [facility] [address] [id number], [place] [address]- 8315 Jun, [facility] [place] [facility] [address] [id number], [place] [address]- 9078 Jun, [facility] [place] [facility] [address] [id number], [place] [address]- 1764 Jun, [facility] [place] [facility] [address] [id number] [place] [address]- 2246 Jun, [facility] [place] [facility] [address] [id number] [place] 5880 Jun, [facility] [place] [facility] [address] [id number] [place] [address]- 6716 Jun, [facility] [place] [facility] [address] [id number] [place] [address]- 9469 Jun, [facility] [place] [facility] [address] [id number] [place] [address]- 0361 Jun, [facility] [place] [facility] [address] [id number] [place] [address]- 9361 Jun, [facility] [place] [facility] [address] [id number] [place] [address]- 5911 Jun, [facility] [place] [facility] [address] [id number] [place] [address]- 5235 Jun, [facility] [place] [facility] [address] [id number] [place] [address]- 6796 Jun, [facility] [place] [facility] [address] [id number] [place] [address]- 3753 May, [facility] [place] [facility] [address] [id number] [place] [address]- 4237 May, [facility] [place] [facility] [address] [id number] [place] [address]- 6402 May, [facility] [place] [facility] [address] [id number] [place] [address]- 1171 Apr, [facility] [place] [facility] [address] [id number] [place] [address]- 9831 Apr, [facility] [place] [facility] [address] [id number] [place] [address]- 8535 Apr, [facility] [place] [facility] [address] [id number] [place] [address]- 9151 Apr, [facility] [address] [id number] [place] [address]- 5453 Apr, [facility] [place] [facility] [address] [id number] [place] [address]- 6696 Apr, [facility] [address] [id number] [place] [address]- 6123 Mar, [facility] [address] [id number] [place] [address]- 2631 Mar, [facility] [address] [id number] [place] [address]- 8366 Mar, [facility] [address] [id number] [place] [address]- 1753 Feb, [facility] [address] [id number] [place] [address]- 4163 Feb, [facility] [address] [id number] [place] [address]- 0107 Feb, [facility] [address] [id number] [place] [address]- 3467 Feb, [facility] [address] [id number] [place] [address]- 0867 January, [facility] [place] [facility] [address] [id number] [place] [address]- 5099 January, [facility] [address] [id number] [place] [address]- 5790 Dec, [facility] [place] [facility] [address] [id number] [place] [address]- 8803 Dec, [facility] [place] [facility] [address] [id number] [place] [address] Dec, [facility] [place] [facility] [address] [id number] [place] [address] Dec, [facility] [address] [id number] [place] [address] Dec, [facility] [place] [facility] [address] [id number] [place] [address] Nov, [facility] [place] [facility] [address] [id number] [place] [address] Nov, [facility] [place] [facility] [address] [id number] [place] [address] Nov, [facility] [place] [facility] [address] [id number] [place] [address] Nov, [facility] [place] [facility] [address] [id number] [place] [address] Nov, [facility] [place] [facility] [address] [id number] [place] [address] Nov, [facility] [place] [facility] [address] [id number] [place] [address] Nov, [facility] [place] [facility] [address] [id number] [place] [address] Oct, [facility] [place] [facility] [address] [id number] [place] [address] Oct, [facility] [place] [facility] [address] [id number] [address] Oct, [facility] [place] [facility] [address] [id number], [place] [address] Oct, [facility] [place] [facility] [address] [id number] [place] [address] Sep, [facility] [place] [facility] [address] [id number] [place] [address] Sep, [facility] [place] [facility] [address] [id number], [place] [address] Sep, [facility] [place] [facility] [address] [id number] [place] [address] Aug, [facility] [address] [id number] [place] [address] Aug, [facility] [place] [facility] [address] [id number] [place] [address] Aug, [facility] [address] [id number] [place] [address] Aug, [facility] [place] [facility] [address] [id number] [place] [address] Aug, [facility] [address] [id number] [place] [address] Aug, [facility] [place] [facility] [address] [id number] [place] [address] Jul, [facility] [address] [id number] [place] [address] Jul, [facility] [address] [id number] [place] [address] Jul, [facility] [place] [facility] [address] [id number] [place] [address] Jul, [facility] [address] [id number] [place] [address] Jun, [facility] [place] [facility] [address] [id number] [place] [address] Jun, [facility] [place] [facility] [address] [id number] [place] [address] Apr, [facility] [place] [facility] [address] [id number] [place] [address] Apr, [facility] [place] [facility] [address] [id number] [place] [address] Apr, [facility] [place] [facility] [address] [id number] [place] [address] Apr, [facility] [place] [facility] [address] [id number] [place] [address] Mar, [facility] [place] [facility] [address] [id number] [place] [address] Mar, [facility] [place] [facility] [address] [id number] [place] [address] Mar, [facility] [place] [facility] [address] [id number] [place] [address] Mar, [facility] [place] [facility] [address] [id number] [place] [address] Mar, [facility] [place] [facility] [address] [id number] [place] [address] Mar, [facility] [place] [facility] [address] [id number] [place] [address] Mar, [facility] [place] [facility] [address] [id number] [place] [address] Mar, [facility] [place] [facility] [address] [id number] [place] [address] Feb, [facility] [place] [facility] [address] [id number] [place] [address] Dec, [facility] [place] [facility] [address] [id number] [place] [address] Nov, [facility] [place] [facility] [address] [id number] [place] [address] Oct, [facility] [place] [facility] [address] [id number] [place] [address] Sep, [facility] [place] [facility] [address] [id number] [place] [address] Aug, [facility] [place] [facility] [address] [id number] [place] [address] Aug, [facility] [place] [facility] [address] [id number], [place] [address] Aug, [facility] [address] [facility] [id number], [place] [address] Jul, [facility] [address] [facility] [id number], [place] [address] Jul, [facility] [address] [facility] [id number][place] [address] [address] Feb, [place] [address] [facility] [id number][place] [address] Sep, IMMUNIZATIONS No Known Immunizations SOCIAL HISTORY Never Assessed REASON FOR VISIT dionte PLAN OF CARE Activity Details Follow Up prn Reason:TE after med clearence is received VITAL SIGNS Height 72 in 2017-07-22 Blood pressure systolic 116 mmHg 2017-07-22 Blood pressure diastolic 60 mmHg 2017-07-22 MEDICATIONS Medication Instructions Dosage Frequency Start Date End Date Duration Status Nitroglycerin 0.4 mg 1 tablet by Sublingual route every 5 PRN chest pain ; NTE 3 tabs in 15 min Feb, Unknown Zyrtec Allergy 10 MG Orally Once a day 1 tablet as needed 24h Active Colace 100 MG Orally Once a day 1 capsule as needed 24h Unknown Tylenol Extra Strength 500 MG Orally BID 2 tablets as needed 12h Unknown Norvasc 5 MG Orally Once a day 1 tablet 24h Active Flomax 0.4 mg TAKE ONE CAPSULE BY MOUTH DAILY 30 Active C-PAP Machine Active Toprol XL 25 MG Orally Once a day 1 tablet 24h Active Fenofibrate 134 MG Orally Once a day 1 capsule with a meal 24h Active Aspirin 81 MG Orally Once a day 1 tablet 24h Active Isosorbide Mononitrate 30 MG Orally Once a day 1 tablet 24h Active Plavix 75 MG Orally Once a day 1 tablet 24h January, Active EPINEPHrine 0.3 MG/0.3ML as directed May, Unknown Imdur Active Zetia Active Fish Oil + D3 [id number] MG-UNIT Orally 2 times a day 1 capsule 12h Active RESULTS No Results PROCEDURES Procedure Date Ordered Result Body Site LTD ORAL EVALUATION - PROBLEM FOCUS Jul 22, 2017 INTRAORL-PERIAPICAL 1 FILM [id number] Jul 22, 2017 INSTRUCTIONS MEDICATIONS ADMINISTERED No Known Medications MEDICAL (GENERAL) HISTORY Type Description Date Medical History hypertension Medical History angioedema Surgical History cartoid Surgical History Heart cath 01/2016 Surgical History Heart Cath 06/24 Hospitalization History Allergic reaction to Amoxil. 10/2015
--- OUTSIDE RECORDS SUMMARY | 2018-04-22 15:19 | XMS REPORT | Continuity of Care Document ---
Author Author Formerly [facility] Address Unknown Phone Unavailable Allergies Active Description Code Type Severity Reaction Onset Reported/Identified Relationship to Patient Clinical Status Yes simvastatin [id number] Drug Allergy Unknown N/A 07/20/2008 Yes Zocor Drug Allergy N/A N/A 09/18/2010 Yes Zocor Drug Allergy 09/18/2010 Yes Imdur Drug Allergy N/A N/A 02/25/2011 Yes Imdur Drug Allergy 02/25/2011 Yes lisinopril [id number] Drug Allergy Unknown N/A 03/01/2014 Yes Uzzosrz-Gfj-Knt Reductase Inhibitor [id number] Drug Allergy Unknown N/A Yes amoxicillin [id number] Drug Allergy Severe TONGUE SWELLING 10/26/2015 Medications There is no data. Problems Date Dx Coded Attending Type Code Diagnosis Diagnosed By 09/18/2010 GILDARDO BAZZI DO 244.9 HYPOTHYROIDISM 09/18/2010 GILDARDO BAZZI DO 272.4 HYPERLIPIDEMIA 09/18/2010 GILDARDO BAZZI DO 401.9 HYPERTENSION (SYSTEMIC) 09/18/2010 GILDARDO BAZZI DO 414.00 CORONARY ARTERY DISEASE 09/18/2010 244.9 HYPOTHYROIDISM 09/18/2010 272.4 HYPERLIPIDEMIA 09/18/2010 401.9 HYPERTENSION ( SYSTEMIC) 09/18/2010 414.00 CORONARY ARTERY DISEASE 09/18/2010 MIKA DAVE MD 244.9 HYPOTHYROIDISM 09/18/2010 MIKA DAVE MD 272.4 HYPERLIPIDEMIA 09/18/2010 MIKA DAVE MD 401.9 HYPERTENSION (SYSTEMIC) 09/18/2010 MIKA DAVE MD 414.00 CORONARY ARTERY DISEASE 09/18/2010 244.9 HYPOTHYROIDISM 09/18/2010 272.4 HYPERLIPIDEMIA 09/18/2010 401.9 HYPERTENSION ( SYSTEMIC) 09/18/2010 414.00 CORONARY ARTERY DISEASE 09/18/2010 244.9 HYPOTHYROIDISM 09/18/2010 272.4 HYPERLIPIDEMIA 09/18/2010 401.9 HYPERTENSION ( SYSTEMIC) 09/18/2010 414.00 CORONARY ARTERY DISEASE 09/18/2010 KOURTNEY ADAMS, SERGIO Lorenzo 244.9 HYPOTHYROIDISM 09/18/2010 KOURTNEY ADAMS, SERGIO Lorenzo 272.4 HYPERLIPIDEMIA 09/18/2010 KOURTNEY ADAMS, SERGIO Lorenzo 401.9 HYPERTENSION (SYSTEMIC) 09/18/2010 KOURTNEY ADAMS, SERGIO Lorenzo 414.00 CORONARY ARTERY DISEASE 09/18/2010 BAZZI DO, GILDARDO K 244.9 HYPOTHYROIDISM 09/18/2010 BAZZI DO, GILDARDO K 272.4 HYPERLIPIDEMIA 09/18/2010 BAZZI DO, GILDARDO K 401.9 HYPERTENSION (SYSTEMIC) 09/18/2010 BAZZI DO, GILDARDO K 414.00 CORONARY ARTERY DISEASE 09/18/2010 BAZZI DO, GILDARDO K 244.9 HYPOTHYROIDISM 09/18/2010 BAZZI DO, GILDARDO K 272.4 HYPERLIPIDEMIA 09/18/2010 BAZZI DO, GILDARDO K 401.9 HYPERTENSION (SYSTEMIC) 09/18/2010 BAZZI DO, GILDARDO K 414.00 CORONARY ARTERY DISEASE 09/18/2010 BAZZI DO, GILDARDO K 244.9 HYPOTHYROIDISM 09/18/2010 BAZZI DO, GILDARDO K 272.4 HYPERLIPIDEMIA 09/18/2010 BAZZI DO, GILDARDO K 401.9 HYPERTENSION (SYSTEMIC) 09/18/2010 BAZZI DO, GILDARDO K 414.00 CORONARY ARTERY DISEASE 09/18/2010 244.9 HYPOTHYROIDISM 09/18/2010 272.4 HYPERLIPIDEMIA 09/18/2010 401.9 HYPERTENSION ( SYSTEMIC) 09/18/2010 414.00 CORONARY ARTERY DISEASE 09/18/2010 244.9 HYPOTHYROIDISM 09/18/2010 272.4 HYPERLIPIDEMIA 09/18/2010 401.9 HYPERTENSION ( SYSTEMIC) 09/18/2010 414.00 CORONARY ARTERY DISEASE 09/18/2010 244.9 HYPOTHYROIDISM 09/18/2010 272.4 HYPERLIPIDEMIA 09/18/2010 401.9 HYPERTENSION ( SYSTEMIC) 09/18/2010 414.00 CORONARY ARTERY DISEASE 09/18/2010 244.9 HYPOTHYROIDISM 09/18/2010 272.4 HYPERLIPIDEMIA 09/18/2010 401.9 HYPERTENSION ( SYSTEMIC) 09/18/2010 414.00 CORONARY ARTERY DISEASE 09/18/2010 244.9 HYPOTHYROIDISM 09/18/2010 272.4 HYPERLIPIDEMIA 09/18/2010 401.9 HYPERTENSION ( SYSTEMIC) 09/18/2010 414.00 CORONARY ARTERY DISEASE 09/18/2010 244.9 HYPOTHYROIDISM 09/18/2010 272.4 HYPERLIPIDEMIA 09/18/2010 401.9 HYPERTENSION ( SYSTEMIC) 09/18/2010 414.00 CORONARY ARTERY DISEASE 09/18/2010 BAZZI DO, GILDARDO K 244.9 HYPOTHYROIDISM 09/18/2010 BAZZI DO, GILDARDO K 272.4 HYPERLIPIDEMIA 09/18/2010 BAZZI DO, GILDARDO K 401.9 HYPERTENSION (SYSTEMIC) 09/18/2010 BAZZI DO, GILDARDO K 414.00 CORONARY ARTERY DISEASE 09/18/2010 BAZZI DO, GILDARDO K 244.9 HYPOTHYROIDISM 09/18/2010 BAZZI DO, GILDARDO K 272.4 HYPERLIPIDEMIA 09/18/2010 BAZZI DO, GILDARDO K 401.9 HYPERTENSION (SYSTEMIC) 09/18/2010 BAZZI DO, GILDARDO K 414.00 CORONARY ARTERY DISEASE 09/18/2010 MIKA DAVE MD 244.9 HYPOTHYROIDISM 09/18/2010 MIKA DAVE MD 272.4 HYPERLIPIDEMIA 09/18/2010 MIKA DAVE MD 401.9 HYPERTENSION (SYSTEMIC) 09/18/2010 MIKA DAVE MD 414.00 CORONARY ARTERY DISEASE 09/18/2010 BRIDGETT ROLL WINDER, ZUNILDA S 244.9 HYPOTHYROIDISM 09/18/2010 BRIDGETT ROLL WINDER, ZUNILDA S 272.4 HYPERLIPIDEMIA 09/18/2010 BRIDGETT ROLL WINDER, ZUNILDA S 401.9 HYPERTENSION (SYSTEMIC) 09/18/2010 BRIDGETT ROLL WINDER, ZUNILDA S 414.00 CORONARY ARTERY DISEASE 09/18/2010 BRIDGETT ROLL WINDER, ZUNILDA S 244.9 HYPOTHYROIDISM 09/18/2010 BRIDGETT ROLL WINDER, ZUNILDA S 272.4 HYPERLIPIDEMIA 09/18/2010 BRIDGETT ROLL WINDER, ZUNILDA S 401.9 HYPERTENSION (SYSTEMIC) 09/18/2010 BRIDGETT ROLL WINDER, ZUNILDA S 414.00 CORONARY ARTERY DISEASE 09/18/2010 BAZZI DO, GILDARDO K 244.9 HYPOTHYROIDISM 09/18/2010 BAZZI DO, GILDARDO K 272.4 HYPERLIPIDEMIA 09/18/2010 BAZZI DO, GILDARDO K 401.9 HYPERTENSION (SYSTEMIC) 09/18/2010 BAZZI DO, GILDARDO K 414.00 CORONARY ARTERY DISEASE 09/18/2010 MIKA DAVE MD 244.9 HYPOTHYROIDISM 09/18/2010 MIKA DAVE MD 272.4 HYPERLIPIDEMIA 09/18/2010 MIKA DAVE MD 401.9 HYPERTENSION (SYSTEMIC) 09/18/2010 MIKA DAVE MD 414.00 CORONARY ARTERY DISEASE 09/18/2010 MIKA DAVE MD 244.9 HYPOTHYROIDISM 09/18/2010 MIKA DAVE MD 272.4 HYPERLIPIDEMIA 09/18/2010 IMKA DAVE MD 401.9 HYPERTENSION (SYSTEMIC) 09/18/2010 MIKA DAVE MD 414.00 CORONARY ARTERY DISEASE 09/18/2010 BAZZI DO, GILDARDO K 244.9 HYPOTHYROIDISM 09/18/2010 BAZZI DO, GILDARDO K 272.4 HYPERLIPIDEMIA 09/18/2010 BAZZI DO, GILDARDO K 401.9 HYPERTENSION (SYSTEMIC) 09/18/2010 BAZZI DO, GILDARDO K 414.00 CORONARY ARTERY DISEASE 09/18/2010 BAZZI DO, GILDARDO K 244.9 HYPOTHYROIDISM 09/18/2010 BAZZI DO, GILDARDO K 272.4 HYPERLIPIDEMIA 09/18/2010 BAZZI DO, GILDARDO K 401.9 HYPERTENSION (SYSTEMIC) 09/18/2010 BAZZI DO, GILDARDO K 414.00 CORONARY ARTERY DISEASE 09/18/2010 MIKA DAVE MD 244.9 HYPOTHYROIDISM 09/18/2010 MIKA DAVE MD 272.4 HYPERLIPIDEMIA 09/18/2010 MIKA DAVE MD 401.9 HYPERTENSION (SYSTEMIC) 09/18/2010 MIKA DAVE MD 414.00 CORONARY ARTERY DISEASE 09/18/2010 MIKA DAVE MD 244.9 HYPOTHYROIDISM 09/18/2010 MIKA DAVE MD 272.4 HYPERLIPIDEMIA 09/18/2010 MIKA DAVE MD 401.9 HYPERTENSION (SYSTEMIC) 09/18/2010 MIKA DAVE MD 414.00 CORONARY ARTERY DISEASE 09/18/2010 244.9 HYPOTHYROIDISM 09/18/2010 272.4 HYPERLIPIDEMIA 09/18/2010 401.9 HYPERTENSION ( SYSTEMIC) 09/18/2010 414.00 CORONARY ARTERY DISEASE 09/18/2010 BAZZI DO, GILDARDO K 244.9 HYPOTHYROIDISM 09/18/2010 BAZZI DO, GILDARDO K 272.4 HYPERLIPIDEMIA 09/18/2010 BAZZI DO, GILDARDO K 401.9 HYPERTENSION (SYSTEMIC) 09/18/2010 BAZZI DO, GILDARDO K 414.00 CORONARY ARTERY DISEASE 09/18/2010 BAZZI DO, GILDARDO K 244.9 HYPOTHYROIDISM 09/18/2010 BAZZI DO, GILDARDO K 272.4 HYPERLIPIDEMIA 09/18/2010 BAZZI DO, GILDARDO K 401.9 HYPERTENSION (SYSTEMIC) 09/18/2010 BAZZI DO, GILDARDO K 414.00 CORONARY ARTERY DISEASE 09/18/2010 MIKA DAVE MD 244.9 HYPOTHYROIDISM 09/18/2010 MIKA DAVE MD 272.4 HYPERLIPIDEMIA 09/18/2010 MIKA DAVE MD 401.9 HYPERTENSION (SYSTEMIC) 09/18/2010 MIKA DAVE MD 414.00 CORONARY ARTERY DISEASE 11/26/2010 BAZZI DO, GILDARDO K 786.50 Chest Pain 11/26/2010 786.50 Chest Pain 11/26/2010 MIKA DAVE MD 786.50 Chest Pain 11/26/2010 786.50 Chest Pain 11/26/2010 786.50 Chest Pain 11/26/2010 KOURTNEY ADAMS, SERGIO Lorenzo 786.50 Chest Pain 11/26/2010 BAZZI DO, GILDARDO K 786.50 Chest Pain 11/26/2010 BAZZI DO, GILDARDO K 786.50 Chest Pain 11/26/2010 BAZZI DO, GILDARDO K 786.50 Chest Pain 11/26/2010 786.50 Chest Pain 11/26/2010 786.50 Chest Pain 11/26/2010 786.50 Chest Pain 11/26/2010 786.50 Chest Pain 11/26/2010 786.50 Chest Pain 11/26/2010 786.50 Chest Pain 11/26/2010 BAZZI DO, GILDARDO K 786.50 Chest Pain 11/26/2010 BAZZI DO, GILDARDO K 786.50 Chest Pain 11/26/2010 MIKA DAVE MD 786.50 Chest Pain 11/26/2010 HUGO URIAS APRNA S 786.50 Chest Pain 11/26/2010 KELLIE URIAS APRNNDA S 786.50 Chest Pain 11/26/2010 BAZZI DO, GILDARDO K 786.50 Chest Pain 11/26/2010 MIKA DAVE MD 786.50 Chest Pain 11/26/2010 MIKA DAVE MD 786.50 Chest Pain 11/26/2010 BAZZI DO, GILDARDO K 786.50 Chest Pain 11/26/2010 BAZZI DO, GILDARDO K 786.50 Chest Pain 11/26/2010 MIKA DAVE MD 786.50 Chest Pain 11/26/2010 MIKA DAVE MD 786.50 Chest Pain 11/26/2010 786.50 Chest Pain 11/26/2010 BAZZI DO, GILDARDO K 786.50 Chest Pain 11/26/2010 BAZZI DO, GILDARDO K 786.50 Chest Pain 11/26/2010 MIKA DAVE MD 786.50 Chest Pain 11/28/2010 Ot 272.4 11/28/2010 Ot 278.00 11/28/2010 Ot 401.9 11/28/2010 Ot 414.01 11/28/2010 Ot 780.57 11/28/2010 Ot 790.29 11/28/2010 Ot V12.2 11/28/2010 Ot V45.82 11/28/2010 Ot V85.39 12/06/2010 GILDARDO BAZZI DO 786.09 Difficulty Breathing (dyspnea) 12/06/2010 786.09 Difficulty Breathing (dyspnea) 12/06/2010 MIKA DAVE MD 786.09 Difficulty Breathing (dyspnea) 12/06/2010 786.09 Difficulty Breathing (dyspnea) 12/06/2010 786.09 Difficulty Breathing (dyspnea) 12/06/2010 SERGIO OCONNELL MD 786.09 Difficulty Breathing (dyspnea) 12/06/2010 GILDARDO BAZZI DO 786.09 Difficulty Breathing (dyspnea) 12/06/2010 GILDARDO BAZZI DO K 786.09 Difficulty Breathing (dyspnea) 12/06/2010 GILDARDO BAZZI DO K 786.09 Difficulty Breathing (dyspnea) 12/06/2010 786.09 Difficulty Breathing (dyspnea) 12/06/2010 786.09 Difficulty Breathing (dyspnea) 12/06/2010 786.09 Difficulty Breathing (dyspnea) 12/06/2010 786.09 Difficulty Breathing (dyspnea) 12/06/2010 786.09 Difficulty Breathing (dyspnea) 12/06/2010 786.09 Difficulty Breathing (dyspnea) 12/06/2010 GILDARDO BAZZI DO K 786.09 Difficulty Breathing (dyspnea) 12/06/2010 GILDARDO BAZZI DO 786.09 Difficulty Breathing (dyspnea) 12/06/2010 MIKA DAVE MD 786.09 Difficulty Breathing (dyspnea) 12/06/2010 ZUNILDA URIAS APRN S 786.09 Difficulty Breathing (dyspnea) 12/06/2010 ZUNILDA URIAS APRN 786.09 Difficulty Breathing (dyspnea) 12/06/2010 GILDARDO BAZZI DO K 786.09 Difficulty Breathing (dyspnea) 12/06/2010 MIKA DAVE MD 786.09 Difficulty Breathing (dyspnea) 12/06/2010 MIKA DAVE MD 786.09 Difficulty Breathing (dyspnea) 12/06/2010 BAZZI DO, GILDARDO K 786.09 Difficulty Breathing (dyspnea) 12/06/2010 BAZZI , GILDARDO K 786.09 Difficulty Breathing (dyspnea) 12/06/2010 MKIA DAVE MD 786.09 Difficulty Breathing (dyspnea) 12/06/2010 MIKA DAVE MD 786.09 Difficulty Breathing (dyspnea) 12/06/2010 786.09 Difficulty Breathing (dyspnea) 12/06/2010 GERMAN BAZZI DOA K 786.09 Difficulty Breathing (dyspnea) 12/06/2010 BAZZI GERMAN RAMIREZA K 786.09 Difficulty Breathing (dyspnea) 12/06/2010 MIKA DAVE MD 786.09 Difficulty Breathing (dyspnea) 12/24/2010 BAZZI DO GILDARDO K 790.29 Other Abnormal Glucose 12/24/2010 790.29 Other Abnormal Glucose 12/24/2010 MIKA DAVE MD 790.29 Other Abnormal Glucose 12/24/2010 790.29 Other Abnormal Glucose 12/24/2010 790.29 Other Abnormal Glucose 12/24/2010 KOURTNEY ADAMS, SERGIO Lorenzo 790.29 Other Abnormal Glucose 12/24/2010 BAZZI DO GILDARDO K 790.29 Other Abnormal Glucose 12/24/2010 BAZZI DO GILDARDO K 790.29 Other Abnormal Glucose 12/24/2010 BAZZI DO GILDARDO K 790.29 Other Abnormal Glucose 12/24/2010 790.29 Other Abnormal Glucose 12/24/2010 790.29 Other Abnormal Glucose 12/24/2010 790.29 Other Abnormal Glucose 12/24/2010 790.29 Other Abnormal Glucose 12/24/2010 790.29 Other Abnormal Glucose 12/24/2010 790.29 Other Abnormal Glucose 12/24/2010 ROSE MARY RAMIREZ GILDARDO K 790.29 Other Abnormal Glucose 12/24/2010 BAZZI DO GILDARDO K 790.29 Other Abnormal Glucose 12/24/2010 MIKA DAVE MD 790.29 Other Abnormal Glucose 12/24/2010 ZUNILDA URIAS APRN S 790.29 Other Abnormal Glucose 12/24/2010 ZUNILDA URIAS APRN S 790.29 Other Abnormal Glucose 12/24/2010 ROSE MARY RAMIREZ GILDARDO K 790.29 Other Abnormal Glucose 12/24/2010 MIKA DAVE MD 790.29 Other Abnormal Glucose 12/24/2010 MIKA DAVE MD 790.29 Other Abnormal Glucose 12/24/2010 GILDARDO BAZZI DO 790.29 Other Abnormal Glucose 12/24/2010 GILDARDO BAZZI DO K 790.29 Other Abnormal Glucose 12/24/2010 MIKA DAVE MD 790.29 Other Abnormal Glucose 12/24/2010 MIKA DAVE MD 790.29 Other Abnormal Glucose 12/24/2010 790.29 Other Abnormal Glucose 12/24/2010 GILDARDO BAZZI DO K 790.29 Other Abnormal Glucose 12/24/2010 GILDARDO BAZZI DO 790.29 Other Abnormal Glucose 12/24/2010 MIKA DAVE MD 790.29 Other Abnormal Glucose 01/20/2011 Ot 995.1 04/30/2011 Ot 995.1 ANGIONEUROTIC EDEMA 05/03/2011 GILDARDO BAZZI DO K 600.00 HYPERTROPHY (BENIGN) OF PROSTATE WITHOUT URINARY OBSTRUCTION AND OTHER LOWER URINARY TRACT SYMPTOMS (LUTS) 05/03/2011 600.00 HYPERTROPHY ( BENIGN) OF PROSTATE WITHOUT URINARY OBSTRUCTION AND OTHER LOWER URINARY TRACT SYMPTOMS (LUTS) 05/03/2011 MIKA DAVE MD 600.00 HYPERTROPHY (BENIGN) OF PROSTATE WITHOUT URINARY OBSTRUCTION AND OTHER LOWER URINARY TRACT SYMPTOMS (LUTS) 05/03/2011 600.00 HYPERTROPHY ( BENIGN) OF PROSTATE WITHOUT URINARY OBSTRUCTION AND OTHER LOWER URINARY TRACT SYMPTOMS (LUTS) 05/03/2011 600.00 HYPERTROPHY ( BENIGN) OF PROSTATE WITHOUT URINARY OBSTRUCTION AND OTHER LOWER URINARY TRACT SYMPTOMS (LUTS) 05/03/2011 KOURTNEY ADAMS, SERGIO Lorenzo 600.00 HYPERTROPHY (BENIGN) OF PROSTATE WITHOUT URINARY OBSTRUCTION AND OTHER LOWER URINARY TRACT SYMPTOMS (LUTS) 05/03/2011 GILDARDO BAZZI DO K 600.00 HYPERTROPHY (BENIGN) OF PROSTATE WITHOUT URINARY OBSTRUCTION AND OTHER LOWER URINARY TRACT SYMPTOMS (LUTS) 05/03/2011 GERMAN BAZZI DOA K 600.00 HYPERTROPHY (BENIGN) OF PROSTATE WITHOUT URINARY OBSTRUCTION AND OTHER LOWER URINARY TRACT SYMPTOMS (LUTS) 05/03/2011 GERMAN BAZZI DOA K 600.00 HYPERTROPHY (BENIGN) OF PROSTATE WITHOUT URINARY OBSTRUCTION AND OTHER LOWER URINARY TRACT SYMPTOMS (LUTS) 05/03/2011 600.00 HYPERTROPHY ( BENIGN) OF PROSTATE WITHOUT URINARY OBSTRUCTION AND OTHER LOWER URINARY TRACT SYMPTOMS (LUTS) 05/03/2011 600.00 HYPERTROPHY ( BENIGN) OF PROSTATE WITHOUT URINARY OBSTRUCTION AND OTHER LOWER URINARY TRACT SYMPTOMS (LUTS) 05/03/2011 600.00 HYPERTROPHY ( BENIGN) OF PROSTATE WITHOUT URINARY OBSTRUCTION AND OTHER LOWER URINARY TRACT SYMPTOMS (LUTS) 05/03/2011 600.00 HYPERTROPHY ( BENIGN) OF PROSTATE WITHOUT URINARY OBSTRUCTION AND OTHER LOWER URINARY TRACT SYMPTOMS (LUTS) 05/03/2011 600.00 HYPERTROPHY ( BENIGN) OF PROSTATE WITHOUT URINARY OBSTRUCTION AND OTHER LOWER URINARY TRACT SYMPTOMS (LUTS) 05/03/2011 600.00 HYPERTROPHY ( BENIGN) OF PROSTATE WITHOUT URINARY OBSTRUCTION AND OTHER LOWER URINARY TRACT SYMPTOMS (LUTS) 05/03/2011 GILDARDO BAZZI DO K 600.00 HYPERTROPHY (BENIGN) OF PROSTATE WITHOUT URINARY OBSTRUCTION AND OTHER LOWER URINARY TRACT SYMPTOMS (LUTS) 05/03/2011 GERMAN BAZZI DOA K 600.00 HYPERTROPHY (BENIGN) OF PROSTATE WITHOUT URINARY OBSTRUCTION AND OTHER LOWER URINARY TRACT SYMPTOMS (LUTS) 05/03/2011 MIKA DAVE MD 600.00 HYPERTROPHY (BENIGN) OF PROSTATE WITHOUT URINARY OBSTRUCTION AND OTHER LOWER URINARY TRACT SYMPTOMS (LUTS) 05/03/2011 BRIDGETT BERNAL ZUNILDA S 600.00 HYPERTROPHY (BENIGN) OF PROSTATE WITHOUT URINARY OBSTRUCTION AND OTHER LOWER URINARY TRACT SYMPTOMS (LUTS) 05/03/2011 BRIDGETT BERNAL ZUNILDA S 600.00 HYPERTROPHY (BENIGN) OF PROSTATE WITHOUT URINARY OBSTRUCTION AND OTHER LOWER URINARY TRACT SYMPTOMS (LUTS) 05/03/2011 GILDARDO BAZZI DO K 600.00 HYPERTROPHY (BENIGN) OF PROSTATE WITHOUT URINARY OBSTRUCTION AND OTHER LOWER URINARY TRACT SYMPTOMS (LUTS) 05/03/2011 MIKA DAVE MD 600.00 HYPERTROPHY (BENIGN) OF PROSTATE WITHOUT URINARY OBSTRUCTION AND OTHER LOWER URINARY TRACT SYMPTOMS (LUTS) 05/03/2011 MIKA DAVE MD 600.00 HYPERTROPHY (BENIGN) OF PROSTATE WITHOUT URINARY OBSTRUCTION AND OTHER LOWER URINARY TRACT SYMPTOMS (LUTS) 05/03/2011 GILDARDO BAZZI DO K 600.00 HYPERTROPHY (BENIGN) OF PROSTATE WITHOUT URINARY OBSTRUCTION AND OTHER LOWER URINARY TRACT SYMPTOMS (LUTS) 05/03/2011 GILDARDO BAZZI DO K 600.00 HYPERTROPHY (BENIGN) OF PROSTATE WITHOUT URINARY OBSTRUCTION AND OTHER LOWER URINARY TRACT SYMPTOMS (LUTS) 05/03/2011 MIKA DAVE MD 600.00 HYPERTROPHY (BENIGN) OF PROSTATE WITHOUT URINARY OBSTRUCTION AND OTHER LOWER URINARY TRACT SYMPTOMS (LUTS) 05/03/2011 MIKA DAVE MD 600.00 HYPERTROPHY (BENIGN) OF PROSTATE WITHOUT URINARY OBSTRUCTION AND OTHER LOWER URINARY TRACT SYMPTOMS (LUTS) 05/03/2011 600.00 HYPERTROPHY ( BENIGN) OF PROSTATE WITHOUT URINARY OBSTRUCTION AND OTHER LOWER URINARY TRACT SYMPTOMS (LUTS) 05/03/2011 BAZZI DO, GILDARDO K 600.00 HYPERTROPHY (BENIGN) OF PROSTATE WITHOUT URINARY OBSTRUCTION AND OTHER LOWER URINARY TRACT SYMPTOMS (LUTS) 05/03/2011 BAZZI DO, GILDARDO K 600.00 HYPERTROPHY (BENIGN) OF PROSTATE WITHOUT URINARY OBSTRUCTION AND OTHER LOWER URINARY TRACT SYMPTOMS (LUTS) 05/03/2011 MIKA DAVE MD 600.00 HYPERTROPHY (BENIGN) OF PROSTATE WITHOUT URINARY OBSTRUCTION AND OTHER LOWER URINARY TRACT SYMPTOMS (LUTS) 07/10/2011 BAZZI DO, GILDARDO K 995.3 Allergy Unspecified Not Elsewhere Classified 07/10/2011 995.3 Allergy Unspecified Not Elsewhere Classified 07/10/2011 MIKA DAVE MD 995.3 Allergy Unspecified Not Elsewhere Classified 07/10/2011 995.3 Allergy Unspecified Not Elsewhere Classified 07/10/2011 995.3 Allergy Unspecified Not Elsewhere Classified 07/10/2011 SERGIO OCONNELL MD 995.3 Allergy Unspecified Not Elsewhere Classified 07/10/2011 BAZZI DO, GILDARDO K 995.3 Allergy Unspecified Not Elsewhere Classified 07/10/2011 BAZZI DO, GILDARDO K 995.3 Allergy Unspecified Not Elsewhere Classified 07/10/2011 BAZZI DO, GILDARDO K 995.3 Allergy Unspecified Not Elsewhere Classified 07/10/2011 995.3 Allergy Unspecified Not Elsewhere Classified 07/10/2011 995.3 Allergy Unspecified Not Elsewhere Classified 07/10/2011 995.3 Allergy Unspecified Not Elsewhere Classified 07/10/2011 995.3 Allergy Unspecified Not Elsewhere Classified 07/10/2011 995.3 Allergy Unspecified Not Elsewhere Classified 07/10/2011 995.3 Allergy Unspecified Not Elsewhere Classified 07/10/2011 BAZZI DO, GILDARDO K 995.3 Allergy Unspecified Not Elsewhere Classified 07/10/2011 BAZZI DO, GILDARDO K 995.3 Allergy Unspecified Not Elsewhere Classified 07/10/2011 MIKA DAVE MD 995.3 Allergy Unspecified Not Elsewhere Classified 07/10/2011 BRIDGETT ROLL WINDERKELLIEZUNILDA S 995.3 Allergy Unspecified Not Elsewhere Classified 07/10/2011 ZUNILDA URIAS APRN 995.3 Allergy Unspecified Not Elsewhere Classified 07/10/2011 BAZZI DO GILDARDO K 995.3 Allergy Unspecified Not Elsewhere Classified 07/10/2011 MIKA DAVE MD 995.3 Allergy Unspecified Not Elsewhere Classified 07/10/2011 MIKA DAVE MD 995.3 Allergy Unspecified Not Elsewhere Classified 07/10/2011 BAZZI DO GILDARDO K 995.3 Allergy Unspecified Not Elsewhere Classified 07/10/2011 BAZZI GERMAN RAMIREZA K 995.3 Allergy Unspecified Not Elsewhere Classified 07/10/2011 MIKA DAVE MD 995.3 Allergy Unspecified Not Elsewhere Classified 07/10/2011 MIKA DAVE MD 995.3 Allergy Unspecified Not Elsewhere Classified 07/10/2011 995.3 Allergy Unspecified Not Elsewhere Classified 07/10/2011 BAZZI DO GILDARDO K 995.3 Allergy Unspecified Not Elsewhere Classified 07/10/2011 BAZZI DO GILDARDO K 995.3 Allergy Unspecified Not Elsewhere Classified 07/10/2011 MIKA DAVE MD 995.3 Allergy Unspecified Not Elsewhere Classified 08/16/2011 BAZZI DO GILDARDO K 250.00 DIABETES MELLITUS TYPE 2 08/16/2011 250.00 DIABETES MELLITUS TYPE 2 08/16/2011 MIKA DAVE MD 250.00 DIABETES MELLITUS TYPE 2 08/16/2011 250.00 DIABETES MELLITUS TYPE 2 08/16/2011 250.00 DIABETES MELLITUS TYPE 2 08/16/2011 KOURTNEY ADAMS, SERGIO Lorenzo 250.00 DIABETES MELLITUS TYPE 2 08/16/2011 BAZZI DO GLIDARDO K 250.00 DIABETES MELLITUS TYPE 2 08/16/2011 BAZZI DO GILDARDO K 250.00 DIABETES MELLITUS TYPE 2 08/16/2011 BAZZI DO GILDARDO K 250.00 DIABETES MELLITUS TYPE 2 08/16/2011 250.00 DIABETES MELLITUS TYPE 2 08/16/2011 250.00 DIABETES MELLITUS TYPE 2 08/16/2011 250.00 DIABETES MELLITUS TYPE 2 08/16/2011 250.00 DIABETES MELLITUS TYPE 2 08/16/2011 250.00 DIABETES MELLITUS TYPE 2 08/16/2011 250.00 DIABETES MELLITUS TYPE 2 08/16/2011 BAZZI DO GILDARDO K 250.00 DIABETES MELLITUS TYPE 2 08/16/2011 BAZZI DO GILDARDO K 250.00 DIABETES MELLITUS TYPE 2 08/16/2011 MIKA DAVE MD 250.00 DIABETES MELLITUS TYPE 2 08/16/2011 ZUNILDA URIAS APRN S 250.00 DIABETES MELLITUS TYPE 2 08/16/2011 ZUNILDA URIAS APRN S 250.00 DIABETES MELLITUS TYPE 2 08/16/2011 BAZZI DO, GILDARDO K 250.00 DIABETES MELLITUS TYPE 2 08/16/2011 MIKA DAVE MD 250.00 DIABETES MELLITUS TYPE 2 08/16/2011 MIKA DAVE MD 250.00 DIABETES MELLITUS TYPE 2 08/16/2011 BAZZI DO, GILDARDO K 250.00 DIABETES MELLITUS TYPE 2 08/16/2011 BAZZI DO, GILDARDO K 250.00 DIABETES MELLITUS TYPE 2 08/16/2011 MIKA DAVE MD 250.00 DIABETES MELLITUS TYPE 2 08/16/2011 MIKA DAVE MD 250.00 DIABETES MELLITUS TYPE 2 08/16/2011 250.00 DIABETES MELLITUS TYPE 2 08/16/2011 BAZZI DO, GILDARDO K 250.00 DIABETES MELLITUS TYPE 2 08/16/2011 BAZZI DO, GILDARDO K 250.00 DIABETES MELLITUS TYPE 2 08/16/2011 MIKA DAVE MD 250.00 DIABETES MELLITUS TYPE 2 09/05/2011 BAZZI DO, GILDARDO K 995.1 ANGIONEUROTIC EDEMA NOT ELSEWHERE CLASSIFIED 09/05/2011 995.1 ANGIONEUROTIC EDEMA NOT ELSEWHERE CLASSIFIED 09/05/2011 MIKA DAVE MD 995.1 ANGIONEUROTIC EDEMA NOT ELSEWHERE CLASSIFIED 09/05/2011 995.1 ANGIONEUROTIC EDEMA NOT ELSEWHERE CLASSIFIED 09/05/2011 995.1 ANGIONEUROTIC EDEMA NOT ELSEWHERE CLASSIFIED 09/05/2011 KOURTNEY ADAMS, SERGIO Lorenzo 995.1 ANGIONEUROTIC EDEMA NOT ELSEWHERE CLASSIFIED 09/05/2011 BAZZI DO, GILDARDO K 995.1 ANGIONEUROTIC EDEMA NOT ELSEWHERE CLASSIFIED 09/05/2011 BAZZI DO, GILDARDO K 995.1 ANGIONEUROTIC EDEMA NOT ELSEWHERE CLASSIFIED 09/05/2011 BAZZI DO, GILDARDO K 995.1 ANGIONEUROTIC EDEMA NOT ELSEWHERE CLASSIFIED 09/05/2011 995.1 ANGIONEUROTIC EDEMA NOT ELSEWHERE CLASSIFIED 09/05/2011 995.1 ANGIONEUROTIC EDEMA NOT ELSEWHERE CLASSIFIED 09/05/2011 995.1 ANGIONEUROTIC EDEMA NOT ELSEWHERE CLASSIFIED 09/05/2011 995.1 ANGIONEUROTIC EDEMA NOT ELSEWHERE CLASSIFIED 09/05/2011 995.1 ANGIONEUROTIC EDEMA NOT ELSEWHERE CLASSIFIED 09/05/2011 995.1 ANGIONEUROTIC EDEMA NOT ELSEWHERE CLASSIFIED 09/05/2011 BAZZI DO GILDARDO K 995.1 ANGIONEUROTIC EDEMA NOT ELSEWHERE CLASSIFIED 09/05/2011 BAZZI DO GILADRDO K 995.1 ANGIONEUROTIC EDEMA NOT ELSEWHERE CLASSIFIED 09/05/2011 MIKA DAVE MD 995.1 ANGIONEUROTIC EDEMA NOT ELSEWHERE CLASSIFIED 09/05/2011 BRIDGETT ROLL WINDER, ZUNILDA S 995.1 ANGIONEUROTIC EDEMA NOT ELSEWHERE CLASSIFIED 09/05/2011 BRIDGETT BERNAL ZUNILDA S 995.1 ANGIONEUROTIC EDEMA NOT ELSEWHERE CLASSIFIED 09/05/2011 ROSE MARY RAMIREZ GILDARDO K 995.1 ANGIONEUROTIC EDEMA NOT ELSEWHERE CLASSIFIED 09/05/2011 MIKA DAVE MD 995.1 ANGIONEUROTIC EDEMA NOT ELSEWHERE CLASSIFIED 09/05/2011 MIKA DAVE MD 995.1 ANGIONEUROTIC EDEMA NOT ELSEWHERE CLASSIFIED 09/05/2011 BAZZI DO GILDARDO K 995.1 ANGIONEUROTIC EDEMA NOT ELSEWHERE CLASSIFIED 09/05/2011 BAZZI DO GILDARDO K 995.1 ANGIONEUROTIC EDEMA NOT ELSEWHERE CLASSIFIED 09/05/2011 MIKA DAVE MD 995.1 ANGIONEUROTIC EDEMA NOT ELSEWHERE CLASSIFIED 09/05/2011 MIKA DAVE MD 995.1 ANGIONEUROTIC EDEMA NOT ELSEWHERE CLASSIFIED 09/05/2011 995.1 ANGIONEUROTIC EDEMA NOT ELSEWHERE CLASSIFIED 09/05/2011 ROSE MARY RAMIREZ GILDARDO K 995.1 ANGIONEUROTIC EDEMA NOT ELSEWHERE CLASSIFIED 09/05/2011 ROSE MARY RAMIREZ GILDARDO K 995.1 ANGIONEUROTIC EDEMA NOT ELSEWHERE CLASSIFIED 09/05/2011 MIKA DAVE MD 995.1 ANGIONEUROTIC EDEMA NOT ELSEWHERE CLASSIFIED 03/05/2012 Ot 244.9 HYPOTHYROIDISM NOS 03/05/2012 Ot 272.4 HYPERLIPIDEMIA NEC/NOS 03/05/2012 Ot 278.00 OBESITY, NOS 03/05/2012 Ot 327.23 OBSTRUCTIVE SLEEP APNEA (ADULT) (PEDIATR 03/05/2012 Ot 397.0 TRICUSPID VALVE DISEASE 03/05/2012 Ot 401.9 HYPERTENSION NOS 03/05/2012 Ot 414.01 CORONARY ATHEROSCLEROSIS OF [place] CORON 03/05/2012 Ot 424.0 MITRAL VALVE DISORDER 03/05/2012 Ot 426.3 LEFT BB BLOCK NEC 03/05/2012 Ot 786.50 CHEST PAIN NOS 03/05/2012 Ot V15.82 HISTORY OF TOBACCO USE 03/05/2012 Ot V17.49 FAMILY HISTORY OF OTHER CARDIOVASCULAR D 03/05/2012 Ot V45.82 PERCUTANEOUS TRANSLUM CORON ANGIOPLASTY 03/05/2012 Ot V58.63 LONG-TERM( CURRENT)USE OF ANTIPLATELET/AN 03/05/2012 Ot V58.66 LONG-TERM ( CURRENT) USE OF ASPIRIN 03/05/2012 Ot V58.69 OTH MED,LT, CURRENT USE 03/17/2012 ROSE MARY RAMIREZ GILDARDO K 787.01 Nausea With Vomiting 03/17/2012 787.01 Nausea With Vomiting 03/17/2012 MIKA DAVE MD 787.01 Nausea With Vomiting 03/17/2012 787.01 Nausea With Vomiting 03/17/2012 787.01 Nausea With Vomiting 03/17/2012 KOURTNEY ADAMS, SERGIO Lorenzo 787.01 Nausea With Vomiting 03/17/2012 BAZZI DO GILDARDO K 787.01 Nausea With Vomiting 03/17/2012 BAZZI DO GILDARDO K 787.01 Nausea With Vomiting 03/17/2012 BAZZI DO GILDARDO K 787.01 Nausea With Vomiting 03/17/2012 787.01 Nausea With Vomiting 03/17/2012 787.01 Nausea With Vomiting 03/17/2012 787.01 Nausea With Vomiting 03/17/2012 787.01 Nausea With Vomiting 03/17/2012 787.01 Nausea With Vomiting 03/17/2012 787.01 Nausea With Vomiting 03/17/2012 BAZZI DO GILDARDO K 787.01 Nausea With Vomiting 03/17/2012 BAZZI DO GILDARDO K 787.01 Nausea With Vomiting 03/17/2012 MIKA DAVE MD 787.01 Nausea With Vomiting 03/17/2012 ZUNILDA URIAS APRN 787.01 Nausea With Vomiting 03/17/2012 ZUNILDA URIAS APRN 787.01 Nausea With Vomiting 03/17/2012 ROSE MARY RAMIREZ GILDARDO K 787.01 Nausea With Vomiting 03/17/2012 MIKA DAVE MD 787.01 Nausea With Vomiting 03/17/2012 MIKA DAVE MD7.01 Nausea With Vomiting 03/17/2012 BAZZI DO, GILDARDO K 787.01 Nausea With Vomiting 03/17/2012 BAZZI DO, GILDARDO K 787.01 Nausea With Vomiting 03/17/2012 MIKA DAVE MD 787.01 Nausea With Vomiting 03/17/2012 MIKA DAVE MD 787.01 Nausea With Vomiting 03/17/2012 787.01 Nausea With Vomiting 03/17/2012 BAZZI DO, GILDARDO K 787.01 Nausea With Vomiting 03/17/2012 BAZZI DO, GILDARDO K 787.01 Nausea With Vomiting 03/17/2012 MIKA DAVE MD 787.01 Nausea With Vomiting 03/19/2012 BAZZI DO, GILDARDO K 780.4 Dizziness And Giddiness 03/19/2012 780.4 Dizziness And Giddiness 03/19/2012 MIKA DAVE MD 780.4 Dizziness And Giddiness 03/19/2012 780.4 Dizziness And Giddiness 03/19/2012 780.4 Dizziness And Giddiness 03/19/2012 KOURTNEY ADAMS, SERGIO Lorenzo 780.4 Dizziness And Giddiness 03/19/2012 BAZZI DO, GILDARDO K 780.4 Dizziness And Giddiness 03/19/2012 BAZZI DO, GILDARDO K 780.4 Dizziness And Giddiness 03/19/2012 BAZZI DO, GILDARDO K 780.4 Dizziness And Giddiness 03/19/2012 780.4 Dizziness And Giddiness 03/19/2012 780.4 Dizziness And Giddiness 03/19/2012 780.4 Dizziness And Giddiness 03/19/2012 780.4 Dizziness And Giddiness 03/19/2012 780.4 Dizziness And Giddiness 03/19/2012 780.4 Dizziness And Giddiness 03/19/2012 BAZZI DO, GILADRDO K 780.4 Dizziness And Giddiness 03/19/2012 BAZZI DO, GILDARDO K 780.4 Dizziness And Giddiness 03/19/2012 MIKA DAVE MD 780.4 Dizziness And Giddiness 03/19/2012 ZUNILDA URIAS APRN 780.4 Dizziness And Giddiness 03/19/2012 ZUNILDA URIAS APRN 780.4 Dizziness And Giddiness 03/19/2012 BAZZI DO, GILDARDO K 780.4 Dizziness And Giddiness 03/19/2012 MIKA DAVE MD 780.4 Dizziness And Giddiness 03/19/2012 MIKA DAVE MD 780.4 Dizziness And Giddiness 03/19/2012 BAZZI DO, GILDARDO K 780.4 Dizziness And Giddiness 03/19/2012 BAZZI DO, GILDARDO K 780.4 Dizziness And Giddiness 03/19/2012 MIKA DAVE MD 780.4 Dizziness And Giddiness 03/19/2012 MIKA DAVE MD 780.4 Dizziness And Giddiness 03/19/2012 780.4 Dizziness And Giddiness 03/19/2012 BAZZI DO, GILDARDO K 780.4 Dizziness And Giddiness 03/19/2012 BAZZI DO, GILDARDO K 780.4 Dizziness And Giddiness 03/19/2012 MIKA DAVE MD 780.4 Dizziness And Giddiness 03/23/2012 BAZZI DO, GILDARDO K 992.5 Heat Exhaustion Unspecified 03/23/2012 992.5 Heat Exhaustion Unspecified 03/23/2012 MIKA DAVE MD 992.5 Heat Exhaustion Unspecified 03/23/2012 992.5 Heat Exhaustion Unspecified 03/23/2012 992.5 Heat Exhaustion Unspecified 03/23/2012 KOURTNEY ADAMS, SERGIO Lorenzo 992.5 Heat Exhaustion Unspecified 03/23/2012 BAZZI DO, GILDARDO K 992.5 Heat Exhaustion Unspecified 03/23/2012 BAZZI DO, GILDARDO K 992.5 Heat Exhaustion Unspecified 03/23/2012 BAZZI DO, GILDARDO K 992.5 Heat Exhaustion Unspecified 03/23/2012 992.5 Heat Exhaustion Unspecified 03/23/2012 992.5 Heat Exhaustion Unspecified 03/23/2012 992.5 Heat Exhaustion Unspecified 03/23/2012 992.5 Heat Exhaustion Unspecified 03/23/2012 992.5 Heat Exhaustion Unspecified 03/23/2012 992.5 Heat Exhaustion Unspecified 03/23/2012 BAZZI DO, GILDARDO K 992.5 Heat Exhaustion Unspecified 03/23/2012 BAZZI DO, GILDARDO K 992.5 Heat Exhaustion Unspecified 03/23/2012 MIKA DAVE MD 992.5 Heat Exhaustion Unspecified 03/23/2012 ZUNILDA URIAS APRN 992.5 Heat Exhaustion Unspecified 03/23/2012 ZUNILDA URIAS APRN 992.5 Heat Exhaustion Unspecified 03/23/2012 BAZZI DOGILDARDO 992.5 Heat Exhaustion Unspecified 03/23/2012 MIKA DAVE MD 992.5 Heat Exhaustion Unspecified 03/23/2012 MIKA DAVE MD 992.5 Heat Exhaustion Unspecified 03/23/2012 BAZZI GILDARDO RAMIREZ 992.5 Heat Exhaustion Unspecified 03/23/2012 BAZZI , GILDARDO Mckenna 992.5 Heat Exhaustion Unspecified 03/23/2012 MIKA DAVE MD 992.5 Heat Exhaustion Unspecified 03/23/2012 MIKA DAVE MD 992.5 Heat Exhaustion Unspecified 03/23/2012 992.5 Heat Exhaustion Unspecified 03/23/2012 BAZZI GILDARDO RAMIREZ 992.5 Heat Exhaustion Unspecified 03/23/2012 BAZZI DOGILDARDO 992.5 Heat Exhaustion Unspecified 03/23/2012 MIKA DAVE MD 992.5 Heat Exhaustion Unspecified 04/04/2012 Ot 250.00 DIAB ALIYA WO COMPL, TYPE II OR UNSPEC TY 04/04/2012 Ot 272.4 HYPERLIPIDEMIA NEC/NOS 04/04/2012 Ot 401.9 HYPERTENSION NOS 04/04/2012 Ot 414.00 CORON ATHEROSCLER NOS TYPE VESSEL, NATIV 04/09/2012 GILDARDO BAZZI DO 789.00 Abdominal Pain Unspecified Site 04/09/2012 789.00 Abdominal Pain Unspecified Site 04/09/2012 MIKA DAVE MD 789.00 Abdominal Pain Unspecified Site 04/09/2012 789.00 Abdominal Pain Unspecified Site 04/09/2012 789.00 Abdominal Pain Unspecified Site 04/09/2012 KOURTNEY ADAMS, SERGIO Lorenzo 789.00 Abdominal Pain Unspecified Site 04/09/2012 BAZZI GILDARDO RAMIREZ 789.00 Abdominal Pain Unspecified Site 04/09/2012 BAZZI GILDARDO RAMIREZ 789.00 Abdominal Pain Unspecified Site 04/09/2012 BAZZI DOGILDARDO 789.00 Abdominal Pain Unspecified Site 04/09/2012 789.00 Abdominal Pain Unspecified Site 04/09/2012 789.00 Abdominal Pain Unspecified Site 04/09/2012 789.00 Abdominal Pain Unspecified Site 04/09/2012 789.00 Abdominal Pain Unspecified Site 04/09/2012 789.00 Abdominal Pain Unspecified Site 04/09/2012 789.00 Abdominal Pain Unspecified Site 04/09/2012 GILDARDO BAZZI DO 789.00 Abdominal Pain Unspecified Site 04/09/2012 GILDARDO BAZZI DO K 789.00 Abdominal Pain Unspecified Site 04/09/2012 MIKA DAVE MD 789.00 Abdominal Pain Unspecified Site 04/09/2012 ZUNILDA URIAS APRN S 789.00 Abdominal Pain Unspecified Site 04/09/2012 ZUNILDA URIAS APRN S 789.00 Abdominal Pain Unspecified Site 04/09/2012 BAZZI GILDARDO RAMIREZ K 789.00 Abdominal Pain Unspecified Site 04/09/2012 MIKA DAVE MD 789.00 Abdominal Pain Unspecified Site 04/09/2012 MIKA DAVE MD 789.00 Abdominal Pain Unspecified Site 04/09/2012 GILDARDO BAZZI DO K 789.00 Abdominal Pain Unspecified Site 04/09/2012 GILDARDO BAZZI DO K 789.00 Abdominal Pain Unspecified Site 04/09/2012 MIKA DAVE MD 789.00 Abdominal Pain Unspecified Site 04/09/2012 MIKA DAVE MD 789.00 Abdominal Pain Unspecified Site 04/09/2012 789.00 Abdominal Pain Unspecified Site 04/09/2012 GILDARDO BAZZI DO 789.00 Abdominal Pain Unspecified Site 04/09/2012 GILDARDO BAZZI DO K 789.00 Abdominal Pain Unspecified Site 04/09/2012 MIKA DAVE MD 789.00 Abdominal Pain Unspecified Site 04/16/2012 GILDARDO BAZZI DO 599.70 Hematuria Unspecified 04/16/2012 GILDARDO BAZZI DO 724.2 LUMBAGO 04/16/2012 599.70 Hematuria Unspecified 04/16/2012 724.2 LUMBAGO 04/16/2012 MIKA DAVE MD 599.70 Hematuria Unspecified 04/16/2012 MIKA ADVE MD 724.2 LUMBAGO 04/16/2012 599.70 Hematuria Unspecified 04/16/2012 724.2 LUMBAGO 04/16/2012 599.70 Hematuria Unspecified 04/16/2012 724.2 LUMBAGO 04/16/2012 KOURTNEY ADAMS, SERGIO Lorenzo 599.70 Hematuria Unspecified 04/16/2012 KOURTNEY ADAMS, SERGIO Lorenzo 724.2 LUMBAGO 04/16/2012 BAZZI DO, GILDARDO K 599.70 Hematuria Unspecified 04/16/2012 BAZZI DO, GIDLARDO K 724.2 LUMBAGO 04/16/2012 BAZZI DO, GILDARDO K 599.70 Hematuria Unspecified 04/16/2012 BAZZI DO, GILDARDO K 724.2 LUMBAGO 04/16/2012 BAZZI DO, GILDARDO K 599.70 Hematuria Unspecified 04/16/2012 BAZZI DO, GILDARDO K 724.2 Lumbago 04/16/2012 599.70 Hematuria Unspecified 04/16/2012 724.2 Lumbago 04/16/2012 599.70 Hematuria Unspecified 04/16/2012 724.2 Lumbago 04/16/2012 599.70 Hematuria Unspecified 04/16/2012 724.2 Lumbago 04/16/2012 599.70 Hematuria Unspecified 04/16/2012 724.2 Lumbago 04/16/2012 599.70 Hematuria Unspecified 04/16/2012 724.2 Lumbago 04/16/2012 599.70 Hematuria Unspecified 04/16/2012 724.2 Lumbago 04/16/2012 BAZZI DO, GILDARDO K 599.70 Hematuria Unspecified 04/16/2012 BAZZI DO, GILDARDO K 724.2 Lumbago 04/16/2012 BAZZI DO, GILDARDO K 599.70 Hematuria Unspecified 04/16/2012 BAZZI DO, GILDARDO K 724.2 Lumbago 04/16/2012 MIKA DAVE MD 599.70 Hematuria Unspecified 04/16/2012 MIKA DAVE MD 724.2 Lumbago 04/16/2012 BRIDGETT ROLL WINDERKELLIE BricenoNDA S 599.70 Hematuria Unspecified 04/16/2012 KELLIE URIAS APRNNDA S 724.2 Lumbago 04/16/2012 KELLIE URIAS APRNNDA S 599.70 Hematuria Unspecified 04/16/2012 KELLIE URIAS APRNNDA S 724.2 Lumbago 04/16/2012 BAZZI DO, GILDARDO K 599.70 Hematuria Unspecified 04/16/2012 BAZZI DO, GILDARDO K 724.2 Lumbago 04/16/2012 MIKA DAVE MD 599.70 Hematuria Unspecified 04/16/2012 JOLIE ADAMS, MIKA 724.2 Lumbago 04/16/2012 MIKA DAVE MD 599.70 Hematuria Unspecified 04/16/2012 MIKA DAVE MD 724.2 Lumbago 04/16/2012 BAZZI DO, GILDARDO K 599.70 Hematuria Unspecified 04/16/2012 BAZZI DO, GILDARDO K 724.2 Lumbago 04/16/2012 BAZZI DO, GILDARDO K 599.70 Hematuria Unspecified 04/16/2012 BAZZI DO, GILDARDO K 724.2 Lumbago 04/16/2012 MIKA DAVE MD 599.70 Hematuria Unspecified 04/16/2012 MIKA DAVE MD 724.2 Lumbago 04/16/2012 MIKA DAVE MD 599.70 Hematuria Unspecified 04/16/2012 MIKA DAVE MD 724.2 LUMBAGO 04/16/2012 599.70 Hematuria Unspecified 04/16/2012 724.2 Lumbago 04/16/2012 BAZZI DO, GILDARDO K 599.70 Hematuria Unspecified 04/16/2012 BAZZI DO, GILDARDO K 724.2 Lumbago 04/16/2012 BAZZI DO, GILDARDO K 599.70 Hematuria Unspecified 04/16/2012 BAZZI DO, GILDARDO K 724.2 Lumbago 04/16/2012 MIKA DAVE MD 599.70 Hematuria Unspecified 04/16/2012 MIKA DAVE MD 724.2 Lumbago 08/10/2012 BAZZI DO, GILDARDO K 789.04 ABDOMINAL PAIN LEFT LOWER QUADRANT 08/10/2012 789.04 ABDOMINAL PAIN LEFT LOWER QUADRANT 08/10/2012 MIKA DAVE MD 789.04 ABDOMINAL PAIN LEFT LOWER QUADRANT 08/10/2012 789.04 ABDOMINAL PAIN LEFT LOWER QUADRANT 08/10/2012 789.04 ABDOMINAL PAIN LEFT LOWER QUADRANT 08/10/2012 KOURTNEY ADAMS, SERGIO Lorenzo 789.04 ABDOMINAL PAIN LEFT LOWER QUADRANT 08/10/2012 BAZZI DO GILDARDO K 789.04 ABDOMINAL PAIN LEFT LOWER QUADRANT 08/10/2012 BAZZI DO, GILDARDO K 789.04 ABDOMINAL PAIN LEFT LOWER QUADRANT 08/10/2012 BAZZI DO GILDARDO K 789.04 Abdominal Pain Left Lower Quadrant 08/10/2012 789.04 Abdominal Pain Left Lower Quadrant 08/10/2012 789.04 Abdominal Pain Left Lower Quadrant 08/10/2012 789.04 Abdominal Pain Left Lower Quadrant 08/10/2012 789.04 Abdominal Pain Left Lower Quadrant 08/10/2012 789.04 Abdominal Pain Left Lower Quadrant 08/10/2012 789.04 Abdominal Pain Left Lower Quadrant 08/10/2012 GERMAN BAZZI DOA K 789.04 Abdominal Pain Left Lower Quadrant 08/10/2012 BAZZI GERMAN RAMIREZA K 789.04 Abdominal Pain Left Lower Quadrant 08/10/2012 MIKA DAVE MD 789.04 Abdominal Pain Left Lower Quadrant 08/10/2012 ZUNILDA URIAS APRN S 789.04 Abdominal Pain Left Lower Quadrant 08/10/2012 ZUNILDA URIAS APRN S 789.04 Abdominal Pain Left Lower Quadrant 08/10/2012 GILDARDO BAZIZ DO K 789.04 Abdominal Pain Left Lower Quadrant 08/10/2012 MIKA DAVE MD 789.04 Abdominal Pain Left Lower Quadrant 08/10/2012 MIKA DAVE MD 789.04 Abdominal Pain Left Lower Quadrant 08/10/2012 GILDARDO BAZZI DO K 789.04 Abdominal Pain Left Lower Quadrant 08/10/2012 GILDARDO BAZZI DO K 789.04 Abdominal Pain Left Lower Quadrant 08/10/2012 MIKA DAVE MD 789.04 Abdominal Pain Left Lower Quadrant 08/10/2012 789.04 Abdominal Pain Left Lower Quadrant 08/10/2012 GILDARDO BAZZI DO K 789.04 Abdominal Pain Left Lower Quadrant 08/10/2012 GILDARDO BAZZI DO K 789.04 Abdominal Pain Left Lower Quadrant 08/10/2012 MIKA DAVE MD 789.04 Abdominal Pain Left Lower Quadrant 09/15/2012 MIKA DAVE MD 600.01 HYPERTROPHY (BENIGN) OF PROSTATE WITH URINARY OBSTRUCTION AND OTHER LOWER URINARY TRACT SYMPTOMS (LUTS) 09/15/2012 MIKA DAVE MD 696.3 PITYRIASIS ROSEA 09/15/2012 600.01 HYPERTROPHY ( BENIGN) OF PROSTATE WITH URINARY OBSTRUCTION AND OTHER LOWER URINARY TRACT SYMPTOMS (LUTS) 09/15/2012 696.3 PITYRIASIS ROSEA 09/15/2012 600.01 HYPERTROPHY ( BENIGN) OF PROSTATE WITH URINARY OBSTRUCTION AND OTHER LOWER URINARY TRACT SYMPTOMS (LUTS) 09/15/2012 696.3 PITYRIASIS ROSEA 09/15/2012 SERGIO OCONNELL MD 600.01 HYPERTROPHY (BENIGN) OF PROSTATE WITH URINARY OBSTRUCTION AND OTHER LOWER URINARY TRACT SYMPTOMS (LUTS) 09/15/2012 KOURTNEY ADAMS, SERGIO Lorenzo 696.3 PITYRIASIS ROSEA 09/15/2012 BAZZI DO GILDARDO K 600.01 HYPERTROPHY (BENIGN) OF PROSTATE WITH URINARY OBSTRUCTION AND OTHER LOWER URINARY TRACT SYMPTOMS (LUTS) 09/15/2012 BAZZI DO, GILDARDO K 696.3 PITYRIASIS ROSEA 09/15/2012 BAZZI DO GILDARDO K 600.01 HYPERTROPHY (BENIGN) OF PROSTATE WITH URINARY OBSTRUCTION AND OTHER LOWER URINARY TRACT SYMPTOMS (LUTS) 09/15/2012 BAZZI DO, GILDARDO K 696.3 PITYRIASIS ROSEA 09/15/2012 BAZZI DO GILDARDO K 600.01 HYPERTROPHY (BENIGN) OF PROSTATE WITH URINARY OBSTRUCTION AND OTHER LOWER URINARY TRACT SYMPTOMS (LUTS) 09/15/2012 BAZZI DO, GILDARDO K 696.3 Pityriasis Rosea 09/15/2012 600.01 HYPERTROPHY ( BENIGN) OF PROSTATE WITH URINARY OBSTRUCTION AND OTHER LOWER URINARY TRACT SYMPTOMS (LUTS) 09/15/2012 696.3 Pityriasis Rosea 09/15/2012 600.01 HYPERTROPHY ( BENIGN) OF PROSTATE WITH URINARY OBSTRUCTION AND OTHER LOWER URINARY TRACT SYMPTOMS (LUTS) 09/15/2012 696.3 Pityriasis Rosea 09/15/2012 600.01 HYPERTROPHY ( BENIGN) OF PROSTATE WITH URINARY OBSTRUCTION AND OTHER LOWER URINARY TRACT SYMPTOMS (LUTS) 09/15/2012 696.3 Pityriasis Rosea 09/15/2012 600.01 HYPERTROPHY ( BENIGN) OF PROSTATE WITH URINARY OBSTRUCTION AND OTHER LOWER URINARY TRACT SYMPTOMS (LUTS) 09/15/2012 696.3 Pityriasis Rosea 09/15/2012 600.01 HYPERTROPHY ( BENIGN) OF PROSTATE WITH URINARY OBSTRUCTION AND OTHER LOWER URINARY TRACT SYMPTOMS (LUTS) 09/15/2012 696.3 Pityriasis Rosea 09/15/2012 600.01 HYPERTROPHY ( BENIGN) OF PROSTATE WITH URINARY OBSTRUCTION AND OTHER LOWER URINARY TRACT SYMPTOMS (LUTS) 09/15/2012 696.3 Pityriasis Rosea 09/15/2012 GILDARDO BAZZI DO K 600.01 HYPERTROPHY (BENIGN) OF PROSTATE WITH URINARY OBSTRUCTION AND OTHER LOWER URINARY TRACT SYMPTOMS (LUTS) 09/15/2012 GILDARDO BAZZI DO K 696.3 Pityriasis Rosea 09/15/2012 GILDARDO BAZZI DO K 600.01 HYPERTROPHY (BENIGN) OF PROSTATE WITH URINARY OBSTRUCTION AND OTHER LOWER URINARY TRACT SYMPTOMS (LUTS) 09/15/2012 GILDARDO BAZZI DO 696.3 Pityriasis Rosea 09/15/2012 MIKA DAVE MD 600.01 HYPERTROPHY (BENIGN) OF PROSTATE WITH URINARY OBSTRUCTION AND OTHER LOWER URINARY TRACT SYMPTOMS (LUTS) 09/15/2012 MIKA DAVE MD.3 Pityriasis Rosea 09/15/2012 ZUNILDA URIAS APRN S 600.01 HYPERTROPHY (BENIGN) OF PROSTATE WITH URINARY OBSTRUCTION AND OTHER LOWER URINARY TRACT SYMPTOMS (LUTS) 09/15/2012 ZUNILDA URIAS APRN S 696.3 Pityriasis Rosea 09/15/2012 ZUNILDA URIAS APRN S 600.01 HYPERTROPHY (BENIGN) OF PROSTATE WITH URINARY OBSTRUCTION AND OTHER LOWER URINARY TRACT SYMPTOMS (LUTS) 09/15/2012 ZUNILDA URIAS APRN S 696.3 Pityriasis Rosea 09/15/2012 GILDARDO BAZZI DO K 600.01 HYPERTROPHY (BENIGN) OF PROSTATE WITH URINARY OBSTRUCTION AND OTHER LOWER URINARY TRACT SYMPTOMS (LUTS) 09/15/2012 GILDARDO BAZZI DO 696.3 Pityriasis Rosea 09/15/2012 MIKA DAVE MD 600.01 HYPERTROPHY (BENIGN) OF PROSTATE WITH URINARY OBSTRUCTION AND OTHER LOWER URINARY TRACT SYMPTOMS (LUTS) 09/15/2012 MIKA DAVE MD.Rachel Pityriasis Rosea 09/15/2012 MIKA DAVE MD 600.01 HYPERTROPHY (BENIGN) OF PROSTATE WITH URINARY OBSTRUCTION AND OTHER LOWER URINARY TRACT SYMPTOMS (LUTS) 09/15/2012 MIKA DAVE MD.3 Pityriasis Rosea 09/15/2012 GILDARDO BAZZI DO 600.01 HYPERTROPHY (BENIGN) OF PROSTATE WITH URINARY OBSTRUCTION AND OTHER LOWER URINARY TRACT SYMPTOMS (LUTS) 09/15/2012 GILDARDO BAZZI DO 696.3 Pityriasis Rosea 09/15/2012 GILDARDO BAZZI DO 600.01 HYPERTROPHY (BENIGN) OF PROSTATE WITH URINARY OBSTRUCTION AND OTHER LOWER URINARY TRACT SYMPTOMS (LUTS) 09/15/2012 GILDARDO BAZZI DO 696.3 Pityriasis Rosea 09/15/2012 MIKA DAVE MD 600.01 HYPERTROPHY (BENIGN) OF PROSTATE WITH URINARY OBSTRUCTION AND OTHER LOWER URINARY TRACT SYMPTOMS (LUTS) 09/15/2012 MIKA DAVE MD 696.3 Pityriasis Rosea 09/15/2012 600.01 HYPERTROPHY ( BENIGN) OF PROSTATE WITH URINARY OBSTRUCTION AND OTHER LOWER URINARY TRACT SYMPTOMS (LUTS) 09/15/2012 696.3 Pityriasis Rosea 09/15/2012 GILDARDO BAZZI DO 600.01 HYPERTROPHY (BENIGN) OF PROSTATE WITH URINARY OBSTRUCTION AND OTHER LOWER URINARY TRACT SYMPTOMS (LUTS) 09/15/2012 GILDARDO BAZZI DO 696.3 Pityriasis Rosea 09/15/2012 GILDARDO BAZZI DO 600.01 HYPERTROPHY (BENIGN) OF PROSTATE WITH URINARY OBSTRUCTION AND OTHER LOWER URINARY TRACT SYMPTOMS (LUTS) 09/15/2012 GILDARDO BAZZI DO 696.3 Pityriasis Rosea 09/15/2012 MIKA DAVE MD 600.01 HYPERTROPHY (BENIGN) OF PROSTATE WITH URINARY OBSTRUCTION AND OTHER LOWER URINARY TRACT SYMPTOMS (LUTS) 09/15/2012 MIKA DAVE MD 696.3 Pityriasis Rosea 10/16/2012 782.1 RASH AND OTHER NONSPECIFIC SKIN ERUPTION 10/16/2012 KOURTNEY ADAMS, SERGIO Lorenzo 782.1 RASH AND OTHER NONSPECIFIC SKIN ERUPTION 10/16/2012 GILDARDO BAZZI DO 782.1 RASH AND OTHER NONSPECIFIC SKIN ERUPTION 10/16/2012 GILDARDO BAZZI DO 782.1 RASH AND OTHER NONSPECIFIC SKIN ERUPTION 10/16/2012 GILDARDO BAZZI DO 782.1 Rash And Other Nonspecific Skin Eruption 10/16/2012 782.1 Rash And Other Nonspecific Skin Eruption 10/16/2012 782.1 Rash And Other Nonspecific Skin Eruption 10/16/2012 782.1 Rash And Other Nonspecific Skin Eruption 10/16/2012 782.1 Rash And Other Nonspecific Skin Eruption 10/16/2012 782.1 Rash And Other Nonspecific Skin Eruption 10/16/2012 782.1 Rash And Other Nonspecific Skin Eruption 10/16/2012 ROSE MARY RAMIREZ GILDARDO K 782.1 Rash And Other Nonspecific Skin Eruption 10/16/2012 BAZZI DO GILDARDO K 782.1 Rash And Other Nonspecific Skin Eruption 10/16/2012 MIKA DAVE MD 782.1 Rash And Other Nonspecific Skin Eruption 10/16/2012 HUGO URIAS APRNA S 782.1 Rash And Other Nonspecific Skin Eruption 10/16/2012 HUGO URIAS APRNA S 782.1 Rash And Other Nonspecific Skin Eruption 10/16/2012 ROSE MARY RAMIREZ GILDARDO K 782.1 Rash And Other Nonspecific Skin Eruption 10/16/2012 MIKA DAVE MD 782.1 Rash And Other Nonspecific Skin Eruption 10/16/2012 MIKA DAVE MD 782.1 Rash And Other Nonspecific Skin Eruption 10/16/2012 GERMAN BAZZI DOA K 782.1 Rash And Other Nonspecific Skin Eruption 10/16/2012 GERMAN BAZZI DOA K 782.1 Rash And Other Nonspecific Skin Eruption 10/16/2012 MIKA DAVE MD 782.1 Rash And Other Nonspecific Skin Eruption 10/16/2012 782.1 Rash And Other Nonspecific Skin Eruption 10/16/2012 GERMAN BAZZI DOA K 782.1 Rash And Other Nonspecific Skin Eruption 10/16/2012 GERMAN BAZZI DOA K 782.1 Rash And Other Nonspecific Skin Eruption 10/16/2012 MIKA DAVE MD 782.1 Rash And Other Nonspecific Skin Eruption 10/26/2012 601.9 PROSTATITIS UNSPECIFIED 10/26/2012 KOURTNEY ADAMS, SERGIO Lorenzo 601.9 PROSTATITIS UNSPECIFIED 10/26/2012 ROSE MARY RAMIREZ GILDARDO K 601.9 PROSTATITIS UNSPECIFIED 10/26/2012 BAZZI DO GILDARDO K 601.9 PROSTATITIS UNSPECIFIED 10/26/2012 BAZZI , GILDARDO K 601.9 Prostatitis Unspecified 10/26/2012 601.9 Prostatitis Unspecified 10/26/2012 601.9 Prostatitis Unspecified 10/26/2012 601.9 Prostatitis Unspecified 10/26/2012 601.9 Prostatitis Unspecified 10/26/2012 601.9 Prostatitis Unspecified 10/26/2012 601.9 Prostatitis Unspecified 10/26/2012 ROSE MARY RAMIREZ GILDARDO K 601.9 Prostatitis Unspecified 10/26/2012 BAZZI DOGERMANA K 601.9 Prostatitis Unspecified 10/26/2012 MIKA DAVE MD 601.9 Prostatitis Unspecified 10/26/2012 ZUNILDA URIAS APRN S 601.9 Prostatitis Unspecified 10/26/2012 ZUNILDA URIAS APRN S 601.9 Prostatitis Unspecified 10/26/2012 GIDLARDO BAZZI DO K 601.9 Prostatitis Unspecified 10/26/2012 MIKA DAVE MD 601.9 Prostatitis Unspecified 10/26/2012 MIKA DAVE MD 601.9 Prostatitis Unspecified 10/26/2012 BAZZI DO GILDARDO K 601.9 Prostatitis Unspecified 10/26/2012 BAZZI DOGERMANA K 601.9 Prostatitis Unspecified 10/26/2012 MIKA DAVE MD 601.9 Prostatitis Unspecified 10/26/2012 601.9 Prostatitis Unspecified 10/26/2012 BAZZI DOGERMANA K 601.9 Prostatitis Unspecified 10/26/2012 BAZZI DO GILDARDO K 601.9 Prostatitis Unspecified 10/26/2012 MIKA DAVE MD 601.9 Prostatitis Unspecified 11/09/2012 BAZZI DO GILDARDO K 789.00 ABDOMINAL PAIN UNSPECIFIED SITE 11/09/2012 BAZZI DO GILDARDO K 789.00 Abdominal Pain Unspecified Site 11/09/2012 789.00 Abdominal Pain Unspecified Site 11/09/2012 789.00 Abdominal Pain Unspecified Site 11/09/2012 789.00 Abdominal Pain Unspecified Site 11/09/2012 789.00 Abdominal Pain Unspecified Site 11/09/2012 789.00 Abdominal Pain Unspecified Site 11/09/2012 789.00 Abdominal Pain Unspecified Site 11/09/2012 BAZZI DOGERMANA K 789.00 Abdominal Pain Unspecified Site 11/09/2012 BAZZI DOGERMANA K 789.00 Abdominal Pain Unspecified Site 11/09/2012 MIKA DAVE MD 789.00 Abdominal Pain Unspecified Site 11/09/2012 KELLIE URIAS APRNNDA S 789.00 Abdominal Pain Unspecified Site 11/09/2012 ZUNILDA URIAS APRN S 789.00 Abdominal Pain Unspecified Site 11/09/2012 GILDARDO BAZZI DO 789.00 Abdominal Pain Unspecified Site 11/09/2012 MIKA DAVE MD 789.00 Abdominal Pain Unspecified Site 11/09/2012 MIKA DAVE MD 789.00 Abdominal Pain Unspecified Site 11/09/2012 GILDARDO BAZZI DO 789.00 Abdominal Pain Unspecified Site 11/09/2012 GILDARDO BAZZI DO 789.00 Abdominal Pain Unspecified Site 11/09/2012 MIKA DAEV MD 789.00 Abdominal Pain Unspecified Site 11/09/2012 789.00 Abdominal Pain Unspecified Site 11/09/2012 GILDARDO BAZZI DO 789.00 Abdominal Pain Unspecified Site 11/09/2012 GILDAROD BAZZI DO 789.00 Abdominal Pain Unspecified Site 11/09/2012 MIKA DAVE MD 789.00 Abdominal Pain Unspecified Site 11/23/2012 Ot 564.00 UNSPEC CONSTIPATION 11/23/2012 Ot 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.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90 ENTHESOPATHY OF UNSPECIFIED SITE 04/12/2013 MIKA DAVE MD6.90 ENTHESOPATHY OF UNSPECIFIED SITE 04/12/2013 GILDARDO BAZZI DO 726.90 ENTHESOPATHY OF UNSPECIFIED SITE 04/12/2013 GILDARDO BAZZI DO 726.90 ENTHESOPATHY OF UNSPECIFIED SITE 04/12/2013 MIKA DAVE MD 726.90 ENTHESOPATHY OF UNSPECIFIED SITE 04/12/2013 726.90 ENTHESOPATHY OF UNSPECIFIED SITE 04/12/2013 ROSE MARY RAMIREZ GILDARDO K 726.90 ENTHESOPATHY OF UNSPECIFIED SITE 04/12/2013 BAZZI DO GILDARDO K 726.90 ENTHESOPATHY OF UNSPECIFIED SITE 04/12/2013 MIKA DAVE MD 726.90 ENTHESOPATHY OF UNSPECIFIED SITE 05/14/2013 BAZZI DO GILDARDO K 411.1 ANGINA, UNSTABLE 05/14/2013 BAZZI DO, GILDARDO K 411.1 ANGINA, UNSTABLE 05/14/2013 MIKA DAVE MD 411.1 ANGINA, UNSTABLE 05/14/2013 BRIDGETT BERNAL ZUNILDA S 411.1 ANGINA, UNSTABLE 05/14/2013 BRIDGETT BERNAL ZUNILDA S 411.1 ANGINA, UNSTABLE 05/14/2013 BAZZI DO GILADRDO K 411.1 ANGINA, UNSTABLE 05/14/2013 MIKA DAVE MD 411.1 ANGINA, UNSTABLE 05/14/2013 MIKA DAVE MD 411.1 ANGINA, UNSTABLE 05/14/2013 BAZZI DO GILDARDO K 411.1 ANGINA, UNSTABLE 05/14/2013 BAZZI DO, GILDARDO K 411.1 ANGINA, UNSTABLE 05/14/2013 MIKA DAVE MD 411.1 ANGINA, UNSTABLE 05/14/2013 411.1 ANGINA, UNSTABLE 05/14/2013 BAZZI DO GILDARDO K 411.1 ANGINA, UNSTABLE 05/14/2013 BAZZI DO GILDARDO K 411.1 ANGINA, UNSTABLE 05/14/2013 MIKA DAVE MD 411.1 ANGINA, UNSTABLE 09/03/2013 MIKA DAVE MD 786.2 COUGH 09/03/2013 KELLIE URIAS APRNNDA S 786.2 COUGH 09/03/2013 BRIDGETT BERNAL ZUNILDA S 786.2 COUGH 09/03/2013 BAZZI DO GILDARDO K 786.2 COUGH 09/03/2013 MIKA DAVE MD 786.2 COUGH 09/03/2013 MIKA DAVE MD 786.2 COUGH 09/03/2013 BAZZI DO, GIDLARDO K 786.2 COUGH 09/03/2013 BAZZI DO, GILDARDO K 786.2 COUGH 09/03/2013 MIKA DAVE MD 786.2 COUGH 09/03/2013 786.2 COUGH 09/03/2013 BAZZI DO, GILDARDO K 786.2 COUGH 09/03/2013 BAZZI DO, GILDARDO K 786.2 COUGH 09/03/2013 MIKA DAVE MD 786.2 COUGH 09/18/2013 ZUNILDA URIAS APRN 530.81 GERD 09/18/2013 BAZZI DO, GILDARDO K 530.81 GERD 09/18/2013 MIKA DAVE MD 530.81 GERD 09/18/2013 MIKA DAVE MD 530.81 GERD 09/18/2013 BAZZI DO, GILDARDO K 530.81 GERD 09/18/2013 BAZZI DO, GILDARDO K 530.81 GERD 09/18/2013 MIKA DAVE MD 530.81 GERD 09/18/2013 530.81 GERD 09/18/2013 BAZZI DO, GILDARDO K 530.81 GERD 09/18/2013 BAZZI DO, GILDARDO K 530.81 GERD 09/18/2013 MIKA DAVE MD 530.81 GERD 10/15/2013 GERMAN BAZZI DOA K 401.1 HYPERTENSION, BENIGN ESSENTIAL 10/15/2013 MIKA DAVE MD 401.1 HYPERTENSION, BENIGN ESSENTIAL 10/15/2013 MIKA DAVE MD 401.1 HYPERTENSION, BENIGN ESSENTIAL 10/15/2013 GERMAN BAZZI DOA K 401.1 HYPERTENSION, BENIGN ESSENTIAL 10/15/2013 GERMAN BAZZI DOA K 401.1 HYPERTENSION, BENIGN ESSENTIAL 10/15/2013 MIKA DAVE MD 401.1 HYPERTENSION, BENIGN ESSENTIAL 10/15/2013 401.1 HYPERTENSION, BENIGN ESSENTIAL 10/15/2013 GERMAN BAZZI DOA K 401.1 HYPERTENSION, BENIGN ESSENTIAL 10/15/2013 GERMAN BAZZI DOA K 401.1 HYPERTENSION, BENIGN ESSENTIAL 10/15/2013 MIKA DAVE MD 401.1 HYPERTENSION, BENIGN ESSENTIAL 11/04/2013 MIKA DAVE MD 459.81 VENOUS (PERIPHERAL) INSUFFICIENCY UNSPECIFIED 11/04/2013 MIKA DAVE MD 459.81 VENOUS (PERIPHERAL) INSUFFICIENCY UNSPECIFIED 11/04/2013 GILDARDO BAZZI DO 459.81 VENOUS (PERIPHERAL) INSUFFICIENCY UNSPECIFIED 11/04/2013 GILDARDO BAZZI DO 459.81 VENOUS (PERIPHERAL) INSUFFICIENCY UNSPECIFIED 11/04/2013 MIKA DAVE MD 459.81 VENOUS (PERIPHERAL) INSUFFICIENCY UNSPECIFIED 11/04/2013 459.81 VENOUS ( PERIPHERAL) INSUFFICIENCY UNSPECIFIED 11/04/2013 GILDARDO BAZZI DO 459.81 VENOUS (PERIPHERAL) INSUFFICIENCY UNSPECIFIED 11/04/2013 GILDARDO BAZZI DO 459.81 VENOUS (PERIPHERAL) INSUFFICIENCY UNSPECIFIED 11/04/2013 MIKA DAVE MD 459.81 VENOUS (PERIPHERAL) INSUFFICIENCY UNSPECIFIED 03/01/2014 MIKA DAVE MD 786.50 UNSPECIFIED CHEST PAIN 03/01/2014 786.50 UNSPECIFIED CHEST PAIN 03/01/2014 GILDARDO BAZZI DO K 786.50 UNSPECIFIED CHEST PAIN 03/01/2014 GILDARDO BAZZI DO 786.50 UNSPECIFIED CHEST PAIN 03/01/2014 MIKA DAVE MD 786.50 UNSPECIFIED CHEST PAIN 03/02/2014 DESMOND PEGUERO MD Ot 272.4 HYPERLIPIDEMIA NEC/NOS 03/02/2014 DESMOND PEGUERO MD Ot 278.00 OBESITY, NOS 03/02/2014 DESMOND PEGUERO MD Ot 401.9 HYPERTENSION NOS 03/02/2014 DESMOND PEGUERO MD Ot 410.71 AC MYOCARDIAL INFARCT,SUBENDO INFARCT,IN 03/02/2014 DESMOND PEGUERO MD Ot 414.01 CORONARY ATHEROSCLEROSIS OF [place] CORON 03/02/2014 DESMOND PEGUERO MD Ot 428.0 CONGESTIVE HEART FAILURE NOS 03/02/2014 DESMOND PEGUERO MD Ot 428.23 ACUTE CHRONIC SYSTOLIC HRT FAILURE 03/02/2014 DESMOND PEGUERO MD Ot V45.82 PERCUTANEOUS TRANSLUM CORON ANGIOPLASTY 03/02/2014 DESMOND PEGUERO MD, Ot V58.69 OT MED,LT,CURRENT USE 03/02/2014 DESMOND PEGUERO MD Ot V85.39 BODY MASS INDEX 39.0-39.9, ADULT 03/07/2014 DESMOND PEGUERO MD Ot 272.4 HYPERLIPIDEMIA NEC/NOS 03/07/2014 DESMOND PEGUERO MD Ot 278.00 OBESITY, NOS 03/07/2014 DESMOND PEGUERO MD Ot 401.9 HYPERTENSION NOS 03/07/2014 DESMOND PEGUERO MD Ot 410.72 AC MYOCARD INFARCT,SUBENDO INFARCT,SUBSE 03/07/2014 DESMOND PEGUERO MD Ot 414.01 CORONARY ATHEROSCLEROSIS OF [place] CORON 03/07/2014 DESMOND PEGUERO MD Ot 414.8 CHR ISCHEMIC HRT DIS NEC 03/07/2014 DESMOND PEGUERO MD Ot 426.3 LEFT BB BLOCK NEC 03/07/2014 DESMOND PEGUERO MD Ot 790.21 IMPAIRED FASTING GLUCOSE 03/07/2014 DESMOND PEGUERO MD Ot V45.82 PERCUTANEOUS TRANSLUM CORON ANGIOPLASTY 03/07/2014 DESMOND PEGUERO MD Ot V85.38 BODY MASS INDEX 38.0-38.9, ADULT 04/08/2014 DESMOND PEGUERO MD Ot V45.82 PERCUTANEOUS TRANSLUM CORON ANGIOPLASTY 04/08/2014 DESMOND PEGUERO MD Ot V57.89 REHABILITATION PROC NEC 04/08/2014 DESMOND PEGUERO MD Ot V58.73 AFTERCARE POST SURGERY CIRULATORY SYSTEM 08/30/2014 DESMOND PEGUERO MD Ot 272.4 08/30/2014 DESMOND PEGUERO MD Ot 397.0 08/30/2014 DESMOND PEGUERO MD Ot 401.9 08/30/2014 DESMOND PEGUERO MD Ot 414.00 08/30/2014 DESMOND PEGUERO MD Ot 424.0 08/30/2014 DESMOND PEGUERO MD Ot 428.0 12/10/2014 MIKA DAVE MD 729.5 PAIN- HAND 12/12/2014 MIKA DAVE MD 780.79 OTHER MALAISE AND FATIGUE 12/12/2014 MIKA DAVE MD 786.09 RESPIRATORY ABNORMALITY OTHER 01/11/2015 Ot 789.00 01/11/2015 Ot V72.84 01/11/2015 DESMOND PEGUERO MD Ot 272.4 01/11/2015 DESMOND PEGUERO MD Ot 397.0 01/11/2015 DESMOND PEGUERO MD Ot 401.9 01/11/2015 DESMOND PEGUERO MD Ot 414.00 01/11/2015 DESMOND PEGUERO MD Ot 424.0 01/11/2015 DESMOND PEGUERO MD Ot 428.0 01/12/2015 DESMOND PEGUERO MD Ot 433.10 01/16/2015 DESMOND PEGUERO MD Ot 433.10 01/16/2015 Ot 789.00 01/16/2015 Ot V72.84 01/16/2015 DESMOND PEGUERO MD Ot 272.4 01/16/2015 DESMOND PEGUERO MD Ot 397.0 01/16/2015 DESMOND PEGUERO MD Ot 401.9 01/16/2015 DESMOND PEGUERO MD Ot 414.00 01/16/2015 DESMOND PEGUERO MD Ot 424.0 01/16/2015 DESMOND PEGUERO MD Ot 428.0 01/16/2015 DESMOND PEGUERO MD Ot 433.10 02/06/2015 DESMOND PEGUERO MD Ot 433.10 02/20/2015 DESMOND PEGUERO MD Ot 433.10 02/24/2015 DORIS HAQUE MD Ot 401.9 HYPERTENSION NOS 02/24/2015 DORIS HAQUE MD Ot 414.01 CORONARY ATHEROSCLEROSIS OF [place] CORON 02/24/2015 DORIS HAQUE MD Ot 530.81 ESOPHAGEAL REFLUX 02/24/2015 DORIS HAQUE MD Ot 786.50 CHEST PAIN NOS 02/24/2015 DORIS HAQUE MD Ot 786.59 CHEST PAIN NEC 02/24/2015 DORIS HAQUE MD Ot 787.3 FLATUL/ERUCTAT/GAS PAIN 03/16/2015 DORIS HAQUE MD Ot 401.9 HYPERTENSION NOS 03/16/2015 DORIS HAQUE MD Ot 784.2 SWELLING IN HEAD NECK 03/16/2015 DORIS HAQUE MD Ot 995.1 ANGIONEUROTIC EDEMA 04/05/2015 RON LÓPEZ DO Ot 784.2 SWELLING IN HEAD NECK 04/05/2015 RON LÓPEZ DO Ot 995.1 ANGIONEUROTIC EDEMA 04/05/2015 RON LÓPEZ DO Ot E000.8 OTHER EXTERNAL CAUSE STATUS 04/05/2015 RON LÓPEZ DO Ot E928.9 ACCIDENT NOS 04/12/2015 Ot 789.00 04/12/2015 Ot V72.84 04/12/2015 DESMOND PEGUERO MD Ot 272.4 04/12/2015 DESMOND PEGUERO MD Ot 397.0 04/12/2015 DESMOND PEGUERO MD Ot 401.9 04/12/2015 DESMOND PEGUERO MD Ot 414.00 04/12/2015 MADDIE ADAMS, DESMOND Prabhakar Ot 424.0 04/12/2015 MADDIE ADAMS, DESMOND Prabhakar Ot 428.0 04/12/2015 MADDIE ADAMS, DESMOND Prabhakar Ot 433.10 05/09/2015 MIKA DAVE MD Ot 244.9 HYPOTHYROIDISM NOS 05/09/2015 JOLIE ADAMS, MIKA Iglesias Ot 327.23 OBSTRUCTIVE SLEEP APNEA (ADULT) (PEDIATR 05/09/2015 JOLIE ADAMS, MIKA Iglesias Ot 401.9 HYPERTENSION NOS 05/09/2015 JOLIE ADAMS, MIKA Iglesias Ot 414.01 CORONARY ATHEROSCLEROSIS OF [place] CORON 05/09/2015 MIKA DAVE MD Ot 426.3 LEFT BB BLOCK NEC 05/09/2015 MIKA DAVE MD Ot 433.10 CAROTID ARTERY OCCLUSION W O CEREBRAL IN 05/09/2015 MIKA DAVE MD Ot 784.2 SWELLING IN HEAD NECK 05/09/2015 MIKA DAVE MD Ot V45.89 POSTSURGICAL STATES NEC 05/09/2015 MIKA DAVE MD Ot 244.9 05/09/2015 MIKA DAVE MD Ot 327.23 05/09/2015 MIKA DAVE MD Ot 401.9 05/09/2015 MIKA DAVE MD Ot 414.01 05/09/2015 MIKA DAVE MD Ot 426.3 05/09/2015 MIKA DAVE MD Ot 433.10 05/09/2015 MIKA DAVE MD Ot 784.2 05/09/2015 MIKA DAVE MD Ot V45.89 05/21/2015 MIKA DAVE MD Ot 780.57 UNSPECIFIED SLEEP APNEA 05/21/2015 MIKA DAVE MD Ot 995.1 ANGIONEUROTIC EDEMA 05/21/2015 MIKA DAVE MD Ot G47.30 SLEEP APNEA, UNSPECIFIED 05/21/2015 MIKA DAVE MD Ot T78.3XXA ANGIONEUROTIC EDEMA, INITIAL ENCOUNTER 06/07/2015 YVROSE ADAMS, JOSE ANGEL Florence Ot 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 06/07/2015 JOSE ANGEL FRANCES MD Ot 784.42 DYSPHONIA 06/07/2015 JOSE ANGEL FRANCES MD Ot V45.89 POSTSURGICAL STATES NEC 06/07/2015 JOSE ANGEL FRANCES MD Ot V57.3 CARE INVOLVING SPEECH-LANGUAGE THERAPY 07/06/2015 JOSE ANGEL FRANCES MD Ot 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, UNS 07/06/2015 JOSE ANGEL FRANCES MD Ot R49.0 DYSPHONIA 07/06/2015 JOSE ANGEL FRANCES MD Ot J38.00 07/06/2015 JOSE ANGEL FRANCES MD Ot R49.0 08/07/2015 SONYA ANDERSON ROLL WINDER Ot F17.211 NICOTINE DEPENDENCE, CIGARETTES, IN JAGJIT 08/07/2015 SONYA ANDERSON ROLL WINDER Ot I44.7 LEFT BUNDLE-BRANCH BLOCK, UNSPECIFIED 08/07/2015 SONYA ANDERSON ROLL WINDER Ot T78.3XXA ANGIONEUROTIC EDEMA, INITIAL ENCOUNTER 08/18/2015 DESMOND PEGUERO MD Ot E78.5 08/18/2015 DESMOND PEGUERO MD Ot I10 08/18/2015 DESMOND PEGUERO MD Ot I25.10 08/18/2015 DESMOND PEGUERO MD Ot I50.9 09/07/2015 DESMOND PEGUERO MD Ot E78.5 09/07/2015 DESMOND PEGUERO MD Ot I10 09/07/2015 DESMOND PEGUERO MD Ot I25.10 09/07/2015 DESMOND PEGUERO MD Ot I50.9 09/11/2015 DESMOND PEGUERO MD Ot E78.5 09/11/2015 DESMOND PEGUERO MD Ot I10 09/11/2015 DESMOND PEGUERO MD Ot I25.10 09/11/2015 DESMOND PEGUERO MD Ot I50.9 09/13/2015 DESMOND PEGUERO MD Ot E78.5 09/13/2015 DESMOND PEGUERO MD Ot I10 09/13/2015 DESMOND PEGUERO MD Ot I25.10 09/13/2015 DESMOND PEGUERO MD Ot I50.9 09/17/2015 PHYLLIS ADAMS, KATERINA Gudino Ot T78.3XXA ANGIONEUROTIC EDEMA, INITIAL ENCOUNTER 09/18/2015 DESMOND PEGUERO MD Ot E78.5 09/18/2015 DESMOND PEGUERO MD Ot I10 09/18/2015 DESMOND PEGUERO MD Ot I25.10 09/18/2015 DESMOND PEGUERO MD Ot I50.9 10/25/2015 PHYLLIS ADAMS, KATERINA Gudino Ot J02.9 ACUTE PHARYNGITIS, UNSPECIFIED 10/27/2015 ALISSON ARGUETA MD Ot E78.5 HYPERLIPIDEMIA, UNSPECIFIED 10/27/2015 ALISSON ARGUETA MD Ot G47.33 OBSTRUCTIVE SLEEP APNEA (ADULT) (PEDIATR 10/27/2015 ALISSON ARGUETA MD Ot I10 ESSENTIAL (PRIMARY) HYPERTENSION 10/27/2015 ALISSON ARGUETA MD Ot I25.10 ATHSCL HEART DISEASE OF [place] CORONARY 10/27/2015 ALISSON ARGUETA MD Ot I25.2 OLD MYOCARDIAL INFARCTION 10/27/2015 ALISSON ARGUETA MD Ot I25.5 ISCHEMIC CARDIOMYOPATHY 10/27/2015 ALISSON ARGUETA MD Ot R73.09 OTHER ABNORMAL GLUCOSE 10/27/2015 ALISSON ARGUETA MD Ot T78.3XXA ANGIONEUROTIC EDEMA, INITIAL ENCOUNTER 10/27/2015 DESMOND PEGUERO MD Ot E66.9 OBESITY, UNSPECIFIED 10/27/2015 DESMOND PEGUERO MD Ot E78.5 HYPERLIPIDEMIA, UNSPECIFIED 10/27/2015 DESMOND PEGUERO MD, Ot I10 ESSENTIAL (PRIMARY) HYPERTENSION 10/27/2015 DESMOND PEGUERO MD Ot I25.10 ATHSCL HEART DISEASE OF [place] CORONARY 10/27/2015 DESMOND PEGUERO MD Ot R07.89 OTHER CHEST PAIN 10/27/2015 DESMOND PEGUERO MD Ot R94.39 ABNORMAL RESULT OF OTHER CARDIOVASCULAR 10/27/2015 DESMOND PEGUERO MD Ot T78.3XXD ANGIONEUROTIC EDEMA, SUBSEQUENT ENCOUNTE 10/27/2015 DESMOND PEGUERO MD, Ot Z68.39 BODY MASS INDEX (BMI) 39.0-39.9, ADULT 10/27/2015 DESMOND PEGUERO MD, Ot Z79.899 OTHER CONFECTIONERY LABORATORY MANAGER (CURRENT) DRUG THERAPY 10/27/2015 DESMOND PEGUERO MD, Ot Z87.891 PERSONAL HISTORY OF NICOTINE DEPENDENCE 10/27/2015 DESMOND PEGUERO MD, Ot Z98.61 CORONARY ANGIOPLASTY STATUS 11/03/2015 Ot 789.00 11/03/2015 Ot V72.84 11/03/2015 MADDIE ADAMS, DESMOND Prabhakar Ot 272.4 11/03/2015 MADDIE ADAMS, DESMOND Prabhakar Ot 397.0 11/03/2015 MADDIE ADAMS, DESMOND Prabhakar Ot 401.9 11/03/2015 MADDIE ADAMS, DESMOND Prabhakar Ot 414.00 11/03/2015 MADDIE ADAMS, DESMOND Prabhakar Ot 424.0 11/03/2015 MADDIE ADAMS, DESMOND Prabhakar Ot 428.0 11/03/2015 MADDIE ADAMS, DESMOND Prabhakar Ot 433.10 11/03/2015 MADDIE ADAMS, DESMOND Prabhakar Ot E78.5 11/03/2015 MADDIE ADAMS, DESMOND Prabhakar Ot I10 11/03/2015 MADDIE ADAMS, DESMOND Prabhakar Ot I25.10 11/03/2015 MADDIE ADAMS, DESMOND Prabhakar Ot I50.9 11/03/2015 MADDIE ADAMS, DESMOND rPabhakar Ot E78.5 11/03/2015 MADDIE ADAMS, DESMOND Prabhakar Ot I10 11/03/2015 MADDIE ADAMS, DESMOND Prabhakar Ot I25.10 11/03/2015 MADDIE ADAMS, DESMOND Prabhakar Ot I50.9 11/23/2015 MADDIE ADAMS, DESMOND Prabhakar Ot I65.23 12/10/2015 Ot T78.3XXA ANGIONEUROTIC EDEMA, INITIAL ENCOUNTER 12/12/2015 Ot T78.3XXA 12/18/2015 MADDIE ADAMS, DESMOND Prabhakar Ot I65.23 12/21/2015 Ot T78.3XXA 01/09/2016 MIKA DAVE MD Ot G47.33 OBSTRUCTIVE SLEEP APNEA (ADULT) (PEDIATR 01/11/2016 MIKA DAVE MD Ot G47.33 OBSTRUCTIVE SLEEP APNEA (ADULT) (PEDIATR 01/14/2016 MIKA DAVE MD Ot G47.33 OBSTRUCTIVE SLEEP APNEA (ADULT) (PEDIATR 03/07/2016 MIKA DAVE MD Ot G47.33 OBSTRUCTIVE SLEEP APNEA (ADULT) (PEDIATR 03/08/2016 MIKA DAVE MD Ot G47.30 SLEEP APNEA, UNSPECIFIED 03/08/2016 MIKA DAVE MD Ot G47.33 OBSTRUCTIVE SLEEP APNEA (ADULT) (PEDIATR 03/21/2016 MIKA DAVE MD Ot G47.30 SLEEP APNEA, UNSPECIFIED 03/23/2016 JOLIE ADAMS, MIKA Iglesias Ot G47.30 SLEEP APNEA, UNSPECIFIED 04/26/2016 DESMOND PEGUERO MD Ot E78.2 MIXED HYPERLIPIDEMIA 04/30/2016 DESMOND PEGUERO MD Ot E78.2 MIXED HYPERLIPIDEMIA 04/30/2016 DESMOND PEGUERO MD Ot I10 ESSENTIAL (PRIMARY) HYPERTENSION 04/30/2016 DESMOND PEGUERO MD Ot I25.10 ATHSCL HEART DISEASE OF [place] CORONARY 04/30/2016 DESMOND PEGUERO MD Ot K21.9 GASTRO-ESOPHAGEAL REFLUX DISEASE WITHOUT 04/30/2016 DESMOND PEGUERO MD Ot E78.2 MIXED HYPERLIPIDEMIA 04/30/2016 DESMOND PEGUERO MD Ot I10 ESSENTIAL (PRIMARY) HYPERTENSION 04/30/2016 DESMOND PEGUERO MD Ot I25.10 ATHSCL HEART DISEASE OF [place] CORONARY 04/30/2016 DESMOND PEGUERO MD Ot K21.9 GASTRO-ESOPHAGEAL REFLUX DISEASE WITHOUT 05/02/2016 DESMOND PEGUERO MD Ot E78.2 MIXED HYPERLIPIDEMIA 05/02/2016 DESMOND PEGUERO MD Ot I10 ESSENTIAL (PRIMARY) HYPERTENSION 05/02/2016 DESMOND PEGUERO MD Ot I25.10 ATHSCL HEART DISEASE OF [place] CORONARY 05/02/2016 DESMOND PEGUERO MD Ot K21.9 GASTRO-ESOPHAGEAL REFLUX DISEASE WITHOUT 05/17/2016 DESMOND PEGUERO MD Ot E78.2 MIXED HYPERLIPIDEMIA 05/17/2016 DESMOND PEGUERO MD Ot I10 ESSENTIAL (PRIMARY) HYPERTENSION 05/17/2016 DESMOND PEGUERO MD Ot I25.10 ATHSCL HEART DISEASE OF [place] CORONARY 05/17/2016 DESMOND PEGUERO MD Ot K21.9 GASTRO-ESOPHAGEAL REFLUX DISEASE WITHOUT 05/29/2016 DESMOND PEGUERO MD Ot E78.2 MIXED HYPERLIPIDEMIA 05/29/2016 DESMOND PEGUERO MD Ot I10 ESSENTIAL (PRIMARY) HYPERTENSION 05/29/2016 DESMOND PEGUERO MD Ot I25.10 ATHSCL HEART DISEASE OF [place] CORONARY 05/29/2016 DESMOND PEGUERO MD Ot K21.9 GASTRO-ESOPHAGEAL REFLUX DISEASE WITHOUT 07/26/2016 Ot 789.00 ABDOMINAL PAIN, UNSPECIFIED SITE 07/26/2016 Ot V72.84 EXAM PRE- OPERATIVE NOS 07/26/2016 DESMOND PEGUERO MD Ot 272.4 HYPERLIPIDEMIA NEC/NOS 07/26/2016 DESMOND PEGUERO MD Ot 397.0 TRICUSPID VALVE DISEASE 07/26/2016 DESMOND PEGUERO MD Ot 401.9 HYPERTENSION NOS 07/26/2016 DESMOND PEGUERO MD Ot 414.00 CORON ATHEROSCLER NOS TYPE VESSEL, NATIV 07/26/2016 DESMOND PEGUERO MD Ot 424.0 MITRAL VALVE DISORDER 07/26/2016 DESMOND PEGUERO MD Ot 428.0 CONGESTIVE HEART FAILURE NOS 07/26/2016 DESMOND PEGUERO MD Ot 433.10 CAROTID ARTERY OCCLUSION W O CEREBRAL IN 07/26/2016 DESMOND PEGUERO MD Ot E78.5 HYPERLIPIDEMIA, UNSPECIFIED 07/26/2016 DESMOND PEGUERO MD Ot I10 ESSENTIAL (PRIMARY) HYPERTENSION 07/26/2016 DESMOND PEGUERO MD Ot I25.10 ATHSCL HEART DISEASE OF [place] CORONARY 07/26/2016 DESMOND PEGUERO MD Ot I50.9 HEART FAILURE, UNSPECIFIED 07/26/2016 DESMOND PEGUERO MD Ot E78.5 HYPERLIPIDEMIA, UNSPECIFIED 07/26/2016 DESMOND PEGUERO MD Ot I10 ESSENTIAL (PRIMARY) HYPERTENSION 07/26/2016 DESMOND PEGUERO MD Ot I25.10 ATHSCL HEART DISEASE OF [place] CORONARY 07/26/2016 DESMOND PEGUERO MD Ot I50.9 HEART FAILURE, UNSPECIFIED 07/26/2016 DESMOND PEGUERO MD Ot I65.23 OCCLUSION AND STENOSIS OF [place]AL [place] 07/26/2016 DESMOND PEGUERO MD Ot E78.2 MIXED HYPERLIPIDEMIA 07/26/2016 DESMOND PEGUERO MD Ot I10 ESSENTIAL (PRIMARY) HYPERTENSION 07/26/2016 DESMOND PEGUERO MD Ot I25.10 ATHSCL HEART DISEASE OF [place] CORONARY 07/26/2016 DESMOND PEGUERO MD Ot K21.9 GASTRO-ESOPHAGEAL REFLUX DISEASE WITHOUT 07/29/2016 JAMEY KELLOGG Ot E78.2 MIXED HYPERLIPIDEMIA 07/29/2016 JAMEY KELLOGG Ot I10 ESSENTIAL (PRIMARY) HYPERTENSION 07/29/2016 JAMEY KELLOGG Ot I25.10 ATHSCL HEART DISEASE OF [place] CORONARY 07/29/2016 EDWARDS-DRAKE BAILON, JAMEY Mckenna Ot K21.9 GASTRO-ESOPHAGEAL REFLUX DISEASE WITHOUT 08/21/2016 EDWARDS-DRAKE BAILON, JAMEY Mckenna Ot E78.2 MIXED HYPERLIPIDEMIA 08/21/2016 EDWARDS-DRAKE BAILON JAMEY Clarisa Ot I10 ESSENTIAL (PRIMARY) HYPERTENSION 08/21/2016 EDWARDS-DRAKE BAILON JAMEY Clarisa Ot I25.10 ATHSCL HEART DISEASE OF [place] CORONARY 08/21/2016 EDWARDS-DRAKE BAILON JAMEY Mckenna Ot K21.9 GASTRO-ESOPHAGEAL REFLUX DISEASE WITHOUT 08/28/2016 EDWARDSMELO ADAMARIS, JAMEY Mckenna Ot E78.2 MIXED HYPERLIPIDEMIA 08/28/2016 EDWARDS-DRAKE BAILON JAMEY K Ot I10 ESSENTIAL (PRIMARY) HYPERTENSION 08/28/2016 EDWARDS-DRAKE BAILON JAMEY Clarisa Ot I25.10 ATHSCL HEART DISEASE OF [place] CORONARY 08/28/2016 EDWARDS-DRAKE BAILON JAMEY Clarisa Ot K21.9 GASTRO-ESOPHAGEAL REFLUX DISEASE WITHOUT 10/28/2016 Ot 789.00 ABDOMINAL PAIN, UNSPECIFIED SITE 10/28/2016 Ot V72.84 EXAM PRE- OPERATIVE NOS 10/28/2016 DESMOND PEGUERO MD Ot 272.4 HYPERLIPIDEMIA NEC/NOS 10/28/2016 DESMOND PEGUERO MD Ot 397.0 TRICUSPID VALVE DISEASE 10/28/2016 DESMOND PEGUERO MD Ot 401.9 HYPERTENSION NOS 10/28/2016 DESMOND PEGUERO MD Ot 414.00 CORON ATHEROSCLER NOS TYPE VESSEL, NATIV 10/28/2016 DESMOND PEGUERO MD Ot 424.0 MITRAL VALVE DISORDER 10/28/2016 DESMOND PEGUERO MD Ot 428.0 CONGESTIVE HEART FAILURE NOS 10/28/2016 DESMOND PEGUERO MD Ot 433.10 CAROTID ARTERY OCCLUSION W O CEREBRAL IN 10/28/2016 DESMOND PEGUERO MD Ot E78.5 HYPERLIPIDEMIA, UNSPECIFIED 10/28/2016 DESMOND PEGUERO MD Ot I10 ESSENTIAL (PRIMARY) HYPERTENSION 10/28/2016 DESMOND PEGUERO MD Ot I25.10 ATHSCL HEART DISEASE OF [place] CORONARY 10/28/2016 DESMOND PEGUERO MD Ot I50.9 HEART FAILURE, UNSPECIFIED 10/28/2016 DESMOND PEGUERO MD Ot E78.5 HYPERLIPIDEMIA, UNSPECIFIED 10/28/2016 DESMOND PEGUERO MD Ot I10 ESSENTIAL (PRIMARY) HYPERTENSION 10/28/2016 DESMOND PEGUERO MD Ot I25.10 ATHSCL HEART DISEASE OF [place] CORONARY 10/28/2016 DESMOND PEGUERO MD Ot I50.9 HEART FAILURE, UNSPECIFIED 10/28/2016 DESMOND PEGUERO MD Ot I65.23 OCCLUSION AND STENOSIS OF [place]ATERAL [place] 10/28/2016 DESMOND PEGUERO MD Ot E78.2 MIXED HYPERLIPIDEMIA 10/28/2016 DESMOND PEGUERO MD Ot I10 ESSENTIAL (PRIMARY) HYPERTENSION 10/28/2016 DESMOND PEGUERO MD Ot I25.10 ATHSCL HEART DISEASE OF [place] CORONARY 10/28/2016 DESMOND PEGUERO MD Ot K21.9 GASTRO-ESOPHAGEAL REFLUX DISEASE WITHOUT 10/28/2016 JAMEY KELLOGG Ot E78.2 MIXED HYPERLIPIDEMIA 10/28/2016 JAMEY KELLOGG Ot I10 ESSENTIAL (PRIMARY) HYPERTENSION 10/28/2016 JAMEY KELLOGG Ot I25.10 ATHSCL HEART DISEASE OF [place] CORONARY 10/28/2016 JAMEY KELLOGG Ot K21.9 GASTRO-ESOPHAGEAL REFLUX DISEASE WITHOUT 10/29/2016 Ot 564.00 UNSPEC CONSTIPATION 10/29/2016 Ot 569.89 INTESTINAL DISORDERS NEC 10/29/2016 Ot 789.00 ABDOMINAL PAIN, UNSPECIFIED SITE 01/10/2017 Ot 789.00 ABDOMINAL PAIN, UNSPECIFIED SITE 01/10/2017 Ot V72.84 EXAM PRE- OPERATIVE NOS 01/10/2017 DESMOND PEGUERO MD Ot 272.4 HYPERLIPIDEMIA NEC/NOS 01/10/2017 DESMOND PEGUERO MD Ot 397.0 TRICUSPID VALVE DISEASE 01/10/2017 DESMOND PEGUERO MD Ot 401.9 HYPERTENSION NOS 01/10/2017 DESMOND PEGUERO MD Ot 414.00 CORON ATHEROSCLER NOS TYPE VESSEL, NATIV 01/10/2017 DESMOND PEGUERO MD Ot 424.0 MITRAL VALVE DISORDER 01/10/2017 DESMOND PEGUERO MD Ot 428.0 CONGESTIVE HEART FAILURE NOS 01/10/2017 DESMOND PEGUERO MD Ot 433.10 CAROTID ARTERY OCCLUSION W O CEREBRAL IN 01/10/2017 DESMOND PEGUERO MD Ot E78.5 HYPERLIPIDEMIA, UNSPECIFIED 01/10/2017 DESMOND PEGUERO MD Ot I10 ESSENTIAL (PRIMARY) HYPERTENSION 01/10/2017 DESMOND PEGUERO MD Ot I25.10 ATHSCL HEART DISEASE OF [place] CORONARY 01/10/2017 DESMOND PEGUERO MD Ot I50.9 HEART FAILURE, UNSPECIFIED 01/10/2017 DESMOND PEGUERO MD Ot E78.5 HYPERLIPIDEMIA, UNSPECIFIED 01/10/2017 DESMOND PEGUERO MD Ot I10 ESSENTIAL (PRIMARY) HYPERTENSION 01/10/2017 DESMOND PEGUERO MD Ot I25.10 ATHSCL HEART DISEASE OF [place] CORONARY 01/10/2017 DESMOND PEGUERO MD Ot I50.9 HEART FAILURE, UNSPECIFIED 01/10/2017 DESMOND PEGUERO MD Ot I65.23 OCCLUSION AND STENOSIS OF [place]AL [place] 01/10/2017 DESMOND PEGUERO MD Ot E78.2 MIXED HYPERLIPIDEMIA 01/10/2017 DESMOND PEGUERO MD Ot I10 ESSENTIAL (PRIMARY) HYPERTENSION 01/10/2017 DESMOND PEGUERO MD Ot I25.10 ATHSCL HEART DISEASE OF [place] CORONARY 01/10/2017 DESMOND PEGUERO MD Ot K21.9 GASTRO-ESOPHAGEAL REFLUX DISEASE WITHOUT 01/10/2017 JAMEY KELLOGG Ot E78.2 MIXED HYPERLIPIDEMIA 01/10/2017 JAMEY KELLOGG Ot I10 ESSENTIAL (PRIMARY) HYPERTENSION 01/10/2017 JAMEY KELLOGG Ot I25.10 ATHSCL HEART DISEASE OF [place] CORONARY 01/10/2017 JAMEY KELLOGG Ot K21.9 GASTRO-ESOPHAGEAL REFLUX DISEASE WITHOUT 01/11/2017 Ot 564.00 UNSPEC CONSTIPATION 01/11/2017 Ot 569.89 INTESTINAL DISORDERS NEC 01/11/2017 Ot 789.00 ABDOMINAL PAIN, UNSPECIFIED SITE 03/18/2017 JAMEY KELLOGG Ot I10 ESSENTIAL (PRIMARY) HYPERTENSION 03/18/2017 JAMEY KELLOGG Ot I25.10 ATHSCL HEART DISEASE OF [place] CORONARY 03/18/2017 JAMEY KELLOGG Ot I34.0 NONRHEUMATIC MITRAL (VALVE) INSUFFICIENC 03/18/2017 JAMEY KELLOGG Ot I51.7 CARDIOMEGALY 03/21/2017 JAMEY KELLOGG Ot I25.10 ATHSCL HEART DISEASE OF [place] CORONARY 04/02/2017 JAMEY KELLOGG Ot I25.10 ATHSCL HEART DISEASE OF [place] CORONARY 04/08/2017 JAMEY KELLOGG Ot I10 ESSENTIAL (PRIMARY) HYPERTENSION 04/08/2017 JAMEY KELLOGG Ot I25.10 ATHSCL HEART DISEASE OF [place] CORONARY 04/08/2017 JAMEY KELLOGG Ot I34.0 NONRHEUMATIC MITRAL (VALVE) INSUFFICIENC 04/08/2017 JAMEY KELLOGG Ot I51.7 CARDIOMEGALY 06/11/2017 DESMOND PEGUERO MD Ot E78.5 HYPERLIPIDEMIA, UNSPECIFIED 06/11/2017 DESMOND PEGUERO MD Ot I10 ESSENTIAL (PRIMARY) HYPERTENSION 06/11/2017 DESMOND PEGUERO MD Ot I25.10 ATHSCL HEART DISEASE OF [place] CORONARY 06/11/2017 DESMOND PEGUERO MD Ot I25.5 ISCHEMIC CARDIOMYOPATHY 06/11/2017 DESMOND PEGUERO MD Ot I44.7 LEFT BUNDLE-BRANCH BLOCK, UNSPECIFIED 06/11/2017 DESMOND PEGUERO MD Ot I65.23 OCCLUSION AND STENOSIS OF [place] 06/11/2017 DESMOND PEGUERO MD Ot R94.39 ABNORMAL RESULT OF OTHER CARDIOVASCULAR 06/11/2017 DESMOND PEGUERO MD Ot Z79.899 OTHER CONFECTIONERY LABORATORY MANAGER (CURRENT) DRUG THERAPY 06/11/2017 DESMOND PEGUERO MD Ot Z87.891 PERSONAL HISTORY OF NICOTINE DEPENDENCE 06/11/2017 DESMOND PEGUERO MD Ot Z95.5 PRESENCE OF CORONARY ANGIOPLASTY IMPLANT 06/24/2017 JAMEY KELLOGG Ot I11.9 HYPERTENSIVE HEART DISEASE WITHOUT HEART 06/24/2017 JAMEY KELLOGG Ot I25.10 ATHSCL HEART DISEASE OF [place] CORONARY 06/24/2017 JAMEY KELLOGG Ot I34.0 NONRHEUMATIC MITRAL (VALVE) INSUFFICIENC 07/09/2017 DESMOND PEGUERO MD Ot E78.5 HYPERLIPIDEMIA, UNSPECIFIED 07/09/2017 DESMOND PEGUERO MD Ot I10 ESSENTIAL (PRIMARY) HYPERTENSION 07/09/2017 DESMOND PEGUERO MD Ot I25.10 ATHSCL HEART DISEASE OF [place] CORONARY 07/09/2017 DESMOND PEGUERO MD Ot I25.5 ISCHEMIC CARDIOMYOPATHY 07/09/2017 DESMOND PEGUERO MD Ot I44.7 LEFT BUNDLE-BRANCH BLOCK, UNSPECIFIED 07/09/2017 DESMOND PEGUERO MD Ot I65.23 OCCLUSION AND STENOSIS OF [place] 07/09/2017 DESMOND PEGUERO MD Ot R94.39 ABNORMAL RESULT OF OTHER CARDIOVASCULAR 07/09/2017 DESMOND PEGUERO MD Ot Z79.899 OTHER CONFECTIONERY LABORATORY MANAGER (CURRENT) DRUG THERAPY 07/09/2017 DESMOND PEGUERO MD, Ot Z87.891 PERSONAL HISTORY OF NICOTINE DEPENDENCE 07/09/2017 DESMOND PEGUERO MD, Ot Z95.5 PRESENCE OF CORONARY ANGIOPLASTY IMPLANT 07/18/2017 JAMEY KELLOGG Ot I10 ESSENTIAL (PRIMARY) HYPERTENSION 07/18/2017 JAMEY KELLOGG Ot I25.10 ATHSCL HEART DISEASE OF [place] CORONARY 07/18/2017 JAMEY KELLOGG Ot I34.0 NONRHEUMATIC MITRAL (VALVE) INSUFFICIENC 07/18/2017 JAMEY KELLOGG Ot I51.7 CARDIOMEGALY 07/18/2017 JAMEY KELLOGG Ot I11.9 HYPERTENSIVE HEART DISEASE WITHOUT HEART 07/18/2017 JAMEY KELLOGG Ot I25.10 ATHSCL HEART DISEASE OF [place] CORONARY 07/18/2017 JAMEY KELLOGG Ot I34.0 NONRHEUMATIC MITRAL (VALVE) INSUFFICIENC 07/18/2017 Ot 789.00 ABDOMINAL PAIN, UNSPECIFIED SITE 07/18/2017 Ot V72.84 EXAM PRE- OPERATIVE NOS 07/18/2017 DESMOND PEGUERO MD Ot 272.4 HYPERLIPIDEMIA NEC/NOS 07/18/2017 DESMOND PEGUERO MD Ot 397.0 TRICUSPID VALVE DISEASE 07/18/2017 DESMOND PEGUERO MD Ot 401.9 HYPERTENSION NOS 07/18/2017 DESMOND PEGUERO MD Ot 414.00 CORON ATHEROSCLER NOS TYPE VESSEL, NATIV 07/18/2017 DESMOND PEGUERO MD Ot 424.0 MITRAL VALVE DISORDER 07/18/2017 DESMOND PEGUERO MD Ot 428.0 CONGESTIVE HEART FAILURE NOS 07/18/2017 DESMOND PEGUERO MD Ot 433.10 CAROTID ARTERY OCCLUSION W O CEREBRAL IN 07/18/2017 DESMOND PEGUERO MD Ot E78.5 HYPERLIPIDEMIA, UNSPECIFIED 07/18/2017 DESMOND PEGUERO MD Ot I10 ESSENTIAL (PRIMARY) HYPERTENSION 07/18/2017 DESMOND PEGUERO MD Ot I25.10 ATHSCL HEART DISEASE OF [place] CORONARY 07/18/2017 DSEMOND PEGUERO MD Ot I50.9 HEART FAILURE, UNSPECIFIED 07/18/2017 DESMOND PEGUERO MD Ot E78.5 HYPERLIPIDEMIA, UNSPECIFIED 07/18/2017 DESMOND PEGUERO MD Ot I10 ESSENTIAL (PRIMARY) HYPERTENSION 07/18/2017 DESMOND PEGUERO MD Ot I25.10 ATHSCL HEART DISEASE OF [place] CORONARY 07/18/2017 DESMOND PEGUERO MD Ot I50.9 HEART FAILURE, UNSPECIFIED 07/18/2017 DESMOND PEGUERO MD Ot I65.23 OCCLUSION AND STENOSIS OF [place] 07/18/2017 DESMOND PEGUERO MD Ot E78.2 MIXED HYPERLIPIDEMIA 07/18/2017 DESMOND PEGUERO MD Ot I10 ESSENTIAL (PRIMARY) HYPERTENSION 07/18/2017 DESMOND PEGUERO MD Ot I25.10 ATHSCL HEART DISEASE OF [place] CORONARY 07/18/2017 DESMOND PEGUERO MD Ot K21.9 GASTRO-ESOPHAGEAL REFLUX DISEASE WITHOUT 07/18/2017 JAMEY KELLOGG Ot E78.2 MIXED HYPERLIPIDEMIA 07/18/2017 JAMEY KELLOGG Ot I10 ESSENTIAL (PRIMARY) HYPERTENSION 07/18/2017 JAMEY KELLOGG Ot I25.10 ATHSCL HEART DISEASE OF [place] CORONARY 07/18/2017 JAMEY KELLOGG Ot K21.9 GASTRO-ESOPHAGEAL REFLUX DISEASE WITHOUT 07/18/2017 EDWARDS-DRAKE PA, JAMEY K Ot I10 ESSENTIAL (PRIMARY) HYPERTENSION 07/18/2017 MAHAMED BAILON, JAMEY Mckenna Ot I25.10 ATHSCL HEART DISEASE OF [place] CORONARY 07/18/2017 MAHAMED BAILON, JAMEY Mckenna Ot I34.0 NONRHEUMATIC MITRAL (VALVE) INSUFFICIENC 07/18/2017 MAHAMED BAILON JAMEY Clarisa Ot I51.7 CARDIOMEGALY 07/18/2017 MAHAMED BAILON JAMEY Clarisa Ot I11.9 HYPERTENSIVE HEART DISEASE WITHOUT HEART 07/18/2017 MAHAMED BAILON JAMEY Mckenna Ot I25.10 ATHSCL HEART DISEASE OF [place] CORONARY 07/18/2017 MAHAMED BAILON JAMEY Mckenna Ot I34.0 NONRHEUMATIC MITRAL (VALVE) INSUFFICIENC 09/23/2017 MAHAMED BAILON JAMEY K Ot I10 ESSENTIAL (PRIMARY) HYPERTENSION 09/23/2017 MAHAMED BAILON JAMEY K Ot I25.10 ATHSCL HEART DISEASE OF [place] CORONARY 09/23/2017 MAHAMED BAILON JAMEY Mckenna Ot I34.0 NONRHEUMATIC MITRAL (VALVE) INSUFFICIENC 09/23/2017 MAHAMED BAILON JAMEY Mckenna Ot I51.7 CARDIOMEGALY 09/23/2017 MAHAMED BAILON JAMEY Mckenna Ot I11.9 HYPERTENSIVE HEART DISEASE WITHOUT HEART 09/23/2017 MAHAMED BAILON JAMEY Mckenna Ot I25.10 ATHSCL HEART DISEASE OF [place] CORONARY 09/23/2017 MAHAMED BAILON JAMEY Mckenna Ot I34.0 NONRHEUMATIC MITRAL (VALVE) INSUFFICIENC 10/02/2017 MAHAMED BAILON JAMEY Mckenna Ot E78.2 MIXED HYPERLIPIDEMIA 10/22/2017 MAHAMED BAILON, JAMEY Mckenna Ot E78.2 MIXED HYPERLIPIDEMIA 01/08/2018 Ot V72.84 EXAM PRE- OPERATIVE NOS 01/08/2018 DESMOND PEGUERO MD Ot 272.4 HYPERLIPIDEMIA NEC/NOS 01/08/2018 DESMOND PEGUERO MD Ot 397.0 TRICUSPID VALVE DISEASE 01/08/2018 DESMOND PEGUERO MD Ot 401.9 HYPERTENSION NOS 01/08/2018 DESMOND PEGUERO MD Ot 414.00 CORON ATHEROSCLER NOS TYPE VESSEL, NATIV 01/08/2018 DESMOND PEGUERO MD Ot 424.0 MITRAL VALVE DISORDER 01/08/2018 DESMOND PEGUERO MD Ot 428.0 CONGESTIVE HEART FAILURE NOS 01/08/2018 DESMOND PEGUERO MD Ot 433.10 CAROTID ARTERY OCCLUSION W O CEREBRAL IN 01/08/2018 DESMOND PEGUERO MD Ot E78.5 HYPERLIPIDEMIA, UNSPECIFIED 01/08/2018 DESMOND PEGUERO MD Ot I10 ESSENTIAL (PRIMARY) HYPERTENSION 01/08/2018 DESMOND PEGUERO MD Ot I25.10 ATHSCL HEART DISEASE OF [place] CORONARY 01/08/2018 DESMOND PEGUERO MD Ot I50.9 HEART FAILURE, UNSPECIFIED 01/08/2018 DESMOND PEGUERO MD Ot E78.5 HYPERLIPIDEMIA, UNSPECIFIED 01/08/2018 DESMOND PEGUERO MD Ot I10 ESSENTIAL (PRIMARY) HYPERTENSION 01/08/2018 DESMOND PEGUERO MD Ot I25.10 ATHSCL HEART DISEASE OF [place] CORONARY 01/08/2018 DESMOND PEGUERO MD Ot I50.9 HEART FAILURE, UNSPECIFIED 01/08/2018 DESMOND PEGUERO MD Ot I65.23 OCCLUSION AND STENOSIS OF BILATERAL [place] 01/08/2018 DESMOND PEGUERO MD Ot E78.2 MIXED HYPERLIPIDEMIA 01/08/2018 DESMOND PEGUERO MD Ot I10 ESSENTIAL (PRIMARY) HYPERTENSION 01/08/2018 DESMOND PGEUERO MD Ot I25.10 ATHSCL HEART DISEASE OF [place] CORONARY 01/08/2018 DESMOND PEGUERO MD Ot K21.9 GASTRO-ESOPHAGEAL REFLUX DISEASE WITHOUT 01/08/2018 JAMEY KELLOGG Ot E78.2 MIXED HYPERLIPIDEMIA 01/08/2018 JAMEY KELLOGG Ot I10 ESSENTIAL (PRIMARY) HYPERTENSION 01/08/2018 JAMEY KELLOGG Ot I25.10 ATHSCL HEART DISEASE OF [place] CORONARY 01/08/2018 JAMEY KELLOGG Ot K21.9 GASTRO-ESOPHAGEAL REFLUX DISEASE WITHOUT 01/08/2018 JAMEY KELLOGG Ot I10 ESSENTIAL (PRIMARY) HYPERTENSION 01/08/2018 JAMEY KELLOGG Ot I25.10 ATHSCL HEART DISEASE OF [place] CORONARY 01/08/2018 JAMEY KELLOGG Ot I34.0 NONRHEUMATIC MITRAL (VALVE) INSUFFICIENC 01/08/2018 JAMEY KELLOGG Ot I51.7 CARDIOMEGALY 01/08/2018 JAMEY KELLOGG Ot I11.9 HYPERTENSIVE HEART DISEASE WITHOUT HEART 01/08/2018 JAMEY KELLOGG Ot I25.10 ATHSCL HEART DISEASE OF [place] CORONARY 01/08/2018 JAMEY KELLOGG Ot I34.0 NONRHEUMATIC MITRAL (VALVE) INSUFFICIENC 01/08/2018 JAMEY KELLOGG Ot E78.2 MIXED HYPERLIPIDEMIA 01/08/2018 JAMEY KELLOGG Ot E78.2 MIXED HYPERLIPIDEMIA 01/09/2018 JAMEY KELLOGG Ot E78.5 HYPERLIPIDEMIA, UNSPECIFIED 01/09/2018 JAMEY KELLOGG Ot I10 ESSENTIAL (PRIMARY) HYPERTENSION 01/09/2018 JAMEY KELLOGG Ot I25.10 ATHSCL HEART DISEASE OF [place] CORONARY 01/17/2018 CALEB MAYES MD, Ot E78.00 PURE HYPERCHOLESTEROLEMIA, UNSPECIFIED 01/17/2018 CALEB MAYES MD Ot I10 ESSENTIAL (PRIMARY) HYPERTENSION 01/17/2018 CALEB MAYES MD Ot I25.10 ATHSCL HEART DISEASE OF [place] CORONARY 01/17/2018 CALEB MAYES MD Ot K14.8 OTHER DISEASES OF TONGUE 01/17/2018 CALEB MAYES MD Ot K21.9 GASTRO-ESOPHAGEAL REFLUX DISEASE WITHOUT 01/17/2018 CALEB MAYES MD Ot T78.3XXA ANGIONEUROTIC EDEMA, INITIAL ENCOUNTER 01/17/2018 CALEB MAYES MD Ot Z79.02 CORRECTION (CURRENT) USE OF ANTITHROMBOTI 01/17/2018 CALEB MAYES MD Ot Z79.82 CORRECTION (CURRENT) USE OF ASPIRIN 01/17/2018 CALEB MAYES MD Ot Z82.49 FAMILY HX OF ISCHEM HEART DIS AND OTH DI 01/17/2018 CALEB MAYES MD, Ot Z87.891 PERSONAL HISTORY OF NICOTINE DEPENDENCE 01/17/2018 CALEB MAYES MD Ot Z88.0 ALLERGY STATUS TO PENICILLIN 01/17/2018 CALEB MAYES MD, Ot Z88.8 ALLERGY STATUS TO OTH DRUG/MEDS/BIOL SUB 01/17/2018 CALEB MAYES MD, Ot Z90.49 ACQUIRED ABSENCE OF OTHER SPECIFIED PART 01/17/2018 CALEB MAYES MD Ot Z95.5 PRESENCE OF CORONARY ANGIOPLASTY IMPLANT 01/19/2018 CALEB MAYES MD Ot E78.00 PURE HYPERCHOLESTEROLEMIA, UNSPECIFIED 01/19/2018 CALEB MAYES MD Ot I10 ESSENTIAL (PRIMARY) HYPERTENSION 01/19/2018 CALEB MAYES MD, Ot I25.10 ATHSCL HEART DISEASE OF [place] CORONARY 01/19/2018 CALEB MAYES MD Ot K14.8 OTHER DISEASES OF TONGUE 01/19/2018 CALEB MAYES MD Ot K21.9 GASTRO-ESOPHAGEAL REFLUX DISEASE WITHOUT 01/19/2018 CALEB MAYES MD Ot T78.3XXA ANGIONEUROTIC EDEMA, INITIAL ENCOUNTER 01/19/2018 CALEB MAYES MD Ot Z79.02 CONFECTIONERY LABORATORY MANAGER (CURRENT) USE OF ANTITHROMBOTI 01/19/2018 CALEB MAYES MD Ot Z79.82 CONFECTIONERY LABORATORY MANAGER (CURRENT) USE OF ASPIRIN 01/19/2018 CALEB MAYES MD Ot Z82.49 FAMILY HX OF ISCHEM HEART DIS AND OTH DI 01/19/2018 CALEB MAYES MD, Ot Z87.891 PERSONAL HISTORY OF NICOTINE DEPENDENCE 01/19/2018 CALEB MAYES MD Ot Z88.0 ALLERGY STATUS TO PENICILLIN 01/19/2018 CALEB MAYES MD Ot Z88.8 ALLERGY STATUS TO OTH DRUG/MEDS/BIOL SUB 01/19/2018 CALEB MAYES MD Ot Z90.49 ACQUIRED ABSENCE OF OTHER SPECIFIED PART 01/19/2018 CALEB MAYES MD Ot Z95.5 PRESENCE OF CORONARY ANGIOPLASTY IMPLANT 01/28/2018 JAMEY KELLOGG Ot E78.5 HYPERLIPIDEMIA, UNSPECIFIED 01/28/2018 JAMEY KELLOGG Ot I10 ESSENTIAL (PRIMARY) HYPERTENSION 01/28/2018 JAMEY KELLOGG Ot I25.10 ATHSCL HEART DISEASE OF [place] CORONARY Procedures Code [place] [address] THERAPUTIC INJ SQ/IM 07/20/2012 J2930 SOLUMEDROL INJ 07/20/2012 50274 A1C (IN-HOUSE) 08/10/2012 50472 UA LONG DIP 08/10/2012 36954 MICRO ALBUMIN-IN HOUSE 08/10/2012 50016 ROUTINE VENIPUNCTURE 08/12/2012 Sergio Amaro 08/12/2012 44163 CMP 08/12/2012 94074 CBC 08/12/2012 19635 CRP 08/12/2012 26353 THERAPUTIC INJ SQ/IM 09/04/2012 J2930 SOLUMEDROL INJ 09/04/2012 01974 ROUTINE VENIPUNCTURE 09/15/2012 14062 PSA TOTAL 09/16/2012 12803 THERAPUTIC INJ SQ/IM 09/30/2012 J2930 SOLUMEDROL INJ 09/30/2012 31119 ROUTINE VENIPUNCTURE 10/16/2012 12884 CBC 10/16/2012 40306 CRP 10/16/2012 48286 UA LONG DIP 10/26/2012 75741 OXIMETRY 10/27/2012 43678 HEMOCCULT 11/03/2012 04509 HEMOCCULT 11/03/2012 03040 A1C (IN-HOUSE) 12/08/2012 19125 THERAPUTIC INJ SQ/IM 12/14/2012 J2930 SOLUMEDROL INJ 12/14/2012 58684 THERAPUTIC INJ SQ/IM 03/02/2013 J2930 SOLUMEDROL INJ 03/02/2013 36254 US CAROTID DOPPLER 03/12/2013 84130 OXIMETRY 03/12/2013 07041 ROUTINE VENIPUNCTURE 04/12/2013 20124 A1C (IN-HOUSE) 04/12/2013 00241 CMP 04/12/2013 8238539 GFR CALC (RESULT ONLY) 04/12/2013 92135 ROUTINE VENIPUNCTURE 04/26/2013 27905 LIPID PANEL 04/26/2013 01070 OXIMETRY 05/14/2013 32804 STRESS TEST, CARDIAC ( SPECIFY TYPE) 05/14/2013 53048 ECHO 2D 05/14/2013 99227 JOSEPHINE 05/14/2013 Cardiolog Desmond Peguero 05/18/2013 J2930 SOLUMEDROL INJ 07/02/2013 36268 THERAPUTIC INJ SQ/IM 07/02/2013 48278 ROUTINE VENIPUNCTURE 09/03/2013 19541 A1C (IN-HOUSE) 09/03/2013 08240 CBC 09/03/2013 67255 CMP 09/03/2013 24378 LIPID PANEL 09/03/2013 89279 MAGNESIUM 09/03/2013 9572998 GFR CALC (RESULT ONLY) 09/03/2013 91131 TSH 09/03/2013 52395 OXIMETRY 09/18/2013 23609 ROUTINE VENIPUNCTURE 11/04/2013 0010726 GFR CALC (RESULT ONLY) 11/04/2013 09401 CMP 11/04/2013 43895 LIPID PANEL 11/04/2013 J2930 SOLUMEDROL INJ 11/15/2013 90580 THERAPUTIC INJ SQ/IM 11/15/2013 72129 THERAPUTIC INJ SQ/IM 12/13/2013 J2930 SOLUMEDROL INJ 12/13/2013 J2930 SOLUMEDROL INJ 09/26/2014 60360 ROUTINE VENIPUNCTURE 12/14/2014 62049 CBC 12/14/2014 9588387 GFR CALC (RESULT ONLY) 12/14/2014 46335 CMP 12/14/2014 56092 LIPID PANEL 12/14/2014 Results Test Result Range Comprehensive metabolic panel - 07/26/16 08:13 Serum or plasma sodium measurement (moles/volume) 141 mmol/L 135-145 Serum or plasma potassium measurement (moles/volume) 4.3 mmol/L 3.6-5.0 Serum or plasma chloride measurement (moles/volume) 108 mmol/L 98-107 Carbon dioxide 24 mmol/L 21-32 Serum or plasma anion gap determination (moles/volume) 9 mmol/L 5-14 Serum or plasma urea nitrogen measurement (mass/volume) 14 mg/dL 7-18 Serum or plasma creatinine measurement (mass/volume) 0.85 mg/dL 0.60-1.30 Serum or plasma urea nitrogen/creatinine mass ratio 16 NRG Serum or plasma creatinine measurement with calculation of estimated glomerular filtration rate > NRG Serum or plasma glucose measurement (mass/volume) 97 mg/dL 70-105 Serum or plasma calcium measurement (mass/volume) 9.4 mg/dL 8.5-10.1 Serum or plasma total bilirubin measurement (mass/volume) 0.4 mg/dL 0.1-1.0 Serum or plasma alkaline phosphatase measurement (enzymatic activity/volume) 56 U/L 40-136 Serum or plasma aspartate aminotransferase measurement (enzymatic activity/ volume) 22 U/L 5-34 Serum or plasma alanine aminotransferase measurement (enzymatic activity/volume ) 16 U/L 0-55 Serum or plasma protein measurement (mass/volume) 7.3 g/dL 6.4-8.2 Serum or plasma albumin measurement (mass/volume) 4.1 g/dL 3.2-4.5 Lipid 1996 panel - 07/26/16 08:13 Serum or plasma triglyceride measurement (mass/volume) 62 mg/dL <150 Serum or plasma cholesterol measurement (mass/volume) 195 mg/dL < 200 Serum or plasma cholesterol in HDL measurement (mass/volume) 47 mg/ dL 40-60 Cholesterol in LDL [mass/volume] in serum or plasma by direct assay 134 mg/dL 1-129 Serum or plasma cholesterol in VLDL measurement (mass/volume) 12 mg/ dL 5-40 Automated blood complete blood count (hemogram) panel - 06/11/17 11:55 Blood leukocytes automated count (number/volume) 6.4 10*3/uL 4.3-11.0 Blood erythrocytes automated count (number/volume) 4.97 10*6/uL 4.35-5.85 Venous blood hemoglobin measurement (mass/volume) 14.8 g/dL 13.3-17.7 Blood hematocrit (volume fraction) 45 % 40-54 Automated erythrocyte mean corpuscular volume 90 [foz_us] 80-99 Automated erythrocyte mean corpuscular hemoglobin (mass per erythrocyte) 30 pg 25-34 Automated erythrocyte mean corpuscular hemoglobin concentration measurement ( mass/volume) 33 g/dL 32-36 Automated erythrocyte distribution width ratio 13.8 % 10.0-14.5 Automated blood platelet count (count/volume) 217 10*3/uL 130-400 Automated blood platelet mean volume measurement 11.5 [foz_us] 7.4-10.4 Complete urinalysis with reflex to culture - 06/11/17 11:55 Urine color determination YELLOW NRG Urine clarity determination SLIGHTLY CLOUDY NRG Urine pH measurement by test strip 8 5-9 Specific gravity of urine by test strip 1.015 1.016- 1.022 Urine protein assay by test strip, semi-quantitative NEGATIVE NEGATIVE Urine glucose detection by automated test strip NEGATIVE NEGATIVE Erythrocytes detection in urine sediment by light microscopy NEGATIVE NEGATIVE Urine ketones detection by automated test strip NEGATIVE NEGATIVE Urine nitrite detection by test strip NEGATIVE NEGATIVE Urine total bilirubin detection by test strip NEGATIVE NEGATIVE Urine urobilinogen measurement by automated test strip (mass/volume) NORMAL NORMAL Urine leukocyte esterase detection by dipstick NEGATIVE NEGATIVE Automated urine sediment erythrocyte count by microscopy (number/high power field) NONE NRG Automated urine sediment leukocyte count by microscopy (number/high power field ) NONE NRG Bacteria detection in urine sediment by light microscopy NEGATIVE NRG Squamous epithelial cells detection in urine sediment by light microscopy 10-25 NRG Crystals detection in urine sediment by light microscopy PRESENT NRG Casts detection in urine sediment by light microscopy NONE NRG Mucus detection in urine sediment by light microscopy SMALL NRG Complete urinalysis with reflex to culture NO NRG Amorphous sediment detection in urine sediment by light microscopy MOD SOCORRO PHOSPHATE NRG PT panel in platelet poor plasma by coagulation assay - 06/11/17 11:55 Prothrombin time (PT) in platelet poor plasma by coagulation assay 12.8 s 12.2-14.7 INR in platelet poor plasma or blood by coagulation assay 1.0 0.8-1.4 Activated partial thromboplastin time (aPTT) in platelet poor plasma bycoagulation assay - 06/11/17 11:55 Activated partial thromboplastin time (aPTT) in platelet poor plasma bycoagulation assay 27 s 24-35 Comprehensive metabolic panel - 06/11/17 11:55 Serum or plasma sodium measurement (moles/volume) 139 mmol/L 135-145 Serum or plasma potassium measurement (moles/volume) 3.8 mmol/L 3.6-5.0 Serum or plasma chloride measurement (moles/volume) 105 mmol/L 98-107 Carbon dioxide 27 mmol/L 21-32 Serum or plasma anion gap determination (moles/volume) 7 mmol/L 5-14 Serum or plasma urea nitrogen measurement (mass/volume) 14 mg/dL 7-18 Serum or plasma creatinine measurement (mass/volume) 0.84 mg/dL 0.60-1.30 Serum or plasma urea nitrogen/creatinine mass ratio 17 NRG Serum or plasma creatinine measurement with calculation of estimated glomerular filtration rate > NRG Serum or plasma glucose measurement (mass/volume) 96 mg/dL 70-105 Serum or plasma calcium measurement (mass/volume) 9.9 mg/dL 8.5-10.1 Serum or plasma total bilirubin measurement (mass/volume) 0.6 mg/dL 0.1-1.0 Serum or plasma alkaline phosphatase measurement (enzymatic activity/volume) 63 U/L 40-136 Serum or plasma aspartate aminotransferase measurement (enzymatic activity/ volume) 19 U/L 5-34 Serum or plasma alanine aminotransferase measurement (enzymatic activity/volume ) 21 U/L 0-55 Serum or plasma protein measurement (mass/volume) 7.7 g/dL 6.4-8.2 Serum or plasma albumin measurement (mass/volume) 4.1 g/dL 3.2-4.5 Lipid 1996 panel - 06/11/17 11:55 Serum or plasma triglyceride measurement (mass/volume) 128 mg/dL <150 Serum or plasma cholesterol measurement (mass/volume) 206 mg/dL < 200 Serum or plasma cholesterol in HDL measurement (mass/volume) 48 mg/ dL 40-60 Cholesterol in LDL [mass/volume] in serum or plasma by direct assay 134 mg/dL 1-129 Serum or plasma cholesterol in VLDL measurement (mass/volume) 26 mg/ dL 5-40 Methicillin resistant Staphylococcus aureus (MRSA) screening culture - 11:55 Methicillin resistant Staphylococcus aureus (MRSA) screening culture NEG NRG Encounters ACCT No. Visit Date/Time Discharge Status Pt. Type Provider Facility Loc./Unit Complaint [id number] 12/14/2014 08:51:00 12/14/2014 23:59:59 CLS Outpatient MIKA DAVE MD [id number] 09/26/2014 12:51:00 09/26/2014 23:59:59 CLS Outpatient GILDARDO BAZZI DO [id number] 05/05/2014 16:40:00 05/05/2014 23:59:59 CLS Outpatient [id number] 03/01/2014 14:38:00 03/01/2014 23:59:59 CLS Outpatient MIKA DAVE MD [id number] 01/14/2014 09:05:00 01/14/2014 23:59:59 CLS Outpatient GILDARDO BAZZI DO [id number] 12/13/2013 10:48:00 12/13/2013 23:59:59 CLS Outpatient GILDARDO BAZZI DO [id number] 12/13/2013 10:48:00 12/13/2013 23:59:59 CLS Outpatient BAZZI DOGILDARDO [id number] 11/15/2013 08:51:00 11/15/2013 23:59:59 CLS Outpatient MIKA DAVE MD [id number] 11/04/2013 13:46:00 11/04/2013 23:59:59 CLS Outpatient MIKA DAVE MD [id number] 10/15/2013 09:49:00 10/15/2013 23:59:59 CLS Outpatient ROSE MARY DOGILDARDO [id number] 09/18/2013 13:46:00 09/18/2013 23:59:59 CLS Outpatient BRIDGETTFRANCES BERNAL ZUNILDA Lizy [id number] 09/09/2013 12:20:00 09/09/2013 23:59:59 CLS Outpatient BRIDGETT BERNAL ZUNILDA Lizy [id number] 09/03/2013 08:41:00 09/03/2013 23:59:59 CLS Outpatient MIKA DAVE MD [id number] 07/02/2013 09:10:00 07/02/2013 23:59:59 CLS Outpatient ROSE MARY DOGILDARDO [id number] 05/14/2013 09:05:00 05/14/2013 23:59:59 CLS Outpatient ROSE MARY DOGILDARDO [id number] 12/14/2012 10:32:00 12/14/2012 23:59:59 CLS Outpatient BAZZI DOGILADRDO [id number] 11/09/2012 15:28:00 11/09/2012 23:59:59 CLS Outpatient GILDARDO BAZZI DO [id number] 11/09/2012 00:00:00 11/09/2012 23:59:59 CLS Outpatient BAZZI DOGILDARDO [id number] 11/03/2012 09:07:00 11/03/2012 23:59:59 CLS Outpatient SERGIO OCONNELL MD [id number] 10/26/2012 10:08:00 10/26/2012 23:59:59 CLS Outpatient [id number] 09/30/2012 10:39:00 09/30/2012 23:59:59 CLS Outpatient [id number] 09/15/2012 11:49:00 09/15/2012 23:59:59 CLS Outpatient MIKA DAVE MD [id number] 09/04/2012 10:49:00 09/04/2012 23:59:59 CLS Outpatient [id number] 08/12/2012 13:26:00 08/12/2012 23:59:59 [place] [id number] 07/20/2012 11:03:00 07/20/2012 23:59:59 CLS Outpatient MIKA DAVE MD [id number] 04/26/2013 08:07:00 Document Registration [id number] 04/12/2013 13:45:00 Document Registration [id number] 03/09/2013 14:51:00 Document Registration [id number] 03/02/2013 10:46:00 Document Registration [id number] 01/04/2013 00:00:00 Document Registration [id number] 12/29/2012 15:10:00 Document Registration [id number] 03/06/2018 13:00:00 03/06/2018 23:59:59 CLS Outpatient MIKA DAVE MD [facility] [id number] 01/16/2018 23:34:00 01/17/2018 04:18:00 DIS Emergency CALEB MAYES MD [facility] ER SWOLLEN TONGUE, ALLERGIC RXN [id number] 01/08/2018 08:29:00 01/08/2018 23:59:59 CLS Outpatient JAMEY KELLOGG [facility] LAB I25.10 I10 E78.2 [id number] 10/01/2017 08:49:00 10/01/2017 23:59:59 CLS Outpatient JAMEY KELLOGG [facility] LAB E78.2 [id number] 06/11/2017 11:32:00 06/11/2017 18:52:00 DIS Outpatient DESMOND PEGUERO MD [facility] CATH ABN STRESS TEST [id number] 06/04/2017 07:42:00 06/04/2017 23:59:59 CLS Outpatient JAMEY KELLOGG [facility] CARD CAD,HTN,LVR [id number] 03/17/2017 10:42:00 03/17/2017 23:59:59 CLS Outpatient JAMEY KELLOGG [facility] CARD CAD,HTN,LVH, MR [id number] 07/26/2016 07:58:00 07/26/2016 23:59:59 CLS Outpatient JAMEY KELLOGG [facility] LAB CAD,GERD,HTN, HYPERLIPIDEMIA [id number] 04/26/2016 09:29:00 04/26/2016 23:59:59 CLS Outpatient DESMOND PEGUERO MD [facility] LAB CAD,HTN [id number] 03/07/2016 20:41:00 03/08/2016 06:30:00 DIS Outpatient MIKA DAVE MD [facility] SLEEP OBSERVED APNEAS, SNORING [id number] 01/08/2016 19:56:00 01/09/2016 06:55:00 DIS Outpatient MIKA DAVE MD [facility] SLEEP SNORING,EXCESSIVE DAYTIME SLEEPINESS [id number] 11/03/2015 08:10:00 11/03/2015 23:59:59 CLS Outpatient DESMOND PEGUERO MD [facility] RAD STENOSIS [id number] 10/27/2015 12:50:00 10/27/2015 18:20:00 DIS Outpatient DESMOND PEGUERO MD [facility] CATH ABNORMAL STRESS,CAD,HTN, DM [id number] 10/26/2015 00:22:00 10/27/2015 11:11:00 DIS Inpatient ALISSON ARGUETA MD [facility] CSD ACUTE ANGIOEDEMA OF TONGUE [id number] 10/25/2015 18:43:00 10/25/2015 18:56:00 DIS Emergency KATERINA FERGUSON MD [facility] ER SORE THROAT;DIFFICUTLY SWALLOWING [id number] 09/17/2015 17:13:00 09/17/2015 19:21:00 DIS Emergency KATERINA FERGUSON MD [facility] ER TONGUE SWELLING [id number] 08/21/2015 07:25:00 08/21/2015 23:59:59 CLS Outpatient DESMOND PEGUERO MD [facility] CARD CAD,CHF,HTN, HYPERLIPIDEMIA [id number] 08/16/2015 12:22:00 08/16/2015 23:59:59 CLS Outpatient DESMOND PEGUERO MD [facility] CARD CAD,CHF,HTN, HYPERLIPIDEMIA [id number] 08/07/2015 20:06:00 08/07/2015 21:50:00 DIS Emergency SONYA ANDERSON APRN [facility] ER ALLERGIC REACTION [id number] 07/06/2015 11:12:00 07/06/2015 13:00:00 DIS Outpatient JOSE ANGEL FRANCES MD [facility] REHAB L VOCAL CORD PARALYSIS AFTER CAROTID SURG; HOARSE [id number] 06/07/2015 10:07:00 06/07/2015 00:01:00 DIS [facility] CAR[facility]; HOARSE [id number] 05/21/2015 03:00:00 05/21/2015 13:55:00 DIS Inpatient MIKA DAVE MD [facility] ICU ANGIOEDEMA POTENTIAL AIRWAY OBSTRUCTION [id number] 05/08/2015 19:56:00 05/09/2015 14:13:00 DIS Inpatient MIKA DAVE MD [facility] CSD PARTIAL AIRWAY OBSTRUCTION 2" SOFT TISSUE MASS [id number] 04/05/2015 19:19:00 04/05/2015 20:36:00 DIS Emergency RON LÓPEZ DO [facility] ER SWOLLEN TONGUE [id number] 03/15/2015 21:58:00 03/16/2015 00:17:00 DIS Emergency DORIS HAQUE MD [facility] ER FACIAL SWELLING [id number] 02/24/2015 19:14:00 02/24/2015 20:42:00 DIS Emergency DORIS HAQUE MD [facility] ER CP [id number] 02/07/2015 12:30:00 02/07/2015 23:59:59 CLS Preadmit JAMEY KELLOGG [facility] CARD CAD,DIZZINESS , AORTIC VALVE CIRROSIS [id number] 01/11/2015 10:02:00 01/11/2015 23:59:59 CLS Outpatient DESMOND PEGUERO MD [facility] RAD DELROY [id number] 06/08/2014 08:12:00 06/08/2014 23:59:59 CLS Outpatient DESMOND PEGUERO MD [facility] CARD CAD CHF HYPERTENSION HYPERLIPIDEMIA [id number] 04/08/2014 10:17:00 04/08/2014 12:52:00 DIS Outpatient DESMOND PEGUERO MD [facility] CR PTCA STENTX2 [id number], STABLE ANGINA [id number] 03/06/2014 10:06:00 03/07/2014 10:42:00 DIS Inpatient DESMOND PEGUERO MD [facility] ICU CHEST PAIN [id number] 03/01/2014 23:25:00 03/02/2014 10:20:00 DIS Inpatient DESMOND PEGUERO MD [facility] CSD CHEST PAIN;ELEVATED TROPNIN [id number] 12/10/2015 18:10:00 Document Registration [id number] 11/23/2012 10:19:00 Document Registration [id number] 11/19/2012 07:17:00 Document Registration [id number] 04/21/2012 15:50:00 Document Registration [id number] 04/03/2012 13:15:00 Document Registration [id number] 03/02/2012 15:12:00 Document Registration [id number] 04/30/2011 20:55:00 Document Registration [id number] 01/19/2011 21:30:00 Document Registration [id number] 11/26/2010 17:52:00 Document Registration
--- NOTE | 2018-04-22 15:22 | ED Chest Pain ---
General Stated Complaint: CHEST PAIN Source: patient, spouse Exam Limitations: no limitations History of Present Illness Date Seen by Provider: Apr 22, 2018 Time Seen by Provider: 15:11 Initial Comments Patient presents to the ER by private conveyance by his daughter from [place], [place] after he started having some chest pain about 11:00 in the substernal region that a repeat originally radiated to his right jaw. It's gone down now after taking some Tums. He says he gets this from time to time and usually he' ll drink a Coke can do some belching or take some Tums to go away but this time is persisting. He does have a history of coronary disease followed by Dr. Peguero. He has high blood pressure and high cholesterol but no hypothyroidism. He does not smoke or drink. He does not have diabetes. He has no pulmonary lung disease either. He called over and talked to Dr. Peguero's clinic and they told him to come to the ER. His paperwork faxed over from the clinic represents an EF of 50% normal most recently. He had a cardiac catheterization June 2017 showing 40-50% stenosis in the distal left main nonobstructive and 43% stenosis within the stent in the proximal LAD nonobstructive and mild disease distally. He has 70% stenosis of the ostium of the second diagonal branch that is a fairly small artery and not amenable to intervention. Mild disease in the circumflex and right coronary arteries they're also nonobstructive. He has a history of left bundle branch block. He has not taken any nitroglycerin. He does take aspirin and Plavix usually at night. Allergies and Home Medications Allergies Coded Allergies: amoxicillin (Verified Allergy, Severe, TONGUE SWELLING, 04/22/18) Kvxoyof-Kih-Waf Reductase Inhibitor (Verified Allergy, Unknown, 03/01/14) lisinopril (Unverified Allergy, Unknown, 03/01/14) simvastatin (Verified Allergy, Unknown, 07/20/08) Home Medications Amlodipine Besylate 5 Mg Tablet, 5 MG PO HS, (Reported) Aspirin 81 Mg Tablet.dr, 81 MG PO HS, (Reported) Cetirizine HCl 10 Mg Tablet, 10 MG PO Q48H, (Reported) Clopidogrel Bisulfate 75 Mg Tablet, 75 MG PO HS, (Reported) Fenofibrate,Micronized 134 Mg Capsule, 134 MG PO HS, (Reported) Isosorbide Mononitrate 30 Mg Tab.er.24h, 30 MG PO HS, (Reported) Metoprolol Succinate 25 Mg Tab.er.24h, 25 MG PO HS, (Reported) [place] 3 Polyunsat Fatty Acids 1,000 Mg Cap, 2,000 MG PO HS, (Reported) Prednisone 20 Mg Tab, 40 MG PO DAILY Prescribed by: CALEB MAYES on 01/17/18 0414 Sennosides/Docusate Sodium 1 Each Tablet, 1 TAB PO HS, (Reported) Tamsulosin HCl 0.4 Mg Cap.er.24h, 0.4 MG PO HS, (Reported) Patient Home Medication List Home Medication List Reviewed: Yes Review of Systems Constitutional: No chills, No diaphoresis EENTM: No Blurred Vision, No Double Vision Respiratory: Denies Cough, Denies Shortness of Air Cardiovascular: See HPI, Chest Pain; Denies Edema, Denies Irregular Heart Rate , Denies Lightheadedness, Denies Syncope Gastrointestinal: Denies Abdomen Distended, Denies Abdominal Pain, Denies Constipated, Denies Diarrhea Genitourinary: Denies Burning, Denies Discharge Musculoskeletal: No back pain, No joint pain Past Gegtorq-Gequlo-Qwudzb Hx Patient Social History Alcohol Use: Denies Use Recreational Drug Use: No Smoking Status: Former Smoker Type Used: Cigarettes Former Smoker, Quit: Jun 11, 1992 Recent Hopitalizations: Yes (stent placement; angioplasty; appy) Immunizations Up To Date Tetanus Booster (TDap): Unknown Seasonal Allergies Seasonal Allergies: No Past Medical History Surgeries: Yes Angioplasty, Appendectomy, Cardiac, Coronary Stent, Vascular Surgery Respiratory: Yes Currently Using CPAP: No Currently Using BIPAP: No Cardiac: Yes Coronary Artery Disease, High Cholesterol, Hypertension Neurological: No Reproductive Disorders: No Gastrointestinal: Yes Gastroesophageal Reflux Musculoskeletal: Yes Arthritis Endocrine: No Cancer: No Psychosocial: No Integumentary: No Blood Disorders: No Adverse Reaction/Blood Tranf: No Family Medical History Cancer 19 FATHER Family history: Cardiovascular disease 19 MOTHER G8 SISTER Family history: Coronary thrombosis 19 MOTHER G8 SISTER Family history: Hypertension 19 MOTHER G8 SISTER Hypercholesterolemia 19 MOTHER G8 SISTER Heart Disease, Cancer, Hypertension Physical Exam Vital Signs Vital Signs - First Documented Capillary Refill : Height, Weight, BMI Height: 6'0.00" Weight: 275lbs. 8.0oz. [phone]; 37.8 BMI Method:Stated General Appearance: No Apparent Distress, WD/WN HEENT: Normal ENT Inspection, Pharynx Normal, Moist Mucous Membranes Neck: Full Range of Motion, Normal Inspection Respiratory: Chest Non Tender, Lungs Clear, Normal Breath Sounds, No Accessory Muscle Use, No Respiratory Distress Cardiovascular: Regular Rate, Rhythm, No Edema, Normal Peripheral Pulses Gastrointestinal: Normal Bowel Sounds, Non Tender, Soft Extremity: Normal Capillary Refill, Normal Inspection, No Pedal Edema Neurologic/Psychiatric: Alert, Oriented x3 Skin: Normal Color, Warm/Dry Progress/Results/Core Measures Results/Orders Lab Results Laboratory Tests Test 04/22/18 15:18 Range/Units White Blood Count 6.9 4.3-11.0 10^3/uL Red Blood Count 4.68 4.35-5.85 10^6/uL Hemoglobin 14.5 13.3-17.7 G/DL Hematocrit 42 40-54 % Mean Corpuscular Volume 89 80-99 FL Mean Corpuscular Hemoglobin 31 25-34 PG Mean Corpuscular Hemoglobin Concent 35 32-36 G/DL Red Cell Distribution Width 13.6 10.0-14.5 % Platelet Count 250 130-400 10^3/uL Mean Platelet Volume 11.0 H 7.4-10.4 FL Neutrophils (%) (Auto) 65 42-75 % Lymphocytes (%) (Auto) 27 12-44 % Monocytes (%) (Auto) 7 0-12 % Eosinophils (%) (Auto) 2 0-10 % Basophils (%) (Auto) 0 0-10 % Neutrophils # (Auto) 4.5 1.8-7.8 X 10^3 Lymphocytes # (Auto) 1.8 1.0-4.0 X 10^3 Monocytes # (Auto) 0.5 0.0-1.0 X 10^3 Eosinophils # (Auto) 0.1 0.0-0.3 10^3/uL Basophils # (Auto) 0.0 0.0-0.1 10^3/uL Prothrombin Time 13.8 12.2-14.7 SEC INR Comment 1.1 0.8-1.4 Activated Partial Thromboplast Time 31 24-35 SEC Sodium Level 138 135-145 MMOL/L Potassium Level 3.6 3.6-5.0 MMOL/L Chloride Level 100 98-107 MMOL/L Carbon Dioxide Level 27 21-32 MMOL/L Anion Gap 11 5-14 MMOL/L Blood Urea Nitrogen 12 7-18 MG/DL Creatinine 0.89 0.60-1.30 MG/DL Estimat Glomerular Filtration Rate > 60 BUN/Creatinine Ratio 13 Glucose Level 128 H 70-105 MG/DL Calcium Level 10.2 H 8.5-10.1 MG/DL Corrected Calcium 9.9 8.5-10.1 MG/DL Magnesium Level 2.4 1.8-2.4 MG/DL Total Bilirubin 0.6 0.1-1.0 MG/DL Aspartate Amino Transf (AST/SGOT) 21 5-34 U/L Alanine Aminotransferase (ALT/SGPT) 21 0-55 U/L Alkaline Phosphatase 70 40-136 U/L Myoglobin 39.8 10.0-92.0 NG/ML Troponin I < 0.30 <0.30 NG/ML Total Protein 8.1 6.4-8.2 GM/DL Albumin 4.4 3.2-4.5 GM/DL Lipase 70 8-78 U/L My Orders Orders - JASWINDER,REVA J Ekg Tracing (04/22/18 15:10) Cbc With Automated Diff (04/22/18 15:17) Magnesium (04/22/18 15:17) Chest 1 View, Ap/Pa Only (04/22/18 15:17) Cardiac Profile 1 (04/22/18 15:17) Comprehensive Metabolic Panel (04/22/18 15:17) Myoglobin Serum (04/22/18 15:17) Protime With Inr (04/22/18 15:17) Partial Thromboplastin Time (04/22/18 15:17) O2 (04/22/18 15:17) Monitor-Rhythm Ecg Trace Only (04/22/18 15:17) Lipid Panel (04/23/18 06:00) Aspirin Chewable Tablet (Baby Aspirin Ch (04/22/18 15:30) Nitroglycerin 0.4 Mg Btl 25's (Nitrostat (04/22/18 15:30) Saline Lock/Iv-Start (04/22/18 15:17) Lipase (04/22/18 15:17) Lidocaine 2% Viscous 15 Ml (Xylocaine Vi (04/22/18 15:45) Antacid Suspension (Mylanta Suspension (04/22/18 15:45) Pantoprazole Injection (Protonix Injecti (04/22/18 15:45) Medications Given in ED Current Medications Medications Dose Ordered Sig/Chano Route Start Time Stop Time Status Last Admin Dose Admin Al Hydrox/Mg Hydrox/Simethicone 30 ml ONCE ONCE PO 04/22/18 15:45 04/22/18 15:46 DC 04/22/18 15:51 30 ML Aspirin 324 mg ONCE ONCE PO 04/22/18 15:30 04/22/18 15:31 DC 04/22/18 15:22 324 MG Lidocaine HCl 15 ml ONCE ONCE PO 04/22/18 15:45 04/22/18 15:46 DC 04/22/18 15:51 15 ML Nitroglycerin 0.4 mg UD PRN SL 04/22/18 15:30 04/22/18 15:24 0.4 MG Pantoprazole 40 mg ONCE ONCE IV 04/22/18 15:45 04/22/18 15:46 DC 04/22/18 15:50 40 MG Vital Signs/I&O 04/22/18 04/22/18 04/22/18 15:04 15:04 15:04 Temp 98.3 Pulse 68 Resp 14 B/P (MAP) 153/81 (105) Pulse Ox 98 99 O2 Delivery Nasal Cannula Nasal Cannula O2 Flow Rate 2.00 2.00 2.0 Progress Progress Note : Time: 16:10 Progress Note Gave him a single dose nitroglycerin which did nothing for his chest pain. Gave him a GI cocktail and he states he feels significant improvement however. We will consult with cardiology. Initial ECG Impression Date: Apr 22, 2018 Initial ECG Impression Time: 15:12 Initial ECG Rate: 68 Initial ECG Rhythm: Normal Sinus Initial ECG Intervals: QRS (160) Initial ECG Impression: Nonspecific Changes (left bundle branch block) Initial ECG Comparisson: Unchanged Comment Patient has previous left bundle branch block and continues to have left bundle- branch block without credible changes. Diagnostic Imaging Diagonstic Imaging: Xray Plain Films/CT/US/NM/MRI: chest (1v) Comments VIA [facility]. [place], [place] NAME: [facility]LAYTON [facility] REC#: [id number] PT STATUS: REG ER : 1955 PHYSICIAN: REVA SAN MD ADMIT DATE: 04/22/18/ER Draft Date of Exam:04/22/18 CHEST 1 VIEW, AP/PA ONLY INDICATION: Chest pain. TIME OF EXAM: 3:47 PM COMPARISON: Correlation is made with prior study from 06/11/2017. FINDINGS: The heart size is normal. The pulmonary vascularity is unremarkable. The lungs are clear. No infiltrate, effusion or pneumothorax is detected. IMPRESSION: No acute cardiopulmonary process is detected. Dictated on workstation # [id number] Dict: 04/22/18 1555 Trans: 04/22/18 1558 [id number] Interpreted by: SIMIN HOLT MD Electronically signed by: Reviewed: Reviewed by Me Consults : Consulting Physician: DESMOND PEGUERO MD Consults Notes Dr. Peguero; he is aware the patient and the patient was having similar discomfort yesterday so he wanted a troponin level and since it has not gone up he and it did improve with the GI cocktail he is comfortable allowing the patient to go home and follow-up in the clinic in the next 1-2 days. Departure Impression Primary Impression: Chest pain Qualified Codes: R07.9 - Chest pain, unspecified Additional Impression: GERD (gastroesophageal reflux disease) Qualified Codes: K21.9 - Gastro-esophageal reflux disease without esophagitis Disposition: 01 HOME, SELF-CARE Condition: Improved Departure-Patient Inst. Decision time for Depature: 16:13 Referrals: MIKA DAVE MD (PCP/Family) Primary Care Physician DESMOND PEGUERO MD Patient Instructions: Chest Pain That Is Not Caused by the Heart (DC) Add. Discharge Instructions: You can use omeprazole 40 mg once a day for the next couple weeks to see if this improves your symptoms. Please follow-up with Dr. Peguero in the next 1-2 days by calling his clinic for an appointment. If you have new or worsening symptoms please return to the ER. Copy Copies To 1: GILDARDO BAZZI DO; DESMOND PEGUERO MD, TITUS J Apr 22, 2018 15:22
[2018-04-22 15:24] LABS: BASOPHILS % (AUTO) 0 % (0-10); EOSINOPHILS # (AUTO) 0.1 10^3/uL (0.0-0.3); EOSINOPHILS % (AUTO) 2 % (0-10); HEMATOCRIT 42 % (40-54); HEMOGLOBIN 14.5 G/DL (13.3-17.7); LYMPHOCYTES # (AUTO) 1.8 X 10^3 (1.0-4.0); LYMPHOCYTES % (AUTO) 27 % (12-44); MEAN CORPUSCULAR HEMOGLOBIN 31 PG (25-34); MEAN CORPUSCULAR HGB CONC 35 G/DL (32-36); MEAN CORPUSCULAR VOLUME 89 FL (80-99); MONOCYTES # (AUTO) 0.5 X 10^3 (0.0-1.0); MONOCYTES % (AUTO) 7 % (0-12); NEUTROPHILS # (AUTO) 4.5 X 10^3 (1.8-7.8); NEUTROPHILS % (AUTO) 65 % (42-75); PLATELET COUNT 250 10^3/uL (130-400); RED BLOOD COUNT 4.68 10^6/uL (4.35-5.85); RED CELL DISTRIBUTION WIDTH 13.6 % (10.0-14.5); WHITE BLOOD COUNT 6.9 10^3/uL (4.3-11.0)
[2018-04-22] MEDS ORDERED: ASPIRIN 81 MG CHEW (CHILDREN'S ASA) PO ONE (15:30)
[2018-04-22] MEDS ORDERED: NITROGLYCERIN 0.4 MG SL TABS BTL 25'S SL PRN (15:30)
[2018-04-22 15:35] LABS: INR 1.1 (0.8-1.4); PROTHROMBIN TIME PATIENT 13.8 SEC (12.2-14.7)
[2018-04-22 15:41] LABS: ALANINE AMINOTRANSFERASE 21 U/L (0-55); ALBUMIN 4.4 GM/DL (3.2-4.5); ALKALINE PHOSPHATASE 70 U/L (40-136); BILIRUBIN,TOTAL 0.6 MG/DL (0.1-1.0); BUN/CREATININE RATIO 13; CALCIUM 10.2 MG/DL (8.5-10.1); CARBON DIOXIDE 27 MMOL/L (21-32); CHLORIDE 100 MMOL/L (98-107); CREATININE SERUM 0.89 MG/DL (0.60-1.30); GFR ESTIMATED > 60; GLUCOSE 128 MG/DL (70-105); LIPASE 70 U/L (8-78); MAGNESIUM 2.4 MG/DL (1.8-2.4); POTASSIUM 3.6 MMOL/L (3.6-5.0); SODIUM 138 MMOL/L (135-145); TOTAL PROTEIN 8.1 GM/DL (6.4-8.2)
[2018-04-22] MEDS ORDERED: LIDOCAINE 2% VISCOUS 15 ML UDC PO ONE (15:45)
[2018-04-22] MEDS ORDERED: ANTACID SUSP 30 ML UDC (MYLANTA) PO ONE (15:45)
[2018-04-22] MEDS ORDERED: PANTOPRAZOLE 40 MG/10 ML (PROTONIX) VIAL IV ONE (15:45)
[2018-04-22 15:48] LABS: MYOGLOBIN SERUM 39.8 NG/ML (10.0-92.0)
--- NOTE | 2018-04-22 15:59 | Diagnostic Imaging Report ---
INDICATION: Chest pain. TIME OF EXAM: 3:47 PM COMPARISON: Correlation is made with prior study from 06/11/2017. FINDINGS: The heart size is normal. The pulmonary vascularity is unremarkable. The lungs are clear. No infiltrate, effusion or pneumothorax is detected. IMPRESSION: No acute cardiopulmonary process is detected. Dictated by: Dictated on workstation # [id number]
[2018-04-22 16:31] VITALS: BP 147/72
== END 2018-04-22 16:32 | disposition home or self-care (01) ==
LOC: EDUNIT# 15:03 → ER 15:04
DX: K21.9 Gastro-esophageal reflux disease without esophagitis (principal); R07.2 Precordial pain; I25.10 Atherosclerotic heart disease of native coronary artery without angina pectoris; E78.00 Pure hypercholesterolemia, unspecified; M19.90 Unspecified osteoarthritis, unspecified site; Z87.891 Personal history of nicotine dependence; Z90.49 Acquired absence of other specified parts of digestive tract; Z95.5 Presence of coronary angioplasty implant and graft; Z79.82 Long term (current) use of aspirin; Z88.1 Allergy status to other antibiotic agents; Z88.8 Allergy status to other drugs, medicaments and biological substances
CPT/HCPCS: 36415; 71045; 80053; 83690; 83735; 83874; 84484; 85025; 85610; 85730; 93005; 93041

== ENCOUNTER → 2018-07-10 | Outpatient (CLI) | payer MEDICARE, OTHER ==
[2018-07-10 09:38] LABS: ALANINE AMINOTRANSFERASE 19 U/L (0-55); ALBUMIN 4.3 GM/DL (3.2-4.5); ALKALINE PHOSPHATASE 67 U/L (40-136); BILIRUBIN,TOTAL 0.6 MG/DL (0.1-1.0); BUN/CREATININE RATIO 18; CALCIUM 10.4 MG/DL (8.5-10.1); CARBON DIOXIDE 24 MMOL/L (21-32); CHLORIDE 103 MMOL/L (98-107); CHOLESTEROL 124 MG/DL (< 200); CREATININE SERUM 0.85 MG/DL (0.60-1.30); GFR ESTIMATED > 60; GLUCOSE 111 MG/DL (70-105); HDL CHOLESTEROL 51 MG/DL (40-60); POTASSIUM 3.8 MMOL/L (3.6-5.0); SODIUM 140 MMOL/L (135-145); TOTAL PROTEIN 8.1 GM/DL (6.4-8.2); TRIGLYCERIDES 94 MG/DL (<150); VLDL CHOLESTEROL 19 MG/DL (5-40)
== END ==
LOC: LAB 09:03
PROVIDERS: ATTEND Physician Assistant
DX: E78.2 Mixed hyperlipidemia (principal)
CPT/HCPCS: 36415; 80053; 80061

== ENCOUNTER → 2018-11-05 | Outpatient (CLI) | payer MEDICARE, OTHER | LOC: CARD 08:20 | PROVIDERS: ATTEND Internal Medicine Cardiovascular Disease | DX: I25.10 Atherosclerotic heart disease of native coronary artery without angina pectoris (principal); I65.29 Occlusion and stenosis of unspecified carotid artery; I42.0 Dilated cardiomyopathy; I10 Essential (primary) hypertension; I34.0 Nonrheumatic mitral (valve) insufficiency | CPT/HCPCS: 93306 ==

== ENCOUNTER → 2019-06-01 | Outpatient (CLI) | payer MEDICARE ==
[2019-06-01 07:28] LABS: CHOLESTEROL 125 MG/DL (< 200); HDL CHOLESTEROL 45 MG/DL (40-60); TRIGLYCERIDES 86 MG/DL (<150); VLDL CHOLESTEROL 17 MG/DL (5-40)
--- NOTE | 2019-06-01 10:46 | Diagnostic Imaging Report ---
PROCEDURE: CT lumbar spine without contrast. TECHNIQUE: Multiple contiguous axial images were obtained through the lumbar spine without the use of intravenous contrast. Sagittal and coronal reformations were then performed. Auto Exposure Controls were utilized during the CT exam to meet ALARA standards for radiation dose reduction. INDICATION: Three weeks history of low back pain radiating down the right leg. COMPARISON: Study correlated with abdominal and pelvic CT 04/21/2012. FINDINGS: Lumbar statures are normal. There is grade I retrolisthesis degenerative L5 on S1 of about 3-4 mm. The pedicles and pars were intact. No acute or chronic lumbar fracture found. No paravertebral mass, hemorrhage, or fluid collection. There is aortic atherosclerotic vascular calcifications without visualized aneurysm. T12-L1: Mild anterior osteophyte disc material results in no stenosis. L1-L2: Anterior greater than posterior osteophyte disc material present. There is no canal, foraminal or recess stenosis. L2-L3: There is hypertrophic facet arthrosis. There is mild thickening of the ligamenta flava. Disc bulge and endplate osteophytes are present. The findings result in a mild degree of left foraminal stenosis and mild central canal narrowing. L3-L4: Mild osteophyte disc material at this level results in no substantial canal, foraminal or recess stenosis. L4-L5: Ligamentous thickening, facet arthrosis, disc bulge and endplate osteophytes result in a mild degree of canal stenosis. There is moderate right and mild left neural foraminal narrowing. The lateral recess is patent. L5-S1: There is advanced degenerative disc space narrowing, vacuum gas phenomena, grade I degenerative listhesis, disc bulge and endplate osteophytes. The findings result in a moderate to severe degree of right foraminal narrowing with mild left foraminal stenosis. There is no substantial impingement upon the thecal sac or lateral recesses. IMPRESSION: 1. 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 Findings are greatest at the L5-S1 level where there is mild grade I degenerative retrolisthesis. 2. No fracture or acute bony abnormality. Dictated by: Dictated on workstation # [id number]
[2019-06-02 14:02] LABS: ALANINE AMINOTRANSFERASE 20 U/L (0-55); ALBUMIN 4.2 GM/DL (3.2-4.5); ALKALINE PHOSPHATASE 59 U/L (40-136); BILIRUBIN,TOTAL 0.4 MG/DL (0.1-1.0); BUN/CREATININE RATIO 14; CALCIUM 9.6 MG/DL (8.5-10.1); CARBON DIOXIDE 23 MMOL/L (21-32); CHLORIDE 105 MMOL/L (98-107); GFR ESTIMATED > 60; GLUCOSE 114 MG/DL (70-105); POTASSIUM 3.7 MMOL/L (3.6-5.0); SODIUM 141 MMOL/L (135-145); TOTAL PROTEIN 7.7 GM/DL (6.4-8.2)
== END ==
LOC: RAD 06:51
PROVIDERS: ATTEND Internal Medicine Cardiovascular Disease
DX: M43.17 Spondylolisthesis, lumbosacral region (principal); M51.27 Other intervertebral disc displacement, lumbosacral region; M51.37 Other intervertebral disc degeneration, lumbosacral region; M25.78 Osteophyte, vertebrae; M48.07 Spinal stenosis, lumbosacral region; M47.816 Spondylosis without myelopathy or radiculopathy, lumbar region; I70.0 Atherosclerosis of aorta; I21.4 Non-ST elevation (NSTEMI) myocardial infarction; I11.0 Hypertensive heart disease with heart failure; I50.9 Heart failure, unspecified
CPT/HCPCS: 36415; 72131; 80053; 80061

== ENCOUNTER → 2019-06-29 | Outpatient (CLI) | payer MEDICARE ==
[~2019-06-29] MED LIST changes: +CATHETER FLUSH 10 ML SYR IV PRN; +HOLD METFORMIN - RECEIVED CONTRAST 20 ML VIAL IV SCH; +IOHEXOL 350 MG/ML 100 ML (OMNIPAQUE 350) VIAL IV ONE; +NS 100 ML (IVPB) BAG IV ONE
[2019-06-29 13:33] LABS: ALBUMIN 4.5 GM/DL (3.2-4.5); BUN/CREATININE RATIO 18; CALCIUM 10.3 MG/DL (8.5-10.1); CARBON DIOXIDE 21 MMOL/L (21-32); CHLORIDE 107 MMOL/L (98-107); CREATININE SERUM 0.82 MG/DL (0.60-1.30); GFR ESTIMATED > 60; GLUCOSE 95 MG/DL (70-105); PHOSPHORUS 2.6 MG/DL (2.3-4.7); POTASSIUM 4.2 MMOL/L (3.6-5.0); SODIUM 141 MMOL/L (135-145)
--- NOTE | 2019-06-29 14:49 | Diagnostic Imaging Report ---
PROCEDURE: CT angiography of the head and CT angiography of the neck with and without contrast. TECHNIQUE: Contiguous noncontrast images were obtained from the skull base through the vertex. After intravenous contrast administration, helical CT angiography of the neck was performed. Source data was reformatted into 3D MIP projections. Delayed post contrast acquisition was also obtained. Auto Exposure Controls were utilized during the CT exam to meet ALARA standards for radiation dose reduction. INDICATION: Follow-up right carotid stenosis. Patient has had left carotid endarterectomy. COMPARISON: Correlation is made with prior CT angiogram of the neck performed 11/03/2015. FINDINGS: Precontrast imaging through the brain demonstrates the ventricles and sulci to be within normal limits. No sulcal effacement or midline shift is detected. No acute intra-axial or extra-axial hemorrhage is detected. Delayed postcontrast imaging through the brain was also performed. No abnormal enhancement is identified. Both common carotid arteries appear to be widely patent. Left carotid bifurcation is widely patent. Postsurgical changes of left carotid endarterectomy are again noted. There continues to be significant calcified plaque at the right carotid bifurcation and proximal right internal carotid artery. There continues to be approximately 60-70% diameter stenosis of the proximal right internal carotid artery. Remainder of the right internal carotid artery appears to be widely patent. There is some calcified plaque identified in both carotid siphons. Bilateral anterior and middle cerebral arteries are patent. Posterior cerebral arteries are patent. The basilar is widely patent. Left vertebral artery is dominant. IMPRESSION: 1. Moderate plaque origin of right internal carotid artery with 60-70% diameter stenosis. Left carotid system is unremarkable. Dictated by: Dictated on workstation # [id number]
== END ==
LOC: RAD 12:51
PROVIDERS: ATTEND Nurse Practitioner
DX: I65.23 Occlusion and stenosis of bilateral carotid arteries (principal)
CPT/HCPCS: 36415; 70496; 70498; 80069

== ENCOUNTER → 2020-02-08 | Outpatient (CLI) | payer MEDICARE ==
[~2020-02-08] MED LIST changes: -CATHETER FLUSH 10 ML SYR IV PRN; -CETI10TA20 PO; +CETI10TA21 PO; -DOXY100T19 PO; +DOXY100T31 PO; -HOLD METFORMIN - RECEIVED CONTRAST 20 ML VIAL IV SCH; -IOHEXOL 350 MG/ML 100 ML (OMNIPAQUE 350) VIAL IV ONE; -METO-387 PO; -NS 100 ML (IVPB) BAG IV ONE
--- NOTE | 2020-02-08 13:15 | Diagnostic Imaging Report ---
PROCEDURE: US carotid duplex, bilateral. TECHNIQUE: Multiple real-time grayscale images were obtained over the carotid arteries in various projections, bilaterally. Additional spectral analysis and color Doppler duplex images were also obtained. INDICATION: Carotid artery disease. COMPARISON: There are no prior carotid ultrasound examinations available for comparison. FINDINGS: The CT angio exam of the neck and head performed on 06/29/2019 noted moderate plaque involving the origin of the internal carotid artery on the right with a 60-70% stenosis. There is no sign of a hemodynamically significant stenosis of the left carotid system. On this exam, there is fairly heavy hard and soft plaque formation involving the carotid bifurcation on the right and moderate hard and soft plaque formation involving the carotid bifurcation on the left. The IC/CC ratio on the right is elevated and I suspect that there is a 70-80% stenosis of the origin of the internal carotid artery on the right. There is no sign of a hemodynamically significant stenosis of the left carotid system. The right vertebral artery was identified and there was antegrade flow. The left vertebral artery could not be clearly identified. On the prior CTA head and neck exam, the left vertebral artery did appear to be dominant. IMPRESSION: 1. There is atherosclerotic disease involving the right carotid system and there does appear to be 70-80% stenosis of the origin of the internal carotid artery on the right. If further study is desired, then repeat CT head and neck exam would be recommended. 2. There is no evidence for hemodynamically significant stenosis of the left carotid system. 3. There is antegrade flow in the right vertebral artery but the left vertebral artery could not be identified. Parameters based on the consensus panel Bradshaw-Scale and Doppler ultrasound criteria published July 2003, Radiology, Volume 229. DOPPLER (peak systolic velocity M/S Right Left CCA .88 .89 ICA Proximal 2.93 .71 ICA Mid .87 .65 ICA Distal .73 .65 RATIO 3.34 0.8 ECA 1.42 1.14 VERT .32 NOT SEEN Dictated by: Dictated on workstation # [id number]
== END ==
LOC: RAD 09:41
PROVIDERS: ATTEND Nurse Practitioner
DX: I65.23 Occlusion and stenosis of bilateral carotid arteries (principal)
CPT/HCPCS: 93880

== ENCOUNTER → 2020-02-08 | Outpatient (CLI) | payer MEDICARE ==
[2020-02-08 10:22] LABS: ALBUMIN 4.2 GM/DL (3.2-4.5); CHLORIDE 103 MMOL/L (98-107); POTASSIUM 3.8 MMOL/L (3.6-5.0); SODIUM 138 MMOL/L (135-145)
[2020-02-08 10:23] LABS: CALCIUM 9.7 MG/DL (8.5-10.1)
[2020-02-08 10:24] LABS: TRIGLYCERIDES 73 MG/DL (<150); VLDL CHOLESTEROL 15 MG/DL (5-40)
[2020-02-08 10:25] LABS: GLUCOSE 124 MG/DL (70-105); TOTAL PROTEIN 7.9 GM/DL (6.4-8.2)
[2020-02-08 10:26] LABS: BILIRUBIN,TOTAL 0.5 MG/DL (0.1-1.0); CARBON DIOXIDE 26 MMOL/L (21-32)
[2020-02-08 10:28] LABS: ALKALINE PHOSPHATASE 68 U/L (40-136); CREATININE SERUM 0.84 MG/DL (0.60-1.30); GFR ESTIMATED > 60
[2020-02-08 10:29] LABS: CHOLESTEROL 117 MG/DL (< 200)
[2020-02-08 10:30] LABS: BUN/CREATININE RATIO 12; HDL CHOLESTEROL 45 MG/DL (40-60)
[2020-02-08 10:31] LABS: ALANINE AMINOTRANSFERASE 20 U/L (0-55)
== END ==
LOC: LAB 09:54
PROVIDERS: ATTEND Physician Assistant
DX: I25.10 Atherosclerotic heart disease of native coronary artery without angina pectoris (principal); I10 Essential (primary) hypertension; E78.2 Mixed hyperlipidemia
CPT/HCPCS: 36415; 80053; 80061

== ENCOUNTER → 2020-02-17 | Outpatient (CLI) | payer MEDICARE ==
[~2020-02-17] MED LIST changes: +CATHETER FLUSH 10 ML SYR IV PRN; +HOLD METFORMIN - RECEIVED CONTRAST 20 ML VIAL IV SCH; +IOHEXOL 350 MG/ML 100 ML (OMNIPAQUE 350) VIAL IV ONE; +NS 100 ML (IVPB) BAG IV ONE
--- NOTE | 2020-02-17 16:05 | Diagnostic Imaging Report ---
INDICATION: Carotid stenosis. TECHNIQUE: Contiguous noncontrast images were obtained from the skull base through the vertex. After intravenous contrast administration, helical CT angiography of the neck was performed. Source data was reformatted into 3D MIP projections. Delayed post contrast acquisition was also obtained. Auto Exposure Controls were utilized during the CT exam to meet ALARA standards for radiation dose reduction. A precontrast CT was also performed of the head. FINDINGS: Precontrast head CT demonstrates no extra-axial fluid collections. No intracranial hemorrhage. No mass or mass effect. No midline shift. The ventricles are normal in size and position. There are no focal parenchymal abnormalities in the brain. Calvarial windows appear unremarkable. CTA NECK FINDINGS: The thoracic aortic arch is patent and normal in caliber. There is moderate atherosclerotic plaquing of the aortic arch. The great vessel origins are patent with minor plaquing. The common carotid arteries are patent with minor plaquing. The left carotid bifurcation is widely patent. The patient has had previous left carotid surgery. The left internal and external carotids are patent and without stenosis throughout their course. The right carotid bifurcation shows evidence of plaquing. There is focal 70 to 80% stenosis at the right internal carotid origin. The distal portion of the right internal carotid is normal in caliber. The vertebral arteries on both sides are patent. There is mild plaquing in the left vertebral artery origin with a more prominent degree of plaquing in the right vertebral artery origin. There is asymmetry in the supraglottic region on the left side with effacement of the left pyriform sinus. This is less prominent than was seen in 2015 but a little more prominent than seen on 06/29/2019. The possibility of recurrent disease in this area cannot be excluded. Recommend ENT evaluation. CTA HEAD FINDINGS: The distal left vertebral artery is normal in caliber. The distal right vertebral artery is diffuse small, this may be congenital and has not changed compared to previous studies. The distal internal carotid arteries show some concentric plaquing in the carotid siphons, without high-grade stenosis. The middle cerebral arteries and their branches as well as the anterior cerebral arteries are patent. The basilar artery and posterior cerebral arteries are patent. There is no intracranial stenosis or aneurysmal disease. The delayed views show patency of the dural venous sinuses. IMPRESSION: 1. CTA neck demonstrates significant stenosis of the right internal carotid origin with about 70 to 80% diameter stenosis. There is mild plaquing in the left common carotid artery. There are postop changes of the left carotid bifurcation with no evidence of stenosis. Both vertebrals are patent with the left being slightly dominant. There is mild plaquing in the left vertebral artery origin and some plaquing in the right vertebral artery origin. 2. There is some asymmetry in the supraglottic region on the left side with effacement of the left pyriform sinus. This is less prominent than was seen in 2015 but appears more prominent than was seen on 06/29/2019. Possibility of recurrent mass there cannot be excluded. Recommend ENT evaluation. 3. CTA head demonstrates no intracranial stenosis or occlusion or aneurysmal disease. There is moderate concentric plaquing in the carotid siphons. Dictated by: Dictated on workstation # [id number]
== END ==
LOC: RAD 14:18
PROVIDERS: ATTEND Nurse Practitioner
DX: I65.23 Occlusion and stenosis of bilateral carotid arteries (principal); Z98.890 Other specified postprocedural states
CPT/HCPCS: 70496; 70498

== ENCOUNTER → 2020-08-23 | Outpatient (CLI) | payer MEDICARE ==
[~2020-08-23] MED LIST changes: +ASPI-1238 PO; -ASPI-983 PO; -CATHETER FLUSH 10 ML SYR IV PRN; -CETI10TA21 PO; +CETI10TA49 PO; -HOLD METFORMIN - RECEIVED CONTRAST 20 ML VIAL IV SCH; -IOHEXOL 350 MG/ML 100 ML (OMNIPAQUE 350) VIAL IV ONE; -NS 100 ML (IVPB) BAG IV ONE
--- NOTE | 2020-08-23 09:57 | Diagnostic Imaging Report ---
PROCEDURE: US carotid duplex, bilateral. TECHNIQUE: Multiple real-time grayscale images were obtained over the carotid arteries in various projections, bilaterally. Additional spectral analysis and color Doppler duplex images were also obtained. INDICATION: Carotid artery disease The prior exam of 02/08/2020 noted fairly heavy hard and soft plaque formation involving the carotid bifurcation on the right and moderate hard and soft plaque formation of the carotid bifurcation on the left. There also appear to be a 70-80% stenosis of the origin of the internal carotid artery. On this exam those findings are again evident. The IC/CC ratio on the right however is somewhat less than on the prior exam is now estimated to be 2.9 as opposed to 3.3 previous study. I suspect the stenosis is still in the 70% range. There is no hemodynamically significant stenosis of the left carotid system. Both vertebral arteries were identified and there was antegrade flow bilaterally. IMPRESSION: 1. There is persistent atherosclerotic disease involving both carotid systems, particularly on the right. While the IC/CC ratio on the right has decreased slightly since the prior exam, the stenosis of the right internal carotid artery is still probably in the 70% range. 2. There is no evidence for hemodynamically significant stenosis of the left carotid system. Parameters based on the consensus panel Bradshaw-Scale and Doppler ultrasound criteria published July 2003, Radiology, Volume 229. DOPPLER (peak systolic velocity M/S Right Left CCA 72 66 ICA Proximal 211 65 ICA Mid 67 60 ICA Distal 69 52 RATIO 2.9 1.0 ECA 116 112 VERT 57 51 Dictated by: Dictated on workstation # [id number]
== END ==
LOC: RAD 09:00
PROVIDERS: ATTEND Nurse Practitioner
DX: I65.23 Occlusion and stenosis of bilateral carotid arteries (principal)
CPT/HCPCS: 93880

== ENCOUNTER → 2021-01-08 | Outpatient (CLI) | payer MEDICARE, OTHER ==
[~2021-01-08] MED LIST changes: -ISOS30TA3 PO; +ISOS30TA82 PO
== END ==
LOC: CARD 13:30
PROVIDERS: ATTEND Internal Medicine Cardiovascular Disease
DX: I51.7 Cardiomegaly (principal); I35.8 Other nonrheumatic aortic valve disorders
CPT/HCPCS: 93306

== ENCOUNTER → 2021-01-31 | Outpatient (CLI) | payer MEDICARE ==
[2021-01-31 09:12] LABS: ALANINE AMINOTRANSFERASE 14 U/L (0-55); ALKALINE PHOSPHATASE 60 U/L (40-136); BILIRUBIN,TOTAL 0.6 MG/DL (0.1-1.0); BUN/CREATININE RATIO 12; CALCIUM 10.3 MG/DL (8.5-10.1); CARBON DIOXIDE 28 MMOL/L (21-32); CHLORIDE 101 MMOL/L (98-107); CHOLESTEROL 167 MG/DL (< 200); CREATININE SERUM 0.81 MG/DL (0.60-1.30); GFR ESTIMATED > 60; GLUCOSE 119 MG/DL (70-105); HDL CHOLESTEROL 39 MG/DL (40-60); POTASSIUM 3.8 MMOL/L (3.6-5.0); SODIUM 138 MMOL/L (135-145); TOTAL PROTEIN 7.5 GM/DL (6.4-8.2); TRIGLYCERIDES 80 MG/DL (<150); VLDL CHOLESTEROL 16 MG/DL (5-40)
== END ==
LOC: LAB 08:17
PROVIDERS: ATTEND Internal Medicine Cardiovascular Disease
DX: E78.2 Mixed hyperlipidemia (principal)
CPT/HCPCS: 36415; 80053; 80061

== ENCOUNTER → 2021-08-10 | Outpatient (CLI) | payer MEDICARE ==
[2021-08-10 09:38] LABS: ALBUMIN 4.1 GM/DL (3.2-4.5); BILIRUBIN,TOTAL 0.6 MG/DL (0.1-1.0); CALCIUM 9.7 MG/DL (8.5-10.1); CREATININE SERUM 0.8 MG/DL (0.60-1.30); POTASSIUM 3.5 MMOL/L (3.6-5.0); TOTAL PROTEIN 7.3 GM/DL (6.4-8.2)
== END ==
LOC: LAB 08:47
PROVIDERS: ATTEND Internal Medicine Cardiovascular Disease
DX: E78.2 Mixed hyperlipidemia (principal)
CPT/HCPCS: 36415; 80053; 80061

== ENCOUNTER → 2022-03-06 | Outpatient (CLI) | payer MEDICARE ==
[~2022-03-06] MED LIST changes: -FENO134C PO; +FENO134C21 PO
[2022-03-06 10:16] LABS: ALBUMIN 4.4 GM/DL (3.2-4.5); POTASSIUM 3.6 MMOL/L (3.6-5.0)
[2022-03-06 10:17] LABS: CALCIUM 10.1 MG/DL (8.5-10.1)
[2022-03-06 10:19] LABS: TOTAL PROTEIN 8.5 GM/DL (6.4-8.2)
[2022-03-06 10:21] LABS: BILIRUBIN,TOTAL 0.9 MG/DL (0.1-1.0)
[2022-03-06 10:22] LABS: CREATININE SERUM 0.79 MG/DL (0.60-1.30)
== END ==
LOC: LAB 09:26
PROVIDERS: ATTEND Internal Medicine Cardiovascular Disease
DX: I10 Essential (primary) hypertension (principal); E78.2 Mixed hyperlipidemia; I65.29 Occlusion and stenosis of unspecified carotid artery; I25.10 Atherosclerotic heart disease of native coronary artery without angina pectoris
CPT/HCPCS: 36415; 80053; 80061

== ENCOUNTER 2022-12-04 15:26 | Emergency (ER) | payer MEDICARE ==
[~2022-12-04] VITALS: Ht 182.8 cm; Wt 120.0 kg
--- NOTE | 2022-12-04 15:34 | ED Neurological Problem ---
General Stated Complaint: LT LEG NUMBNESS Source: patient Exam Limitations: no limitations History of Present Illness Date Seen by Provider: Dec 04, 2022 Time Seen by Provider: 15:34 Initial Comments Patient is a 67-year-old with a history of coronary artery disease peripheral vascular disease who presents to the emergency department with a chief complaint of numb left leg. Patient has had previous angioplasty and stent to the left leg, states that he woke up this morning some left posterior hip pain and a little low back discomfort and when he got up to walk after getting out of bed he felt like he could not feel his leg below the knee and stumbled and fell. He did not hit his head or have loss of consciousness. It has persisted. He went to his chiropractor today and states that he felt a little bit better for about a half an hour to an hour and then symptoms recurred. He states that below the knee his leg is "". No headache, vision changes, speech difficulties. He denies any calf pain or claudication symptoms. His angioplasty and stent to the left leg were done in early October of this year. He is on Plavix and baby aspirin. He denies any recent injuries, no prior back surgeries. He is not incontinent of urine or stool. Timing/Duration: other (9h) Severity: severe Associated Symptoms: numbness in legs/feet (Left leg), tingling in legs/feet (Has had pre-existing tingling in both feet, told by his PCP this was neuropathy), trouble walking, weakness (Left lower) Allergies and Home Medications Allergies Coded Allergies: amoxicillin (Verified Allergy, Severe, TONGUE SWELLING, 04/22/18) Vvtzdsz-Lem-Vjr Reductase Inhibitor (Verified Allergy, Unknown, 03/01/14) lisinopril (Unverified Allergy, Unknown, 03/01/14) simvastatin (Verified Allergy, Unknown, 07/20/08) Patient Home Medication List Home Medication List Reviewed: Yes Amlodipine Besylate (Norvasc) 5 Mg Tablet, 5 MG PO HS, (Reported) Entered as Reported by: GABY BARTH on 06/11/17 1244 Aspirin (Aspirin EC) 81 Mg Tablet.dr, 81 MG PO HS, (Reported) Entered as Reported by: GABY BARTH on 05/09/15 0855 Cetirizine HCl (Zyrtec) 10 Mg Tablet, 10 MG PO Q48H, (Reported) Entered as Reported by: GABY BARTH on 06/11/17 1244 Clopidogrel Bisulfate (Clopidogrel) 75 Mg Tablet, 75 MG PO HS, (Reported) Entered as Reported by: GABY BARTH on 05/09/15 0855 Fenofibrate,Micronized (Fenofibrate) 134 Mg Capsule, 134 MG PO HS, (Reported) Entered as Reported by: RICK MCCORD on 05/09/15 0241 Isosorbide Mononitrate (Isosorbide Mononitrate ER) 30 Mg Tab.er.24h, 30 MG PO HS, (Reported) Entered as Reported by: GABY BARTH on 05/09/15 0855 Metoprolol Succinate (Metoprolol Succinate) 25 Mg Tab.er.24h, 25 MG PO HS, (Reported) Entered as Reported by: GABY BARTH on 06/11/17 1244 [place]dock 3 Polyunsat Fatty Acids (Fish Oil 1,000 mg Capsule) 1,000 Mg Cap, 2,000 MG PO HS, (Reported) Entered as Reported by: GABY BARTH on 05/09/15 0855 Prednisone (Prednisone) 20 Mg Tab, 40 MG PO DAILY Prescribed by: CALEB MAYES on 01/17/18 0414 Sennosides/Docusate Sodium (Senna S Tablet) 1 Each Tablet, 1 TAB PO HS, (Reported) Entered as Reported by: GABY BARTH on 06/11/17 1245 Tamsulosin HCl (Tamsulosin HCl) 0.4 Mg Cap.er.24h, 0.4 MG PO HS, (Reported) Entered as Reported by: GABY BARTH on 06/11/17 1244 Review of Systems Review of Systems Constitutional: see HPI Respiratory: no symptoms reported Cardiovascular: no symptoms reported Gastrointestinal: no symptoms reported Genitourinary: frequency Musculoskeletal: muscle weakness (left leg) Psychiatric/Neurological: Numbness (left leg) All Other Systems Reviewed Negative Unless Noted: Yes Past Lfyxvwy-Ldkois-Hwzvvl Hx Immunizations Up To Date Tetanus Booster (TDap): Unknown Seasonal Allergies Seasonal Allergies: No Past Medical History Surgeries: Yes Angioplasty, Appendectomy, Cardiac, Coronary Stent, Vascular Surgery Respiratory: Yes Currently Using CPAP: No Currently Using BIPAP: No Cardiac: Yes Coronary Artery Disease, High Cholesterol, Hypertension Neurological: No Reproductive Disorders: No Gastrointestinal: Yes Gastroesophageal Reflux Musculoskeletal: Yes Arthritis Endocrine: No Cancer: No Psychosocial: No Integumentary: No Blood Disorders: No Adverse Reaction/Blood Tranf: No Family Medical History Cancer 19 FATHER Family history: Cardiovascular disease 19 MOTHER G8 SISTER Family history: Coronary thrombosis 19 MOTHER G8 SISTER Family history: Hypertension 19 MOTHER G8 SISTER Hypercholesterolemia 19 MOTHER G8 SISTER Heart Disease, Cancer, Hypertension Physical Exam Vital Signs Vital Signs - First Documented 12/04/22 15:34 Temp 36.5 Pulse 69 Resp 18 B/P (MAP) 158/74 (102) Capillary Refill : Height, Weight, BMI Height: 6'0.00" Weight: 275lbs. 8.0oz. [id number]; 37.8 BMI Method:Stated General Appearance: WD/WN, no apparent distress HEENT: PERRL/EOMI Neck: full range of motion Respiratory: lungs clear, normal breath sounds, no respiratory distress, no accessory muscle use Cardiovascular: regular rate, rhythm Gastrointestinal: normal bowel sounds, non tender, soft Back: normal inspection, other (No midline percussive tenderness or reproducible discomfort. He does have some tenderness over the posterior superior iliac crest; no sciatic nerve tenderness) Extremities: normal range of motion, non-tender, normal inspection, no pedal edema, normal capillary refill, other (1+ dorsalis pedis pulse in the left leg) Neurologic/Psychiatric: no motor/sensory deficits, alert, normal mood/affect, oriented x 3, other (4/5 strength hip flexors on the left 5/5 on the right; 5/5 dorsiflexion both feet same for plantarflexion; he has a weak straight leg raise on the left, this does not intensify any discomfort) Crainal Nerves: normal hearing, normal speech, PERRL; No abnormal eye position Motor/Sensory: sensory deficit (Left lower extremity below the knee; patient cannot tell exactly which toe I am touching, as I am touching his fifth toe he cannot tell that I am touching his foot at all.), weak motor strength LLE Skin: normal color, warm/dry Progress/Results/Core Measures Results/Orders My Orders Orders - ASHLY HERRERA MD Mri Lumbar Spine W/O Contrast (12/04/22 15:49) Vital Signs/I&O 12/04/22 15:34 Temp 36.5 Pulse 69 Resp 18 B/P (MAP) 158/74 (102) iStat Bedside Lab Testing Anion Gap*: 4 Progress Progress Note : Time: 17:15 Progress Note Patient seen and examined by me. Evaluation today includes physical exam and MRI without contrast of the lumbar spine. Patient's physical exam is remarkable for slightly decreased weakness in muscle groups of the left lower extremity, decreased sensation over the dorsum of the foot and fifth toe lateral leg. I am unable to get DTRs at the patella or the ankle on the left leg. Patient has intact perineal sensation. No loss of bowel or bladder function. No significant complaints of pain with range of motion of the left lower extremity. Otherwise exam is benign. Differential diagnosis acute lumbar nerve root compression MRI demonstrates severe L4 nerve root lateral foraminal compression. He also has some disease at L5-S1. Findings are consistent with his physical exam. As the symptoms have just started today we will treat conservatively with NSAIDs, Medrol Dosepak referral for physical therapy. Patient gets most of his coronary artery and peripheral arterial disease care at [facility]. Will recommend follow- up with [facility]. He is not having significant pain at this time. Again no concerns for acute cauda equina as no incontinence or saddle anesthesia. Patient is comfortable with plan of care. Medication sent to his pharmacy. All questions are sought and answered. Return precautions provided. Diagnostic Imaging Diagonstic Imaging: MRI Comments [facility], [place] NAME: CLAYTON MENG [facility] REC#: [id number] PT STATUS: REG ER : 1955 PHYSICIAN: ASHLY HERRERA MD ADMIT DATE: 12/04/22/ER Draft Date of Exam:12/04/22 MRI LUMBAR SPINE W/O CONTRAST PROCEDURE: MRI lumbar spine. TECHNIQUE: Multiplanar, multisequence MRI of the lumbar spine was performed without contrast. INDICATION: Left leg weakness. COMPARISON: None available. FINDINGS: Alignment lumbar spine is normal. No fracture concerning marrow replacing process. There is a mixture Modic type I and type II endplate changes at L4-L5. Modic type II endplate changes are present at L5-S1. Distal thoracic cord is normal in appearance. At L4-L5, there is annular disc bulge. However, there is also sequestered disc material extending cranially in the foraminal and paracentral position. This sequestered disc material causes severe compression lateral recess with mass effect on the exiting left L4 nerve root. This overall causes moderate spinal canal stenosis. At L5-S1, there is disc bulge with posterior endplate ridging that causes moderate to severe bilateral neuroforaminal stenosis, although there is no overt mass effect on exiting nerve roots. No spinal canal stenosis at this level. IMPRESSION: 1. At L4-L5 there is a disc herniation with associated sequestered disc material posterior to L4 vertebral body causing severe compression of the left L4 nerve root in the proximal aspect of the neuroforamen. Dictated on workstation # [id number] Dict: 12/04/22 165 Trans: 12/04/221655 CVB [id number] Interpreted by: MANISH FELDER MD Electronically signed by: Departure Impression Primary Impression: Lumbar nerve root compression Disposition: 01 HOME, SELF-CARE Condition: Stable Departure-Patient Inst. Decision time for Depature: 17:19 Referrals: MIKA DAVE MD (PCP/Family) Primary Care Physician Patient Instructions: Radiculopathy Add. Discharge Instructions: You will need to follow up with Physical Therapy. There are multiple clinics that you can go into. You have an L4 Nerve Root Compression on the left. I am starting you on some steroids - this may increase your appetite, make you feel hot and sweaty, disrupt sleep a little. Take this as directed. Also Naproxen 500mg, twice day for 10 days. Take this medication with food. And because steroids and Naproxen can be hard on the stomach, I am putting you on Protonix (an acid roofer) to help prevent stomach upset/nausea/ulcer formation. If you have pain that progresses/runs down the leg, loss of bowel or bladder function or any other emergent, concerning symptoms, please return to the Emergency Department for re-evaluation. [facility], [address], [address] [place], [place] [address] Dr Mathew Mcgrath Scripts Naproxen (Naprosyn) 500 Mg Tablet 500 MG PO BID, #20 TAB 0 Refills Prov: SHARON,ASHLY M MD 12/04/22 Methylprednisolone (Medrol Dose pack) 4 Mg Tab 4 MG PO UD for 6 Days, #21 TAB as directed per dose pack Prov: ASHLY HERRERA MD 12/04/22 Pantoprazole Sodium (Protonix) 40 Mg Juliapfrancine.dr 40 MG PO DAILY, #30 TAB Prov: ASHLY HERRERA MD 12/04/22 Copy Copies To 1: MIKA DAVE MD, KATHRYN M MD Dec 04, 2022 15:34
--- NOTE | 2022-12-04 16:57 | Diagnostic Imaging Report ---
PROCEDURE: MRI lumbar spine. TECHNIQUE: Multiplanar, multisequence MRI of the lumbar spine was performed without contrast. INDICATION: Left leg weakness. COMPARISON: None available. FINDINGS: Alignment lumbar spine is normal. No fracture concerning marrow replacing process. There is a mixture Modic type I and type II endplate changes at L4-L5. Modic type II endplate changes are present at L5-S1. Distal thoracic cord is normal in appearance. At L4-L5, there is annular disc bulge. However, there is also sequestered disc material extending cranially in the foraminal and paracentral position. This sequestered disc material causes severe compression lateral recess with mass effect on the exiting left L4 nerve root. This overall causes moderate spinal canal stenosis. At L5-S1, there is disc bulge with posterior endplate ridging that causes moderate to severe bilateral neuroforaminal stenosis, although there is no overt mass effect on exiting nerve roots. No spinal canal stenosis at this level. IMPRESSION: 1. At L4-L5 there is a disc herniation with associated sequestered disc material posterior to L4 vertebral body causing severe compression of the left L4 nerve root in the proximal aspect of the neuroforamen. Dictated by: Dictated on workstation # [id number]
[2022-12-04] MEDS ORDERED: NF-METHYLP PO (17:19)
[2022-12-04] MEDS ORDERED: NAPR-1071 PO (17:19)
[2022-12-04] MEDS ORDERED: PANT40SU PO (17:19)
[2022-12-04 17:30] VITALS: BP 147/70
== END 2022-12-04 17:35 | disposition home or self-care (01) ==
LOC: EDUNIT# 15:26 → ER 15:29
DX: G54.4 Lumbosacral root disorders, not elsewhere classified (principal); Z95.820 Peripheral vascular angioplasty status with implants and grafts; Z79.02 Long term (current) use of antithrombotics/antiplatelets; Z79.82 Long term (current) use of aspirin
CPT/HCPCS: 72148

== ENCOUNTER → 2022-12-09 | Outpatient (CLI) | payer MEDICARE ==
[~2022-12-09] MED LIST changes: +NAPR-1071 PO; +NF-METHYLP PO; +PANT40SU PO
[2022-12-09 07:55] LABS: ALBUMIN 4.2 GM/DL (3.2-4.5); POTASSIUM 3.7 MMOL/L (3.6-5.0)
[2022-12-09 07:56] LABS: CALCIUM 9.9 MG/DL (8.5-10.1)
[2022-12-09 07:59] LABS: BILIRUBIN,TOTAL 0.3 MG/DL (0.1-1.0)
[2022-12-09 08:01] LABS: CREATININE SERUM 0.88 MG/DL (0.60-1.30)
== END ==
LOC: LAB 07:11
PROVIDERS: ATTEND Internal Medicine Cardiovascular Disease
DX: I10 Essential (primary) hypertension (principal); I65.29 Occlusion and stenosis of unspecified carotid artery; I25.10 Atherosclerotic heart disease of native coronary artery without angina pectoris; E78.2 Mixed hyperlipidemia
CPT/HCPCS: 36415; 80053; 80061

== ENCOUNTER 2023-01-02 14:52 | Outpatient (RCR) | payer MEDICARE | END 2023-01-05 | disposition home or self-care (01) | PROVIDERS: ATTEND Internal Medicine | DX: M54.42 Lumbago with sciatica, left side (principal) ==

== ENCOUNTER 2023-01-16 14:17 | Outpatient (RCR) | payer MEDICARE | END 2023-02-05 | disposition home or self-care (01) | PROVIDERS: ATTEND Internal Medicine | DX: M54.16 Radiculopathy, lumbar region (principal); I11.9 Hypertensive heart disease without heart failure ==

== ENCOUNTER → 2023-06-18 | Outpatient (CLI) | payer MEDICARE ==
[2023-06-18 09:02] LABS: ALBUMIN 4.3 GM/DL (3.2-4.5); POTASSIUM 3.8 MMOL/L (3.6-5.0)
[2023-06-18 09:04] LABS: CALCIUM 10.4 MG/DL (8.5-10.1)
[2023-06-18 09:05] LABS: TOTAL PROTEIN 8.4 GM/DL (6.4-8.2)
[2023-06-18 09:07] LABS: BILIRUBIN,TOTAL 0.7 MG/DL (0.1-1.0)
[2023-06-18 09:09] LABS: CREATININE SERUM 0.84 MG/DL (0.60-1.30)
== END ==
LOC: LAB 08:39
PROVIDERS: ATTEND Physician Assistant
DX: I10 Essential (primary) hypertension (principal); I65.29 Occlusion and stenosis of unspecified carotid artery; I25.10 Atherosclerotic heart disease of native coronary artery without angina pectoris; R06.09 Other forms of dyspnea; E78.2 Mixed hyperlipidemia; R07.2 Precordial pain; I73.9 Peripheral vascular disease, unspecified
CPT/HCPCS: 36415; 80053; 80061